=== PATIENT | female | born 1990 | race African-American/Black ===

== ENCOUNTER 2021-04-25 04:51 | Inpatient (IN) | payer OTHER, SELFPAY ==
[2021-04-25 06:10] LABS: Urine Blood 1+ (Negative); Urine Glucose Negative (Negative); Urine Protein 1+ (Negative); Urine Specific Gravity 1.025 (1.005-1.030)
[2021-04-25 06:15] LABS: Protime INR 1.12
[2021-04-25 06:16] LABS: Absolute Lymphocytes (CBC) 2.4 K/uL (0.7-4.9); Basophils % 0.9 % (0-1.3); Hematocrit 38.9 % (36.0-45.0); MPV 8.3 fL (7.6-11.3); RBC Red Blood Cell Count 4.28 M/uL (3.86-4.86)
[2021-04-25 06:30] LABS: Urine Specific Gravity/Preg 1.025 (1.005-1.030)
[2021-04-25 06:31] LABS: ALT/SGPT 24 U/L (12-78); AST/SGOT 16 U/L (15-37); Albumin 3.2 g/dL (3.4-5.0); Alkaline Phosphatase 70 U/L (45-117); BUN Blood Urea Nitrogen 11 mg/dL (7-18); Bicarbonate 25 mmol/L (21-32); Bilirubin Direct 0.2 mg/dL (0-0.2); Bilirubin Total 0.6 mg/dL (0.2-1.0); Glucose Level 107 mg/dL (74-106); Magnesium 2.2 mg/dL (1.8-2.4); NT PRO-BNP 1316 pg/mL (<125); Potassium 3.5 mmol/L (3.5-5.1); Protein, Total 7.3 g/dL (6.4-8.2); Sodium Level 142 mmol/L (136-145); Troponin (Emerg Dept Use Only) 0.13 ng/mL (0.0-0.045)
[2021-04-25] MEDS ORDERED: ASPIRIN 81 MG CHEWABLE TABLET ONE (06:46)
[2021-04-25] MEDS ORDERED: FUROSEMIDE 20 MG/ 2ML VIAL ONE (06:46)
[2021-04-25] MEDS ORDERED: NITROGLYCERIN 1 GM PKT TD ONE (06:46)
--- NOTE | 2021-04-25 06:57 | ER ---
Nurse's Notes [facility] Name: Tiffanie Pedroza Age: 30 yrs Sex: Female : 1990 Arrival Date: 04/25/2021 Time: 04:54 Bed 13 Private MD: Diagnosis: Congestive Heart Failure-New Onset, NSTEMI Presentation: 04/25 05:05 Chief complaint: Patient states: she has been having difficulty breathing x 3 weeks bb which is now causing her to have trouble sleeping, and it seems hard to catch her breath, she denies fever. Coronavirus screen: difficulty breathing, Client presents with at least one sign or symptom that may indicate coronavirus-19. Standard/surgical mask placed on the client. Ebola Screen: No symptoms or risks identified at this time. Initial Sepsis Screen: Does the patient meet any 2 criteria? No. Patient's initial sepsis screen is negative. Does the patient have a suspected source of infection? No. Patient's initial sepsis screen is negative. Risk Assessment: Do you want to hurt yourself or someone else? Patient reports no desire to harm self or others. Onset of symptoms was March 2021. 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 - Social history:: Smoking status: Patient reports the use of cigarette tobacco products, smokes one-half pack cigarettes per day, Patient uses alcohol, occasionally. Patient/guardian denies using street drugs. Screenin:23 Abuse screen: Denies threats or abuse. Nutritional screening: No deficits noted. fu Tuberculosis screening: No symptoms or risk factors identified. Fall Risk None identified. Assessment: 05:21 General: Appears in no apparent distress. Behavior is calm, cooperative, appropriate fu for age, Denies fever. Pain: Denies pain. Neuro: Level of Consciousness is awake, alert, obeys commands, Oriented to person, place, time, situation, Moves all extremities. Gait is steady, Speech is normal, Facial symmetry appears normal. Cardiovascular:. Cardiovascular: Rhythm is regular. Respiratory: Reports cough that is non-productive, Airway is patent Respiratory effort is even, Breath sounds are clear bilaterally. 06:22 Reassessment: Patient and/or family updated on plan of care and expected duration. Pain fu level reassessed. Patient is alert, oriented x 3, equal unlabored respirations, skin warm/dry/pink. 07:00 Reassessment: Patient appears in no apparent distress at this time. Patient and/or jl7 family updated on plan of care and expected duration. Pain level reassessed. Patient is alert, oriented x 3, equal unlabored respirations, skin warm/dry/pink. Patient denies pain at this time. Patient states symptoms have improved. 08:00 Reassessment: Patient appears in no apparent distress at this time. No changes from [facility] previously documented assessment. Patient and/or family updated on plan of care and expected duration. Pain level reassessed. Patient is alert, oriented x 3, equal unlabored respirations, skin warm/dry/pink. Pt waiting for room assignment. 09:00 Reassessment: Patient appears in no apparent distress at this time. No changes from [facility] previously documented assessment. Patient and/or family updated on plan of care and expected duration. Pain level reassessed. Patient is alert, oriented x 3, equal unlabored respirations, skin warm/dry/pink. 10:00 Reassessment: Patient appears in no apparent distress at this time. No changes from [facility] previously documented assessment. Patient and/or family updated on plan of care and expected duration. Pain level reassessed. Patient is alert, oriented x 3, equal unlabored respirations, skin warm/dry/pink. Vital Signs: 05:05 Weight 131.54 kg (R); Height 5 ft. 5 in. (165.10 cm) (R); Pain 0/10; bb 05:19 BP 166 / 130; Pulse 97; Resp 16; Temp 98.5; Pulse Ox 97% on R/A; Pain 0/10; fu 05:30 BP 161 / 116; Pulse 90; Resp 25; Pulse Ox 98% on R/A; fu 08:05 BP 160 / 121; Pulse 92; Resp 15; Pulse Ox 98% ; jl7 10:44 BP 148 / 102; Pulse 89; Resp 15; Pulse Ox 98% ; jl7 05:05 Body Mass Index 48.26 (131.54 kg, 165.10 cm) bb ED Course: 04:54 Patient arrived in ED. bp1 05:07 Sadiq Carlson, RN is Primary Nurse. fu 05:08 Triage completed. bb 05:08 Arm band placed on Patient placed in an exam room, on a stretcher, on pulse oximetry. bb 05:20 Alfredo Leone MD is Attending Physician. mh7 05:23 No provider procedures requiring assistance completed. fu 05:47 XRAY Chest (1 view) In Process Unspecified. EDMS 06:03 Basic Metabolic Panel Sent. fu 06:03 Inserted saline lock: 22 gauge in right forearm, using aseptic technique. Blood fu collected. 06:22 Patient has correct armband on for positive identification. Bed in low position. Call fu light in reach. Side rails up X 1. bus monitor on. Pulse ox on. NIBP on. Warm blanket given. 06:55 Lynn Michelle MD is Hospitalizing Provider. mh7 10:46 Patient admitted, IV remains in place. intact, No redness/swelling at site. jl7 Administered Medications: 06:57 Drug: Lasix (furosemide) 20 mg Route: IVP; Site: right antecubital; fu 10:48 Follow up: Response: No adverse reaction jl7 06:57 Drug: Aspirin Chewable Tablet 324 mg Route: PO; fu 10:48 Follow up: Response: No adverse reaction jl7 06:57 Drug: Nitro-Bid (nitroglycerin) Ointment 2 % 1 inches Route: Transdermal; Site: fu anterior chest wall; 10:48 Follow up: Response: No adverse reaction jl7 07:44 Drug: Lovenox (enoxaparin) 1 mg/kg Route: Sub-Q; Site: abdomen; jl7 10:48 Follow up: Response: No adverse reaction jl7 Outcome: 06:56 Decision to Hospitalize by Provider. mh7 11:09 Admitted to Tele accompanied by jourdan, via wheelchair, room 222, with chart, Report jl7 called to TIKA Gonzalez 11:09 Condition: stable 11:09 Discharge instructions given to patient, Instructed on the need for admit, Demonstrated understanding of instructions. 11:10 Patient left the ED. jl7 Signatures: Dispatcher [employer] Lakeisha Neff RN RN bb Leal, Jahala, RN RN jl7 Sadiq Carlson RN Darcy Iraheta Maurice, MD MD 7
--- NOTE | 2021-04-25 06:57 | EDPHYS ---
Physician Documentation [facility] Name: Tiffanie Pedroza Age: 30 yrs Sex: Female : 1990 Arrival Date: 04/25/2021 Time: 04:54 Bed 13 Private MD: ED Physician Alfredo Leone HPI: 04/25 06:06 This 30 yrs old Black Female presents to ER via Ambulatory with complaints of Breathing mh7 Difficulty. 06:06 The patient has shortness of breath with light activity. Onset: The symptoms/episode mh7 began/occurred 3 week(s) ago. Duration: The symptoms are intermittent. The patient's shortness of breath is aggravated by exertion, light activity, is alleviated by sitting up. Severity of symptoms: At their worst the symptoms were moderate 2 day(s) ago, in the emergency department the symptoms are unchanged. 06:06 Associated signs and symptoms: Pertinent positives: chest pain, Tightness, Pertinent mh7 negatives: non-productive cough, productive cough, diaphoresis, dizziness, fever, hemoptysis, loss of consciousness, nausea, numbness in extremities, visual changes, vomiting. 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 - Social history:: Smoking status: Patient reports the use of cigarette tobacco products, smokes one-half pack cigarettes per day, Patient uses alcohol, occasionally. Patient/guardian denies using street drugs. ROS: 06:06 Constitutional: Negative for fever, chills, and weight loss, Eyes: Negative for injury, mh7 pain, redness, and discharge, ENT: Negative for injury, pain, and discharge, Neck: Negative for injury, pain, and swelling, Abdomen/GI: Negative for abdominal pain, nausea, vomiting, diarrhea, and constipation, Back: Negative for injury and pain, : Negative for injury, bleeding, discharge, and swelling, MS/Extremity: Negative for injury and deformity, Skin: Negative for injury, rash, and discoloration, Neuro: Negative for headache, weakness, numbness, tingling, and seizure, Psych: Negative for depression, anxiety, suicide ideation, homicidal ideation, and hallucinations, Allergy/Immunology: Negative for hives, rash, and allergies, Endocrine: Negative for neck swelling, polydipsia, polyuria, polyphagia, and marked weight changes, Hematologic/Lymphatic: Negative for swollen nodes, abnormal bleeding, and unusual bruising. Exam: 06:06 Constitutional: This is a well developed, well nourished patient who is awake, alert, mh7 and in no acute distress. Head/Face: Normocephalic, atraumatic. Eyes: Pupils equal round and reactive to light, extra-ocular motions intact. Lids and lashes normal. Conjunctiva and sclera are non-icteric and not injected. Cornea within normal limits. Periorbital areas with no swelling, redness, or edema. Neck: Trachea midline, no thyromegaly or masses palpated, and no cervical lymphadenopathy. Supple, full range of motion without nuchal rigidity, or vertebral point tenderness. No Meningismus. Chest/axilla: Normal chest wall appearance and motion. Nontender with no deformity. No lesions are appreciated. Cardiovascular: Regular rate and rhythm with a normal S1 and S2. No gallops, murmurs, or rubs. Normal PMI, no JVD. No pulse deficits. 06:06 Abdomen/GI: Soft, non-tender, with normal bowel sounds. No distension or tympany. No guarding or rebound. No evidence of tenderness throughout. Back: No spinal tenderness. No costovertebral tenderness. Full range of motion. Skin: Warm, dry with normal turgor. Normal color with no rashes, no lesions, and no evidence of cellulitis. MS/ Extremity: Pulses equal, no cyanosis. Neurovascular intact. Full, normal range of motion. Neuro: Awake and alert, GCS 15, oriented to person, place, time, and situation. Cranial nerves II-XII grossly intact. Motor strength 5/5 in all extremities. Sensory grossly intact. Cerebellar exam normal. Normal gait. Psych: Awake, alert, with orientation to person, place and time. Behavior, mood, and affect are within normal limits. 06:06 Respiratory: the patient does not display signs of respiratory distress, Respirations: normal, Breath sounds: rhonchi, that are mild, are scattered, Respiratory rate: 16 Vital Signs: 05:05 Weight 131.54 kg (R); Height 5 ft. 5 in. (165.10 cm) (R); Pain 0/10; bb 05:19 BP 166 / 130; Pulse 97; Resp 16; Temp 98.5; Pulse Ox 97% on R/A; Pain 0/10; fu 05:30 BP 161 / 116; Pulse 90; Resp 25; Pulse Ox 98% on R/A; fu 08:05 BP 160 / 121; Pulse 92; Resp 15; Pulse Ox 98% ; jl7 10:44 BP 148 / 102; Pulse 89; Resp 15; Pulse Ox 98% ; jl7 05:05 Body Mass Index 48.26 (131.54 kg, 165.10 cm) bb MDM: 06:54 Differential diagnosis: Anemia Anxiety Reaction asthma, Bronchitis CHF exacerbation, 7 Chronic Obstructive Pulmonary Disease Myocardial Infarction pneumonia, Pneumothorax Psychogenic pulmonary edema, reactive airway disease. Data reviewed: vital signs, nurses notes, EMS record, lab test result(s), EKG, radiologic studies, plain films. Data interpreted: Pulse oximetry: on room air is 98 %. Interpretation: normal. Counseling: I had a detailed discussion with the patient and/or guardian regarding: the historical points, exam findings, and any diagnostic results supporting the discharge/admit diagnosis, the presence of at least one elevated blood pressure reading (>120/80) during this emergency department visit, lab results, radiology results, the need for further work-up and treatment in the hospital. Response to treatment: the patient's symptoms have mildly improved after treatment. 06:56 Patient medically screened. [facility] 04/25 05:30 Order name: Basic Metabolic Panel [facility] 04/25 05:30 Order name: CBC with Diff; Complete Time: 06:23 [facility] 04/25 05:30 Order name: LFT's; Complete Time: 06:42 [facility] 04/25 05:30 Order name: Magnesium; Complete Time: 06:42 [facility] 04/25 05:30 Order name: NT PRO-BNP; Complete Time: 06:42 [facility] 04/25 05:30 Order name: PT-INR; Complete Time: 06:23 [facility] 04/25 05:30 Order name: Troponin (emerg Dept Use Only); Complete Time: 06:42 [facility] 04/25 05:30 Order name: Basic Metabolic Panel; Complete Time: 06:42 EDMS 04/25 06:10 Order name: Urine --Ancillary (enter results); Complete Time: 06:42 cs9 04/25 06:10 Order name: Urine Dipstick-Ancillary; Complete Time: 06:23 EDMS 04/25 08:59 Order name: Comprehensive Metabolic Panel [facility] 04/25 08:59 Order name: CBC with Automated Diff EDMS 04/25 08:59 Order name: CBC with Automated Diff EDMS 04/25 08:59 Order name: Comprehensive Metabolic Panel [facility] 04/25 05:30 Order name: XRAY Chest (1 view) [facility] 04/25 08:50 Order name: Chest Angio [facility] 04/25 08:59 Order name: Echo with Doppler [facility] 04/25 08:59 Order name: D-Dimer [facility] 04/25 08:59 Order name: D-Dimer [facility] 04/25 08:59 Order name: Magnesium [facility] 04/25 08:59 Order name: Magnesium [facility] 04/25 08:59 Order name: NT PRO-BNP [facility] 04/25 08:59 Order name: NT PRO-BNP [facility] 04/25 08:59 Order name: Phosphorus [facility] 04/25 08:59 Order name: Phosphorus [facility] 04/25 08:59 Order name: Troponin I [facility] 04/25 09:11 Order name: COVID-19 (Coronavirus) Document "Date of Onset" if Symptomatic ss 04/25 09:45 Order name: CORONAVIRUS [facility] 04/25 10:32 Order name: SARS-COV-2 RT PCR [facility] 04/25 05:30 Order name: EKG; Complete Time: 05:30 [facility] 04/25 05:30 Order name: Cardiac monitoring; Complete Time: 06:03 [facility] 04/25 05:30 Order name: EKG - Nurse/Tech; Complete Time: 06:03 [facility] 04/25 05:30 Order name: IV Saline Lock; Complete Time: 06:03 [facility] 04/25 05:30 Order name: Labs collected and sent; Complete Time: 06:03 [facility] 04/25 05:30 Order name: O2 Per Protocol; Complete Time: 06:03 [facility] 04/25 05:30 Order name: O2 Sat Monitoring; Complete Time: 06:03 [facility] 04/25 05:30 Order name: Urine Dipstick-Ancillary (obtain specimen); Complete Time: 06:03 [facility] 04/25 05:30 Order name: Urine Test (obtain specimen); Complete Time: 06:03 [facility] 04/25 08:59 Order name: CONS Physician Consult [facility] 04/25 08:59 Order name: Heart Healthy [facility] Administered Medications: 06:57 Drug: Lasix (furosemide) 20 mg Route: IVP; Site: right antecubital; fu 10:48 Follow up: Response: No adverse reaction jl7 06:57 Drug: Aspirin Chewable Tablet 324 mg Route: PO; fu 10:48 Follow up: Response: No adverse reaction jl7 06:57 Drug: Nitro-Bid (nitroglycerin) Ointment 2 % 1 inches Route: Transdermal; Site: fu anterior chest wall; 10:48 Follow up: Response: No adverse reaction 7 07:44 Drug: Lovenox (enoxaparin) 1 mg/kg Route: Sub-Q; Site: abdomen; jl7 10:48 Follow up: Response: No adverse reaction [facility] Disposition Summary: 04/25/21 06:56 Hospitalization Ordered Hospitalization Status: Inpatient Admission [facility] Provider: Lynn Michelle [facility] Location: Telemetry/MedSurg (Inpatient) [facility] Condition: Stable [facility] Problem: new [facility] Symptoms: have improved [facility] Bed/Room Type: Standard [facility] Room Assignment: 222(04/25/21 10:37) Diagnosis - Congestive Heart Failure-New Onset, NSTEMI [facility] Forms: - Medication Reconciliation Form [facility] - SBAR form [facility] Signatures: Dispatcher [employer] [facility] Katerin Peters RN Lakeisha Wilkinson RN Kati Del Real RN RN jl7 Umadhay, Felix, RN RN fu Holmes, Maurice, MD MD [facility] Corrections: (The following items were deleted from the chart) 06:10 06:06 Associated signs and symptoms: Pertinent positives: chest pain, Orthopnea, PND, [facility] Pertinent negatives: non-productive cough, productive cough, diaphoresis, dizziness, fever, hemoptysis, loss of consciousness, nausea, numbness in extremities, visual changes, vomiting, [facility] 10:37 06:56 [facility] dw
[2021-04-25] MEDS ORDERED: ENOXAPARIN 100 MG/ML SYR SQ ONE (07:16)
[2021-04-25] MEDS ORDERED: ONDANSETRON 4 MG/2 ML VIAL IV PRN (08:50)
[2021-04-25] MEDS: VALSARTAN 80 MG TAB PO SCH (09:00)
--- NOTE | 2021-04-25 10:43 | RAD REPORT ---
EXAM DESCRIPTION: CT - Chest Angio - 04/25/2021 9:21 am CLINICAL HISTORY: dyspnea COMPARISON: Chest Single View dated 04/25/2021 Chest Wall: No suspicious thyroid nodules or pathologic lymphadenopathy. Lungs: Limited by respiratory motion. Interlobular septal thickening. Pleura: Small right pleural effusion. Mediastinum/deborah: No pathologic lymphadenopathy. Pulmonary arteries/Aorta: No filling defect identified. No aortic aneurysm. Heart: No significant pericardial effusion. Cardiomegaly. Upper abdomen: No acute abnormality. Bones: No acute abnormality. All CT scans are performed using dose optimization technique as appropriate and may include automated exposure control or mA/KV adjustment according to patient size. IMPRESSION: Negative for pulmonary embolism. Interstitial pulmonary edema with small effusions.
--- NOTE | 2021-04-25 11:34 | RAD REPORT ---
EXAM DESCRIPTION: RAD - Chest Single View - 04/25/2021 5:47 am CLINICAL HISTORY: The patient is 30 years old and is Female; SOB TECHNIQUE: Single view of the chest. COMPARISON: No relevant prior studies available. FINDINGS: Lungs: Linear atelectasis or scarring right midlung. No pulmonary vascular congestion. No consolidation. Pleural space: No pleural effusion or pneumothorax. Heart: Enlargement of the cardiac silhouette. Mediastinum: Unremarkable. Bones/joints: Unremarkable. Upper abdomen: No free air in the visualized upper abdomen. IMPRESSION: 1. Linear atelectasis or scarring right midlung. 2. Enlargement of the cardiac silhouette. Electronically signed by: Missy Ryan MD 04/25/2021 5:57 AM CUSTOMER CARE CONSULTANT Due to temporary technical issues with the PACS/Fluency reporting system, reports are being signed by the in house radiologist without review as a courtesy to ensure prompt reporting. The interpreting r adiologist is fully responsible for the content of the report.
[2021-04-25 12:18] VITALS: BMI 48.2
[2021-04-25] MEDS: FUROSEMIDE 40 MG/4 ML VIAL IV SCH ×2 (12:34→17:06)
[2021-04-25] MEDS: ACETAMINOPHEN 500 MG TAB PO PRN ×2 (12:34→17:13)
[2021-04-25] MEDS: ENOXAPARIN 40 MG/0.4 ML SQ SCH (12:35)
--- NOTE | 2021-04-25 13:16 | EKG ---
Test Date: 2021-04-25 Test Time: 05:45:14 Trap Setter: BLAKE MEASUREMENT RESULTS: Intervals: Rate: 100 ND: 178 QRSD: 90 QT: 386 QTc: 497 Terril: P: 66 ND: 178 QRS: 40 T: 35 INTERPRETIVE STATEMENTS: Normal sinus rhythm Possible Left atrial enlargement Possible Anterior infarct, age undetermined Abnormal ECG No previous ECG available for comparison Electronically Signed On 04-25-21 13:16:02 MANAGER STARS by Ranjit Busch
--- NOTE | 2021-04-25 13:27 | ECHO ---
HEIGHT: 5 ft 5 in WEIGHT: 290 lb 0 oz DATE OF STUDY: 04/25/[address]: Lynn Michelle MD 2-DIMENSIONAL: YES M.MODE: YES DOPPLER: YES COLOR FLOW: YES TDS: PORTABLE: DEFINITY: BUBBLE STUDY: DIAGNOSIS: CONGESTIVE HEART FAILURE CARDIAC HISTORY: CATHERIZATION: SURGERY: PROSTHETIC VALVE: PACEMAKER: MEASUREMENTS (cm) DIASTOLIC (NORMALS) SYSTOLIC (NORMALS) IVSd 1.2 (0.6-1.2) LA Diam 4.3 (1.9-4.0) LVEF 20% LVIDd 6.8 (3.5-5.7) LVIDs 6.2 (2.0-3.5) %FS 9% LVPWd 1.3 (0.6-1.2) Ao Diam 2.7 (2.0-3.7) 2 DIMENSIONAL ASSESSMENT: RIGHT ATRIUM: NORMAL LEFT ATRIUM: DILATED RIGHT VENTRICLE: NORMAL LEFT VENTRICLE: DILATED TRICUSPID VALVE: NORMAL MITRAL VALVE: NORMAL PULMONIC VALVE: NORMAL AORTIC VALVE: NORMAL PERICARDIAL EFFUSION: NONE AORTIC ROOT: NORMAL LEFT VENTRICULAR WALL MOTION: SEVERE GLOBAL HYPOKINESIS DOPPLER/COLOR FLOW: NORMAL COMMENTS: SEVERE GLOBAL HYPOKINESIS. LEFT VENTRICULAR DILATION. LEFT ATRIAL ENLARGEMENT. EJECTION FRACTION 20%. TECHNOLOGIST: YOUNG THAYER
[2021-04-25] MEDS ORDERED: INFLUENZA VACCINE (for 6+ mo) 0.5 ML DOSE IMVAC ONE (15:00)
--- NOTE | 2021-04-25 18:39 | P.HP ---
Certification for Inpatient Patient admitted to: Inpatient With expected LOS: >2 Midnights Patient will require the following post-hospital care: None Practitioner: I am a practitioner with admitting privileges, knowledge of patient current condition, hospital course, and medical plan of care. Services: Services provided to patient in accordance with Admission requirements found in Title 42 Section 412.3 of the Code of Federal Regulations Patient History Date of Service: 04/25/21 Reason for admission: Acute CHF History of Present Illness: Patient is a 30yo who presented to the hospital with dyspnea. Patient was found have significantly elevated blood pressure. Patient states that she started getting high blood pressure after her 1st . She never really followed up but lash year when she was going to a dental appointment to get a tooth extraction they have refused to do a because her blood pressure was elevated. She was told to follow with the primary care provider but she never did. She comes in with severely short of breath and severely elevated blood pressure. Chest x-ray revealed bilateral pulmonary edema and cardiomegaly. Patient was admitted to the hospital for further evaluation. Allergies No Known Allergies Allergy (Unverified 04/25/21 09:20) Home Medications: NK [No Home Meds] 04/25/21 - Social History Smoking Status: Current every day smoker Review of Systems 10-point ROS is otherwise unremarkable Physical Examination - Vital Signs Temperature: 96.9 F Blood Pressure: 144/92 Pulse: 85 Respirations: 20 Pulse Ox (%): 96 - Physical Exam General: Alert, In no apparent distress, Oriented x3 HEENT: Atraumatic, PERRLA, Mucous membr. moist/pink, EOMI, Sclerae nonicteric Neck: Supple, 2+ carotid pulse no bruit, No LAD, Without JVD or thyroid abnormality Respiratory: Diminished, Crackles/rales Cardiovascular: Regular rate/rhythm, Normal S1 S2, No murmurs Gastrointestinal: Normal bowel sounds, Soft and benign, Non-distended, No tenderness Musculoskeletal: No clubbing, No swelling, No tenderness Integumentary: Tenderness/swelling, Erythema, Warmth Neurological: Normal gait, Normal speech, Normal strength at 5/5 x4 extr, Normal tone, Normal affect Lymphatics: No axilla or inguinal lymphadenopathy - Studies Laboratory Data (last 24 hrs) 04/25/21 06:01: PT 12.9 H, INR 1.12 04/25/21 06:01: WBC 7.50, Hgb 13.1, Hct 38.9, Plt Count 278 04/25/21 06:01: Sodium 142, Potassium 3.5, BUN 11, Creatinine 0.77, Glucose 107 H, Magnesium 2.2, Total Bilirubin 0.6, AST 16, ALT 24, Alkaline Phosphatase 70 Assessment & Plan - Problems (Diagnosis) (1) Acute CHF Current Visit: Yes Status: Acute (2) Skin abscess Current Visit: Yes Status: Acute - Plan 1. Echocardiogram 2. We will start patient on an SHAHRZAD inhibitor or an ARB 3. We will start patient on a Beta gustavo 4. Cardiology consultation 5. Aggressive diuresis 6. Strict I's and O's 7. Repeat CXR 8. Daily weights 9. Education regarding diet and treatment of congestive heart failure 10. Continue with antibiotic therapy - Advance Directives Does patient have a Living Will: No Does patient have a Durable POA for Healthcare: No
[2021-04-25] MEDS: HYDRALAZINE HCL 20 MG/ML VIAL IV PRN (21:58)
[2021-04-26] MEDS ORDERED: MORPHINE 2 MG/ML SYR IV ONE (00:11)
[2021-04-26] MEDS ORDERED: LABETALOL 20 MG/4ML SYRINGE IV PRN (00:11)
[2021-04-26 06:02] LABS: Absolute Lymphocytes (CBC) 2.7 K/uL (0.7-4.9); Basophils % 0.7 % (0-1.3); Hematocrit 38.8 % (36.0-45.0); Lymphocytes % 36.4 % (15.3-44.8); MPV 8.6 fL (7.6-11.3); RBC Red Blood Cell Count 4.27 M/uL (3.86-4.86)
[2021-04-26 06:27] LABS: ALT/SGPT 19 U/L (12-78); AST/SGOT 12 U/L (15-37); Alkaline Phosphatase 69 U/L (45-117); BUN Blood Urea Nitrogen 10 mg/dL (7-18); Bicarbonate 27 mmol/L (21-32); Bilirubin Total 0.8 mg/dL (0.2-1.0); Glucose Level 93 mg/dL (74-106); NT PRO-BNP 1570 pg/mL (<125); Phosphorus 3.2 mg/dL (2.5-4.9); Protein, Total 7.3 g/dL (6.4-8.2); Sodium Level 139 mmol/L (136-145)
[2021-04-26 06:30] LABS: Potassium 2.8 mmol/L (3.5-5.1)
[2021-04-26] MEDS ORDERED: KCL 20 MEQ/100 mL IVPB 20 MEQ/100 ML BAG IV SCH (07:00)
[2021-04-26] MEDS ORDERED: POTASSIUM 25 MEQ EFFERV TAB PO ONE (08:08)
[2021-04-26] MEDS: VALSARTAN 80 MG TAB PO SCH ×2 (08:50→20:32)
[2021-04-26] MEDS: FUROSEMIDE 40 MG/4 ML VIAL IV SCH ×2 (08:51→18:52)
[2021-04-26] MEDS: ENOXAPARIN 40 MG/0.4 ML SQ SCH (08:51)
[2021-04-26] MEDS ORDERED: METOPROLOL TAR 50 MG TAB PO SCH (09:00)
[2021-04-26] MEDS ORDERED: POTASSIUM CL SA 10 MEQ TAB PO ONE (14:32)
[2021-04-26] MEDS: VANCOMYCIN 2 GM in NA CHLORIDE 0.9% 500 ML IVPB SCH (14:35)
[2021-04-26] MEDS: carvediloL 25 MG TAB PO SCH (18:53)
[2021-04-26] MEDS: AMPICILLIN/SULBACT 3 GM in NA CHLORIDE 0.9% 100 ML IVPB SCH ×2 (18:57→23:56)
[2021-04-26] MEDS: HYDRALAZINE HCL 20 MG/ML VIAL IV PRN (20:30)
--- NOTE | 2021-04-26 20:52 | P.PN ---
Subjective Date of Service: 04/26/21 Spoke with patient regarding echocardiogram findings. Patient was understandably very upset. Continue with diuresis at this time. Continue with strict blood pressure control. General surgery consultation pending Review of Systems 10-point ROS is otherwise unremarkable Physical Examination - Vital Signs Temperature: 96.9 F Blood Pressure: 144/92 Pulse: 85 Respirations: 20 Pulse Ox (%): 96 - Physical Exam General: Alert, In no apparent distress, Oriented x3 HEENT: Atraumatic, PERRLA, EOMI Neck: Supple, JVD not distended Respiratory: Clear to auscultation bilaterally, Normal air movement Cardiovascular: Regular rate/rhythm, Normal S1 S2 Gastrointestinal: Normal bowel sounds, Soft and benign, Non-distended, No tenderness Musculoskeletal: No clubbing, No swelling, No tenderness Neurological: Sensation intact, Cranial nerves 3-12 intact - Studies Medications List Reviewed: Yes Assessment & Plan - Problems (Diagnosis) (1) Acute CHF Status: Acute (2) Skin abscess Status: Acute - Plan 1. Echocardiogram Showed an ejection fraction of 20% 2. Continue losartan 3. Started carvedilol 4. Cardiology consultation Appreciated 5. Aggressive diuresis 6. Strict I's and O's 7. Repeat CXR 8. Daily weights 9. Education regarding diet and treatment of congestive heart failure 10. Continue with antibiotic therapy; general surgery consultation pending Discharge Plan: Home Plan to discharge in: Greater than 2 days - Advance Directives Does patient have a Living Will: No Does patient have a Durable POA for Healthcare: No - Code Status/Comfort Care Code Status Assessed: Yes Code Status: Full Code Critical Care: No Time Spent Managing PTS Care (In Minutes): 35
[2021-04-27] MEDS: MORPHINE 2 MG/ML SYR IV PRN ×2 (01:24→22:13)
[2021-04-27] MEDS: VANCOMYCIN 2 GM in NA CHLORIDE 0.9% 500 ML IVPB SCH ×2 (01:24→16:25)
[2021-04-27] MEDS: carvediloL 25 MG TAB PO SCH ×2 (05:47→18:22)
[2021-04-27] MEDS: AMPICILLIN/SULBACT 3 GM in NA CHLORIDE 0.9% 100 ML IVPB SCH ×4 (05:48→23:57)
[2021-04-27] MEDS: VALSARTAN 80 MG TAB PO SCH ×2 (09:00→20:24)
[2021-04-27] MEDS: FUROSEMIDE 40 MG/4 ML VIAL IV SCH ×2 (09:32→18:22)
[2021-04-27] MEDS: ENOXAPARIN 40 MG/0.4 ML SQ SCH (09:32)
--- NOTE | 2021-04-27 15:07 | P.CNS ---
Date of Consult: 04/27/21 PC: I was asked to see this patient in regards to her large abscess on her flank. HPC: Patient has had this for the last 2 days. Has gradually been increasing in size. Causing more pain and discomfort. 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 States that she has been in relatively good, but does have a history of heart failure. O/E: Vital signs are stable HEENT: Within normal limits Lead: On the patient's right side, in one of the folds just above her waist, has an area measuring approximately 2 cm in size. Is an abscess that has formed, but is almost ready to burst. Impression: Patient has a abscess on her right flank Plan: We will put warm compresses to this area as well as some benzocaine. I think this was going to burst almost by itself. If it has not we will take her to the OR in the morning for incision, drainage and sharp debridement. Thank you.
[2021-04-27] MEDS ORDERED: BENZOCAINE 20% 5.25 GM JAR TOP SCH (17:00)
[2021-04-27] MEDS: METHYL SALICYLATE/MENTHOL 3 OZ TUBE TOP SCH ×2 (18:23→20:23)
--- NOTE | 2021-04-27 21:34 | P.PN ---
Date of Service: 04/27/21 Subjective Should continue to improve with any complaints. Clinical symptoms are improving. Patient still with the abscess which is not ruptured. Continue with supportive care and general surgery consultation pending. Physical Examination - Vital Signs Reviewed - Physical Exam General: Alert, In no apparent distress, Oriented x3 Respiratory: Basilar crackles Cardiovascular: Regular rate/rhythm, Normal S1 S2 Gastrointestinal: Normal bowel sounds, Soft and benign, Non-distended, No tenderness Musculoskeletal: No clubbing, No swelling, No tenderness Neurological: Sensation intact, Cranial nerves 3-12 intact Skin: Infected sebaceous cyst Assessment & Plan - Problems (Diagnosis) (1) Acute CHF Current Visit: Yes Status: Acute (2) Skin abscess Current Visit: Yes Status: Acute - Plan 1. Echocardiogram Showed an ejection fraction of 20%. Cardiomyopathy. Cardiac medications 2. Continue with losartan 3. Continue carvedilol 4. Cardiology consultation follow up Outpatient 5. Aggressive diuresis 6. Strict I's and O's 7. May need surgical intervention. 8. Daily weights 9. Education regarding diet and treatment of congestive heart failure 10. Continue with antibiotic therapy along with warm compressor - Advance Directives Does patient have a Living Will: No Does patient have a Durable POA for Healthcare: No
[2021-04-28] MEDS: VANCOMYCIN 2 GM in NA CHLORIDE 0.9% 500 ML IVPB SCH (03:01)
[2021-04-28] MEDS: AMPICILLIN/SULBACT 3 GM in NA CHLORIDE 0.9% 100 ML IVPB SCH (05:48)
[2021-04-28] MEDS: carvediloL 25 MG TAB PO SCH (05:50)
[2021-04-28 06:02] LABS: BUN Blood Urea Nitrogen 12 mg/dL (7-18); Bicarbonate 25 mmol/L (21-32); Glucose Level 101 mg/dL (74-106); Magnesium 2.1 mg/dL (1.8-2.4); Phosphorus 4.1 mg/dL (2.5-4.9); Potassium 3.3 mmol/L (3.5-5.1); Sodium Level 141 mmol/L (136-145)
--- NOTE | 2021-04-28 06:08 | P.DS ---
Admission Date: 04/25/21 Discharge Date: 04/28/21 Primary Care Provider: none Disposition: ROUTINE DISCHARGE Discharge Condition: GOOD Reason for Admission: Acute CHF Consultations: Surgery-Dr. Mckenna Cardiology-Dr. Busch Procedures: COVID: Negative ECHO: MEASUREMENTS (cm) DIASTOLIC (NORMALS) SYSTOLIC (NORMALS) IVSd 1.2 (0.6-1.2) LA Diam 4.3 (1.9-4.0) LVEF 20% LVIDd 6.8 (3.5-5.7) LVIDs 6.2 (2.0-3.5) %FS 9% LVPWd 1.3 (0.6-1.2) Ao Diam 2.7 (2.0-3.7) 2 DIMENSIONAL ASSESSMENT: RIGHT ATRIUM: NORMAL LEFT ATRIUM: DILATED RIGHT VENTRICLE: NORMAL LEFT VENTRICLE: DILATED TRICUSPID VALVE: NORMAL MITRAL VALVE: NORMAL PULMONIC VALVE: NORMAL AORTIC VALVE: NORMAL PERICARDIAL EFFUSION: NONE AORTIC ROOT: NORMAL LEFT VENTRICULAR WALL MOTION: SEVERE GLOBAL HYPOKINESIS DOPPLER/COLOR FLOW: NORMAL COMMENTS: SEVERE GLOBAL HYPOKINESIS. LEFT VENTRICULAR DILATION. LEFT ATRIAL ENLARGEMENT. EJECTION FRACTION 20%. CT Chest: COMPARISON: Chest Single View dated 04/25/2021 Chest Wall: No suspicious thyroid nodules or pathologic lymphadenopathy. Lungs: Limited by respiratory motion. Interlobular septal thickening. Pleura: Small right pleural effusion. Mediastinum/deborah: No pathologic lymphadenopathy. Pulmonary arteries/Aorta: No filling defect identified. No aortic aneurysm. Heart: No significant pericardial effusion. Cardiomegaly. Upper abdomen: No acute abnormality. Bones: No acute abnormality. All CT scans are performed using dose optimization technique as appropriate and may include automated exposure control or mA/KV adjustment according to patient size. IMPRESSION: Negative for pulmonary embolism. Interstitial pulmonary edema with small effusions. Medical Problem List: Dyspnea secondary to acute on chronic systolic CHF Hypertension Right flank small abscess suspect sebaceous cyst Brief History of Present Illness: 30-year-old -[place] female presented with shortness of breath. Patient found to have significantly elevated blood pressure. Patient reports high blood pressure with her first . She did not follow-up with anybody thereafter. Chest x-ray revealed bilateral pulmonary edema with cardiomegaly. Patient admitted for treatment. Hospital Course: Patient presented with dyspnea secondary to acute on chronic systolic CHF complicated with elevated blood pressure with hypertension. Patient was admitted for treatment. Patient received diuresis and blood pressure medication. Her condition improved with medication. Echocardiogram shows ejection fraction 20% with severe global hypokinesis and left ventricular d ilation. CT chest was negative for pulmonary embolism. Patient seen and evaluated by cardiology. Patient has done well with medication. At discharge the patient will continue with the 1500 cc/day fluid restriction and low-salt diet. Recommend to monitor her weight daily. If her weight increases by more than 5 pounds she is to contact her PCP or cardiology for further recommendation. At discharge the patient will continue with aspirin 81 mg daily, carvedilol 25 mg 1 pill twice daily, Diovan 160 mg 1 pill twice daily, and Lasix 40 mg 1 pill twice daily. Recommend to maintain blood pressure less than 130/80. If blood pressure remains above 140/90 she is to contact her PCP or cardiology for further recommendation. Lasix can be further adjusted if with good urinary output and no further edema. This can be addressed by her PCP or cardiology. Education on CHF, hypertension provided. If the patient can get on insurance, patient may benefit with Tamtron in the future. Recommend follow-up with cardiology in 1 to 2 weeks to follow-up his hospitalization and continue her care. Recommend follow-up with PCP in 1 to 2 weeks to follow-up his hospitalization and continue her care. Patient had small right flank abscess likely infected sebaceous cyst. This ruptured on its own without requiring any surgical intervention. Patient was to have surgical I&D but patient prefers to go home. Wound care addressed in detail with patient. Recommend to clean with antibacterial soap and water at least twice daily. Patient may apply warm compress to help with expression of fluid. Apply Bactroban ointment and gauze to the area twice daily. Patient will continue with Augmentin 500 mg 1 pill twice daily for 7 days. Recommend to follow-up with surgery as an outpatient if abscess persisted or got worse. Vital Signs/Physical Exam: Temp Pulse Resp BP Pulse Ox 97.3 F 79 19 140/84 93 04/28/21 04:00 04/28/21 05:50 04/28/21 04:00 04/28/21 05:50 04/28/21 04:00 General: Alert, In no apparent distress, Oriented x3, Cooperative HEENT: Atraumatic Neck: Supple Respiratory: Clear to auscultation bilaterally Cardiovascular: Normal pulses, Regular rate/rhythm Gastrointestinal: Normal bowel sounds Musculoskeletal: No erythema, No tenderness, No warmth Integumentary: Other (Pain/abscess to the right flank.) Neurological: Normal speech, Normal strength at 5/5 x4 extr, Normal tone Laboratory Data at Discharge: WBC 7.30 K/uL (4.3-10.9) 04/26/21 05:10 Hgb 13.3 g/dL (12.0-15.0) 04/26/21 05:10 Hct 38.8 % (36.0-45.0) 04/26/21 05:10 Plt Count 244 K/uL (152-406) 04/26/21 05:10 PT 12.9 SECONDS (9.5-12.5) H 04/25/21 06:01 INR 1.12 04/25/21 06:01 Sodium 141 mmol/L (136-145) 04/28/21 05:21 Potassium 3.3 mmol/L (3.5-5.1) L 04/28/21 05:21 BUN 12 mg/dL (7-18) 04/28/21 05:21 Creatinine 0.87 mg/dL (0.55-1.3) 04/28/21 05:21 Glucose 101 mg/dL (74-106) 04/28/21 05:21 Phosphorus 4.1 mg/dL (2.5-4.9) 04/28/21 05:21 Magnesium 2.1 mg/dL (1.8-2.4) 04/28/21 05:21 Total Bilirubin 0.8 mg/dL (0.2-1.0) 04/26/21 05:10 AST 12 U/L (15-37) L 04/26/21 05:10 ALT 19 U/L (12-78) 04/26/21 05:10 Alkaline Phosphatase 69 U/L (45-117) 04/26/21 05:10 Troponin I 0.13 ng/mL (0.0-0.045) H 04/25/21 12:06 Home Medications: Amoxicillin/Potassium Clav [Augmentin 500-125 Tablet] 1 each PO BID #14 tablet 04/28/21 Aspirin [Aspirin EC 81 MG] 81 mg PO DAILY #90 tablet.dr 04/28/21 Furosemide [Lasix] 40 mg PO BIDL #60 tab 04/28/21 Mupirocin Oint [Bactroban 2% Ointment] 8 appl TOP BID #1 tube 04/28/21 Valsartan [Diovan] 160 mg PO BID #60 tab 04/28/21 carvediloL [Coreg*] 25 mg PO BID 6AM 6PM #60 tab 04/28/21 New Medications: Aspirin [Aspirin EC 81 MG] 81 mg PO DAILY #90 tablet. Amoxicillin/Potassium Clav [Augmentin 500-125 Tablet] 1 each PO BID #14 tablet Mupirocin Oint [Bactroban 2% Ointment] 8 appl TOP BID #1 tube carvediloL [Coreg*] 25 mg PO BID 6AM 6PM #60 tab Valsartan [Diovan] 160 mg PO BID #60 tab Furosemide [Lasix] 40 mg PO BIDL #60 tab Physician Discharge Instructions: Patient presented with dyspnea secondary to acute on chronic systolic CHF complicated with elevated blood pressure with hypertension. Patient was admitted for treatment. Patient received diuresis and blood pressure medication. Her condition improved with medication. Echocardiogram shows ejection fraction 20% with severe global hypokinesis and left ventricular dilation. CT chest was negative for pulmonary embolism. Patient seen and evaluated by cardiology. Patient has done well with medication. At discharge the patient will continue with the 1500 cc/day fluid restriction and low-salt diet. Recommend to monitor her weight daily. If her weight increases by more than 5 pounds she is to contact her PCP or cardiology for further recommendation. At discharge the patient will continue with aspirin 81 mg daily, carvedilol 25 mg 1 pill twice daily, Diovan 160 mg 1 pill twice daily, and Lasix 40 mg 1 pill twice daily. Recommend to maintain blood pressure less than 130/80. If blood pressure remains above 140/90 she is to contact her PCP or cardiology for further recommendation. Lasix can be further adjusted if with good urinary output and no further edema. This can be addressed by her PCP or cardiology. Education on CHF, hypertension provided. If the patient can get on insurance, patient may benefit with Entresto in the future. Recommend follow- up with cardiology in 1 to 2 weeks to follow-up his hospitalization and continue her care. Recommend follow-up with PCP in 1 to 2 weeks to follow-up his hospitalization and continue her care. Patient had small right flank abscess likely infected sebaceous cyst. This ruptured on its own without requiring any surgical intervention. Patient was to have surgical I&D but patient prefers to go home. Wound care addressed in detail with patient. Recommend to clean with antibacterial soap and water at least twice daily. Patient may apply warm compress to help with expression of fluid. Apply Bactroban ointment and gauze to the area twice daily. Patient will continue with Augmentin 500 mg 1 pill twice daily for 7 days. Recommend to follow-up with surgery as an outpatient if abscess persisted or got worse. Diet: AHA Activity: Ad mary Followup: NONE,NONE [Primary Care Provider] - Time spent managing pt's care (in minutes): 55
[2021-04-28] MEDS ORDERED: POTASSIUM CL SA 10 MEQ TAB PO ONE (09:00)
[2021-04-28] MEDS: METHYL SALICYLATE/MENTHOL 3 OZ TUBE TOP SCH (09:00)
[2021-04-28] MEDS: VALSARTAN 80 MG TAB PO SCH (09:00)
[2021-04-28] MEDS: ENOXAPARIN 40 MG/0.4 ML SQ SCH (09:02)
[2021-04-28] MEDS: FUROSEMIDE 40 MG/4 ML VIAL IV SCH (09:03)
[2021-04-28 09:15] VITALS: O2SAT 99
--- NOTE | 2021-04-28 12:07 | CON ---
Date of Consultation: 04/25/2021 History Of Present Illness: She is 30 years old. She was admitted for congestive heart failure and hypertensive crisis. Echocardiogram showed ejection fraction of 20%. I saw Ms. Pedroza on 1. When she came in, she mostly came in because of shortness of breath that has been going on for ab out a month or 2. Denied any chest pain. Denied any syncope or palpitation. Allergies: NONE. Past Medical History: None. Medications: At home are none. Review of Systems: Negative. Social History: Negative. Family History: Negative. Physical Examination: Vital Signs: When she came in, her blood pressure was 178/108. She weighed 290 pounds. Otherwise, her vital signs were stable. She was in sinus rhythm. O2 saturation was 97% on room air. HEENT: Negative. Neck: Supple with no bruit. Chest: Revealed some rales. Cardiac: Revealed a regular rhythm and rate with an S3 and S4 gallops. Abdomen: Obese, but benign. Extremities: Revealed 2+ edema. Diagnostic Data: Chest x-ray showed volume overload. Her potassium was 3.3. Her creatinine 0.87. The rest of the blood work was normal. Her echocardiogram showed an ejection fraction of 20%. Impression And Plan: Acute systolic congestive heart failure, dilated cardiomyopathy, could be idiop athic and second could be related to hypertension. She needs to be on carvedilol. She needs to be o n SHAHRZAD inhibitor. She needs to be on Lasix. She needs her blood pressure very well controlled. My g ut feeling is that she will need a defibrillator down the road. Entresto will be a good choice. I a m not so sure if she could afford it. I will discuss the case further with Dr. Michelle. UGO/GABINO Voice ID: [id number] Report ID: [id number]
[2021-04-28 12:31] VITALS: BP 144/92; TEMP 96.9
== END 2021-04-28 11:15 | disposition home or self-care (01) | DRG 291 ==
LOC: ER 04:51 → ERHOLD 08:50 → 2ND 11:04
PROVIDERS: ADMIT Hospitalist; ATTEND Hospitalist
DX: I11.0 Hypertensive heart disease with heart failure (principal); I50.23 Acute on chronic systolic (congestive) heart failure; L72.3 Sebaceous cyst; F17.210 Nicotine dependence, cigarettes, uncomplicated; Z20.822 Contact with and (suspected) exposure to COVID-19
CPT/HCPCS: 36415; 71045; 71275; 80048; 80053; 80076; 80202; 81003; 81025; 83735; 83880; 84100; 84132; 84484; 85025; 85379; 85610; 93005; 93306; 96372; 96374; 99285; J0295; J0360; J1650; J1940; J2270; J3370; J3480; J7040; Q9967; U0003

== ENCOUNTER → 2023-08-23 | Emergency (ER) | payer SELFPAY ==
[~2023-08-23] MED LIST: HYDRALAZINE HCL 20 MG/ML VIAL ONE; KCL 20 MEQ/100 mL IVPB 100 ML IV ONE; NA CHLORIDE 0.9% 1,000 ML ONE; TENECTEPLASE 50 MG/10 ML VIAL IV ONE
[2023-08-23 06:16] LABS: Absolute Lymphocytes (CBC) 0.7 K/uL (0.7-4.9); Absolute Monocytes 0.3 K/uL (0.1-1.3); Absolute Neutrophil 4.7 K/uL (1.8-8.0); Basophils % 0.3 % (0-1.3); Eosinophils % 0.8 % (0-4.4); Hematocrit 34.3 % (36.0-45.0); Hemoglobin 11.9 g/dL (12.0-15.0); Lymphocytes % 12.2 % (15.3-44.8); MCH 31.8 pg (27.0-35.0); MCHC 34.6 g/dL (32.0-36.0); MCV 91.9 fL (80-100); MPV 8.6 fL (7.6-11.3); Monocytes % 4.9 % (3.3-12.3); Neutrophils % 81.8 % (41.7-73.7); Nucleated Red Blood Cells % 0.2 % (0-0); Platelets 228 thou/uL (152-406); RBC Red Blood Cell Count 3.73 M/uL (3.86-4.86); Red Cell Distribution Width 13.5 % (12.1-15.2)
[2023-08-23 06:19] LABS: PTT, Activated Partial Thromb 29.2 SECONDS (24.3-36.9); Protime INR 1.28
[2023-08-23 06:32] LABS: Albumin 2.9 g/dL (3.4-5.0); Albumin/Globulin Ratio 0.7 (1.1-1.8); Anion Gap 11.7 mEq/L (5.0-15.0); Bilirubin Direct 0.4 mg/dL (0-0.2); Bilirubin Indirect, Calculated 1.2 mg/dL (0.2-0.8); Bilirubin Total 1.6 mg/dL (0.2-1.0); Globulin 3.9 g/dL (2.3-3.5); Potassium 2.7 mEq/L (3.5-5.1); Protein, Total 6.8 g/dL (6.4-8.2)
[2023-08-23 06:38] LABS: Troponin High Sensitivity 125.4 pg/mL (<58.9)
--- NOTE | 2023-08-23 07:00 | RAD REPORT ---
EXAM DESCRIPTION: CT - Neck Angio - 08/23/2023 6:34 am CLINICAL HISTORY: NUMBNESS COMPARISON: No comparisons TECHNIQUE: CT angiography of the neck vessels was performed with maximum intensity reformatted image s. CAROTID STENOSIS REFERENCE USING NASCET CRITERIA: Mild - <50% stenosis. Moderate - 50-69% stenosis. Severe - 70-94% stenosis. Near occlusion - 95-99% stenosis. Occluded - 100% stenosis. All CT scans are performed using dose optimization technique as appropriate and may include automated exposure control or mA/KV adjustment according to patient size. FINDINGS: A left aortic arch is identified with normal three vessel configuration of the great vesse ls. No significant flow abnormality is seen of the common carotid bilaterally. No significant stenosis is identified involving the cervical segments of both internal carotid arteri es. Normal flow is seen within both vertebral arteries. Suboptimal opacification and streak artifact sign ificantly limits evaluation. IMPRESSION: No significant flow abnormality of the neck vessels is identified. Poorly evaluated vert ebral arteries due to suboptimal opacification and streak artifact.
--- NOTE | 2023-08-23 07:03 | RAD REPORT ---
EXAM DESCRIPTION: CT - Head angio - 08/23/2023 6:34 am CLINICAL HISTORY: STROKE ALERT COMPARISON: Ct Stroke Brain Wo Cont dated 08/23/2023 TECHNIQUE: CT angiography of the head was performed with maximum intensity reformatted images. 3D ma ximum intensity pixel (MIP) reconstructions were created All CT scans are performed using dose optimization technique as appropriate and may include automated exposure control or mA/KV adjustment according to patient size. FINDINGS: Anterior circulation: Right M1 MCA occlusion. No hemodynamically significant stenosis. No arteriovenous malformation identi fied. Posterior circulation: No aneurysm or large vessel occlusion. No hemodynamically significant stenosis. No arteriovenous malf ormation identified. IMPRESSION: Right M1 MCA occlusion. Discussed with Dr. Maharaj by Dr. Joe at 0656 on 08/23/23
--- NOTE | 2023-08-23 07:04 | RAD REPORT ---
EXAM DESCRIPTION: RAD - Chest Single View - 08/23/2023 6:42 am CLINICAL HISTORY: COPD COMPARISON: Chest Single View dated 04/25/2021 FINDINGS: Lines: None. Lungs: Diffuse prominence of the pulmonary interstitium. Pleural: No significant pleural effusions or pneumothorax. Cardiac: Enlarged cardiopericardial silhouette. Mediastinum: Within normal limits. Bones: No acute fractures. Other: None IMPRESSION: Pulmonary vascular congestion which may be chronic. Cardiomegaly.
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
[2023-08-23 08:32] VITALS: O2SAT 100
[2023-08-23 09:07] VITALS: BP 144/106; TEMP 99.3
--- NOTE | 2023-08-23 10:17 | RAD REPORT ---
EXAM DESCRIPTION: CT - Ct Stroke Brain Wo Cont - 08/23/2023 7:14 am ADDENDUM #1 Critical findings were discussed with and acknowledged by Dr. Arturo Maharaj MD on 08/23/2023 6: 00 AM CDT. Electronically signed by: Nehemiah Ibarra MD 08/23/2023 06:22 AM CDT End of Addendum CLINICAL HISTORY: LEFT SIDED WEAKNESS COMPARISON: None. TECHNIQUE: CT HEAD WITHOUT IV CONTRAST on 08/23/2023 5:40 AM CDT This exam was performed according to our departmental dose-optimization program, which includes autom ated exposure control, adjustment of the mA and/or kV according to patient size and/or use of iterati ve reconstruction technique. FINDINGS: There is no acute hemorrhage, mass effect or midline shift. Youngblood-white differentiation is preserved. There is no hydrocephalus. There is no significant volume loss for age. The calvarium is intact. Orbits and globes are unremarkable. The paranasal sinuses are clear. Mastoid air cells are clear. IMPRESSION: No acute intracranial findings. Electronically signed by: Nehemiah Ibarra MD 08/23/2023 05:54 AM CDT Due to temporary technical issues with the PACS/Fluency reporting system, reports are being signed by the in house radiologist without review as a courtesy to ensure prompt reporting. The interpreting r adiologist is fully responsible for the content of the report.
--- NOTE | 2023-08-24 14:11 | EKG ---
Test Date: 2023-08-23 Test Time: 04:55:48 Call Center Support Representative: CAROLIN MEASUREMENT RESULTS: Intervals: Rate: 98 NC: 170 QRSD: 116 QT: 384 QTc: 490 [place]: P: 80 NC: 170 QRS: 102 T: -66 INTERPRETIVE STATEMENTS: Sinus rhythm Incomplete left bundle branch block ST & T wave abnormality, consider inferolateral ischemia Prolonged QT Abnormal ECG Compared to ECG 04/25/2021 05:45:14 Left bundle-branch block now present ST (T wave) deviation now present Possible ischemia now present Prolonged QT interval now present Myocardial infarct finding no longer present Electronically Signed On 08-24-23 14:06:10 CDT by Kevin rAmstrong
== END ==
LOC: ER 05:34
DX: I67.81 Acute cerebrovascular insufficiency (principal); R29.711 NIHSS score 11; I10 Essential (primary) hypertension; I50.9 Heart failure, unspecified
CPT/HCPCS: 36415; 70450; 70496; 70498; 71045; 80048; 80076; 82947; 84484; 85025; 85610; 85730; 92977; 93005; 96365; 96367; 96375; 99291; J0360; J3101; J3480; J7030; Q9967

== ENCOUNTER 2024-03-24 22:43 | Emergency (ER) | payer OTHER ==
[2024-03-24] MEDS ORDERED: LIDOCAINE 2% W/EPI 1:200,000 MPF 20 ML VIAL IM ONE (23:47)
[2024-03-24] MEDS ORDERED: MORPHINE 4 MG/ML SYR ONE (23:49)
[2024-03-24] MEDS ORDERED: CLINDAMYCIN 900MG/D5W 900 MG/50 ML IVPB IV ONE (23:49)
[2024-03-24 23:52] LABS: Absolute Eosinophils 0.2 K/uL (0-0.5); Absolute Lymphocytes (CBC) 2.2 K/uL (0.7-4.9); Absolute Monocytes 0.6 K/uL (0.1-1.3); Absolute Neutrophil 3.3 K/uL (1.8-8.0); Basophils % 0.8 % (0-1.3); Eosinophils % 3.7 % (0-4.4); Hematocrit 32.8 % (36.0-45.0); Hemoglobin 11.2 g/dL (12.0-15.0); Lymphocytes % 34.6 % (15.3-44.8); MCH 32.2 pg (27.0-35.0); MCHC 34.2 g/dL (32.0-36.0); MCV 94.1 fL (80-100); MPV 8.4 fL (7.6-11.3); Monocytes % 9.6 % (3.3-12.3); Neutrophils % 51.3 % (41.7-73.7); Nucleated Red Blood Cells % 0.2 % (0-0); Platelets 240 thou/uL (152-406); RBC Red Blood Cell Count 3.49 M/uL (3.86-4.86); Red Cell Distribution Width 13.3 % (12.1-15.2)
[2024-03-25 00:02] LABS: Anion Gap 8.6 mEq/L (5.0-15.0); Potassium 3.6 mEq/L (3.5-5.1)
[2024-03-25] MEDS ORDERED: MORPHINE 4 MG/ML SYR ONE (00:12)
--- NOTE | 2024-03-25 00:31 | ER ---
Nurse's Notes [facility] Name: Tiffanie Pedroza Age: 33 yrs Sex: Female : 1990 Arrival Date: 03/24/2024 Time: 22:43 Bed 20 Private MD: Diagnosis: Cutaneous abscess of back [any part, except buttock] Presentation: 03/24 22:53 Chief complaint: Patient states: ABSCESS ON THE LOW BACK FOR THE PAST FOUR DAYS. ha1 22:53 Coronavirus screen: Vaccine status: Patient reports being unvaccinated. Ebola Screen: ha1 No symptoms or risks identified at this time. Initial Sepsis Screen: Does the patient meet any 2 criteria? No. Patient's initial sepsis screen is negative. Does the patient have a suspected source of infection? No. Patient's initial sepsis screen is negative. Risk Assessment: Do you want to hurt yourself or someone else? Patient reports no desire to harm self or others. Onset of symptoms was March 24, 2024. 22:53 Method Of Arrival: Ambulatory ha1 22:53 Acuity: INO 3 ha1 Triage Assessment: 22:53 General: Appears comfortable, Behavior is calm, cooperative. Pain: Complains of pain in ha1 back Pain does not radiate. Pain currently is 9 out of 10 on a pain scale. Neuro: Level of Consciousness is awake, alert, obeys commands, Oriented to person, place, time, situation. Cardiovascular: Patient's skin is warm and dry. Respiratory: Airway is patent Respiratory effort is even, unlabored, Respiratory pattern is regular, symmetrical. 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 - Infectious Disease History:: Denies. - Social history:: Smoking status: Patient denies any tobacco usage or history of. Screenin:21 [facility] ED Fall Risk Assessment (Adult) History of falling in the last 3 months, ha1 including since admission No falls in past 3 months (0 pts) Confusion or Disorientation No (0 pts) Intoxicated or Sedated No (0 pts) Impaired Gait No (0 pts) Mobility Assist Device Used No (0 pt) Altered Elimination No (0 pt) Score/Fall Risk Level 0 - 2 = Low Risk Oriented to surroundings, Maintained a safe environment, Educated pt \T\ family on fall prevention, incl call for assistance when getting out of bed. Abuse screen: Denies threats or abuse. Denies injuries from another. Nutritional screening: No deficits noted. Tuberculosis screening: No symptoms or risk factors identified. Assessment: 23:30 General: Appears in no apparent distress. uncomfortable, Behavior is calm, cooperative. kj2 Pain: Complains of pain in back Pain currently is 8 out of 10 on a pain scale. Neuro: Level of Consciousness is awake, alert, obeys commands, Oriented to person, place, time, situation. Cardiovascular: Patient's skin is warm and dry. Respiratory: Airway is patent Respiratory effort is even, unlabored. GI: No signs and/or symptoms were reported involving the gastrointestinal system. : No signs and/or symptoms were reported regarding the genitourinary system. Vital Signs: 22:53 BP 127 / 84; Pulse 71; Resp 17 S; Temp 98; Pulse Ox 100% on R/A; Weight 113.4 kg; ha1 Height 5 ft. 5 in. ; Pain 9/10; 23:30 BP 127 / 84; Pulse 73; Resp 18; Pulse Ox 100% on R/A; kj2 03/25 00:46 BP 128 / 82; Pulse 76; Resp 18; Temp 98; Pulse Ox 100% on R/A; kj2 03/24 22:53 Body Mass Index 41.60 (113.40 kg, 165.1 cm) ha1 03/24 22:53 Pain Scale: Adult 1 ED Course: 03/24 22:45 Patient arrived in ED. jj6 22:49 Victor Hugo Valdez PA is PHCP. cp 22:49 Markel Thompson MD is Attending Physician. cp 23:20 Triage completed. ha1 23:29 Christina Owens, TIKA is Primary Nurse. kj2 23:30 Inserted saline lock: 20 gauge in left antecubital area, using aseptic technique. Blood kj2 collected. Flushed with 10 mL NS. 23:30 Bed in low position. Call light in reach. Side rails up X 1. Provided Education on: kj2 call light. 03/25 00:07 Assist provider with I \T\ D: Set up I\T\D tray. kj 2 00:07 Arm band placed on Patient placed in an exam room, on a stretcher. kj2 00:30 Osmar Morrow MD is Referral Physician. cp 00:47 IV discontinued, intact, bleeding controlled, No redness/swelling at site. Pressure kj2 dressing applied. Administered Medications: 00:00 Drug: morphine IVP or IV 4 mg IVP once over 4 mins Route: IVP; Infused Over: 4 mins; kj2 Site: left antecubital; 00:12 Follow up: Response: Pain is unchanged, physician notified kj2 00:00 Drug: Clindamycin IVPB 900 mg IVPB once over 30 mins; (mix in 50 mL) Route: IVPB; kj2 Infused Over: 30 mins; Site: left antecubital; 00:30 Follow up: IV Status: Completed infusion; IV Intake: 50ml kj2 00:17 Drug: morphine IVP or IV 4 mg IVP once over 4 mins Route: IVP; Infused Over: 4 mins; kj2 Site: left antecubital; 00:45 Follow up: Response: No adverse reaction; Pain is decreased kj2 Medication: 00:06 VIS not applicable for this client. kj2 Intake: 00:30 IV: 50ml; Total: 50ml. kj2 Outcome: 00:31 Discharge ordered by . cp 00:47 Discharged to home ambulatory, kj2 00:47 Condition: stable 00:47 Discharge instructions given to patient, Instructed on discharge instructions, follow up and referral plans. medication usage, Demonstrated understanding of instructions, follow-up care, medications, Prescriptions given X 2, 01:08 Patient left the ED. kj2 Signatures: Victor Hugo Valdez PA PA cp Mitali Puri jj6 Diann Mcdonald, RN RN ha1 Christina Owens RN RN kj2
--- NOTE | 2024-03-25 00:32 | EDPHYS ---
Physician Documentation [facility] Name: Tiffanie Pedroza Age: 33 yrs Sex: Female : 1990 Arrival Date: 03/24/2024 Time: 22:43 Bed 20 Private MD: ED Physician Markel Thompson HPI: 03/24 23:05 This 33 yrs old Black Female presents to ER via Unassigned with complaints of Abscess, cp Low Back Pain. 23:05 The patient presents with an abscess of the back. cp 23:05 Description: erythematous, fluctuant. cp 23:05 Onset: The symptoms/episode began/occurred 4 day(s) ago. cp 23:05 Associated signs and symptoms: Pertinent negatives: discharge, drainage, fever. cp Severity of symptoms: in the emergency department the symptoms are unchanged, despite home interventions. 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 - Infectious Disease History:: Denies. - Social history:: Smoking status: Patient denies any tobacco usage or history of. ROS: 23:10 Constitutional: Negative for body aches, chills, fever, poor PO intake, cp 23:10 Constitutional: HX per HPI cp 23:10 Skin: Positive for abscess, of the back, 23:10 All other systems are negative, Exam: 23:10 Constitutional: The patient appears in no acute distress, alert, awake, non-toxic, well cp developed, well nourished, obese, uncomfortable, 23:10 Head/Face: Normocephalic, atraumatic. cp 23:10 Eyes: Periorbital structures: appear normal, Conjunctiva: normal, no exudate, no injection, Sclera: no appreciated abnormality, Lids and lashes: appear normal, bilaterally, 23:10 ENT: External ear(s): are unremarkable, Nose: is normal, Mouth: Lips: moist, Oral mucosa: pink and intact, moist, Posterior pharynx: Airway: no evidence of obstruction, patent, 23:10 Chest/axilla: Inspection: normal, 23:10 Cardiovascular: Rate: normal, Rhythm: regular, 23:10 Respiratory: the patient does not display signs of respiratory distress, Respirations: normal, no use of accessory muscles, no retractions, labored breathing, is not present, Breath sounds: are clear throughout, no decreased breath sounds, no stridor, no wheezing, 23:10 Abdomen/GI: Exam negative for discomfort, distension, guarding, Inspection: abdomen appears normal, 23:10 Back: pain, that is moderate, of the right mid back, fluctuant, tender skin abscess noted with erythema, mild swelling, 23:10 Neuro: Orientation: to person, place \T\ time. Mentation: is normal, Motor: moves all fours, strength is normal, Sensation: is normal, Vital Signs: 22:53 BP 127 / 84; Pulse 71; Resp 17 S; Temp 98; Pulse Ox 100% on R/A; Weight 113.4 kg; ha1 Height 5 ft. 5 in. ; Pain 9/10; 23:30 BP 127 / 84; Pulse 73; Resp 18; Pulse Ox 100% on R/A; kj2 03/25 00:46 BP 128 / 82; Pulse 76; Resp 18; Temp 98; Pulse Ox 100% on R/A; kj2 03/24 22:53 Body Mass Index 41.60 (113.40 kg, 165.1 cm) 1 03/24 22:53 Pain Scale: Adult ha1 Procedures: 00:28 I \T\ D: Incision and drainage was performed for an abscess of the right flank Prepped with Betadine, Anesthetized with ml's 2% Lidocaine with epinephrine. 6 ml's 2% Lidocaine with epinephrine. Incised with #11 blade. Drained moderate amount purulent fluid. bloody fluid. Packed with iodoform gauze, Dressing: sterile 4x4 gauze, the patient tolerated the procedure well. MDM: 03/24 22:55 Medical Screening Exam initiated 23:50 Differential diagnosis: abscess, cellulitis, sepsis, epidermal cyst. 03/25 00:30 Data reviewed: vital signs, nurses notes, lab test result(s), and as a result, I will cp discharge patient. 00:30 I considered the following discharge prescriptions or medication management in the emergency department Medications were administered in the Emergency Department. See MAR. Care significantly affected by the following chronic conditions: Hypertension, Obesity. Counseling: I had a detailed discussion with the patient and/or guardian regarding the historical points, exam findings, and any diagnostic results supporting the discharge/admit diagnosis, lab results, the need for outpatient follow up, a general surgeon, to return to the emergency department if symptoms worsen or persist or if there are any questions or concerns that arise at home. Response to treatment: the patient's symptoms have markedly improved after treatment, and as a result, I will discharge patient. 03/24 23:08 Order name: CBC with Diff; Complete Time: 00:09 cp 03/25 00:09 Interpretation: Normal except: RBC 3.49; HGB 11.2; HCT 32.8. cp 03/24 23:08 Order name: BMP; Complete Time: 00:09 cp 03/25 00:09 Interpretation: Normal except: CL 110; CRE 1.05; GFR 73. cp 03/24 23:08 Order name: I\T\D Setup; Complete Time: 00:08 cp 03/24 23:08 Order name: IV; Complete Time: 23:58 cp Administered Medications: 00:00 Drug: morphine IVP or IV 4 mg IVP once over 4 mins Route: IVP; Infused Over: 4 mins; kj2 Site: left antecubital; 00:12 Follow up: Response: Pain is unchanged, physician notified kj2 00:00 Drug: Clindamycin IVPB 900 mg IVPB once over 30 mins; (mix in 50 mL) Route: IVPB; kj2 Infused Over: 30 mins; Site: left antecubital; 00:30 Follow up: IV Status: Completed infusion; IV Intake: 50ml kj2 00:17 Drug: morphine IVP or IV 4 mg IVP once over 4 mins Route: IVP; Infused Over: 4 mins; kj2 Site: left antecubital; 00:45 Follow up: Response: No adverse reaction; Pain is decreased kj2 Disposition: 20:29 Co-signature as Attending Physician, Markel Thompson MD I agree with the assessment sp4 and plan of care. I reviewed the patient's care provided by Advanced Practice Provider \T\ agree w/ the diagnosis \T\ care plan. I personally saw the pt \T\ performed a substantive portion of the visit, incldng all aspects of the (History/Exam/Medical Decision Making). Disposition Summary: 03/25/24 00:31 Discharge Ordered Notes: Location: Home cp Problem: new cp Symptoms: have improved cp Condition: Stable cp Diagnosis - Cutaneous abscess of back [any part, except buttock] cp Followup: cp - With: Osmar Morrow MD - When: 2 - 3 days - Reason: Wound Recheck Discharge Instructions: - Discharge Summary Sheet cp - Skin Abscess cp - Incision and Drainage cp - Incision and Drainage, Care After cp Forms: - Medication Reconciliation Form cp - Antibiotic Education cp - Prescription Opioid Use cp - Patient Portal Instructions cp - Leadership Thank You Letter cp Prescriptions: - Clindamycin HCl 300 mg Oral Capsule - take 1 capsule ORAL route every 6 hours for 10 days; 40 capsule; Refills: 0, cp Product Selection Permitted - Tramadol 50 mg Oral Tablet - take 1 tablet ORAL route every 8 hours as needed; 12 tablet; Refills: 0, cp Product Selection Permitted Signatures: Dispatcher [employer] EDMS Victor Hugo Valdez PA PA cp Diann Mcdonald, RN RN ha1 Markel Thompson MD MD sp4 Christina Owens RN RN kj2
[2024-03-25 06:41] VITALS: TEMP 98; O2SAT 100
[2024-03-25 06:53] VITALS: BP 128/82
== END 2024-03-25 01:08 | disposition home or self-care (01) ==
LOC: ER 22:43
PROC: 0H96XZZ Drainage of Back Skin, External Approach (ICD-10-PCS; principal; 2024-03-25)
DX: L02.212 Cutaneous abscess of back [any part, except buttock and flank] (principal)
CPT/HCPCS: 36415; 80048; 85025; 96365; 96375; 99284

== ENCOUNTER 2024-07-17 10:17 | Emergency (ER) | payer OTHER ==
--- NOTE | 2024-07-17 11:18 | RAD REPORT ---
EXAMINATION: TWO VIEW CHEST XR CLINICAL INDICATION: Congestion;Cough TECHNIQUE: 2 views of the chest was performed. COMPARISON: 08/23/2023 FINDINGS: The lungs are well inflated and clear. Cardiomegaly. No displaced fractures evident. IMPRESSION: Cardiomegaly.
[2024-07-17 12:04] LABS: SARS-CoV-2 Antigen CONTROL BLUE LINE VIS/BG OK; SARS-CoV-2 Antigen Rapid Res Negative (Negative)
--- NOTE | 2024-07-17 12:07 | ER ---
Nurse's Notes [facility] Name: Tiffanie Pedroza Age: 33 yrs Sex: Female : 1990 Arrival Date: 07/17/2024 Time: 10:17 Bed 15 Private MD: Diagnosis: Acute bronchitis, unspecified Presentation: 07/17 10:23 Chief complaint: Patient states: symptoms started last Wednesday , is having iw congestion, sneezing, headache chills , cough. Coronavirus screen: Client presents with at least one sign or symptom that may indicate coronavirus-19. Ebola Screen: No symptoms or risks identified at this time. Initial Sepsis Screen: Does the patient meet any 2 criteria? No. Patient's initial sepsis screen is negative. Does the patient have a suspected source of infection? No. Patient's initial sepsis screen is negative. Risk Assessment: Do you want to hurt yourself or someone else? Patient reports no desire to harm self or others. 10:23 Method Of Arrival: Ambulatory iw 10:23 Acuity: INO 4 iw Historical: - Allergies: 10:24 No Known Allergies; iw - PMHx: 10:24 Congestive heart failure; Hypertensive disorder; stroke (August 2023); iw - PSHx: 10:24 section; iw - Immunization history:: Adult Immunizations unknown. - Infectious Disease History:: Denies. - Social history:: Smoking status: Patient denies any tobacco usage or history of. Screenin:59 [facility] ED Fall Risk Assessment (Adult) History of falling in the last 3 months, ko1 including since admission No falls in past 3 months (0 pts) Confusion or Disorientation No (0 pts) Intoxicated or Sedated No (0 pts) Impaired Gait No (0 pts) Mobility Assist Device Used No (0 pt) Altered Elimination No (0 pt) Score/Fall Risk Level 0 - 2 = Low Risk Oriented to surroundings, Maintained a safe environment, Educated pt \T\ family on fall prevention, incl call for assistance when getting out of bed, Assessed \T\ reinforced patient's understanding of fall precautions, Hourly rounding (assess needs \T\ fall precautionary measures) done. Abuse screen: Denies threats or abuse. Denies injuries from another. Nutritional screening: No deficits noted. Tuberculosis screening: No symptoms or risk factors identified. Assessment: 11:59 General: Appears in no apparent distress. Behavior is calm, cooperative, appropriate ko1 for age. Pain: Denies pain. Neuro: No deficits noted. Cardiovascular: No deficits noted. Respiratory: Reports cough that is productive. GI: No deficits noted. No signs and/or symptoms were reported involving the gastrointestinal system. : No deficits noted. No signs and/or symptoms were reported regarding the genitourinary system. EENT: Reports nasal congestion. Derm: No deficits noted. No signs and/or symptoms reported regarding the dermatologic system. Musculoskeletal: No deficits noted. No signs and/or symptoms reported regarding the musculoskeletal system. Vital Signs: 10:25 BP 134 / 97; Pulse 83; Resp 16; Temp 98.3(O); Pulse Ox 98% on R/A; Weight 113.4 kg; iw Height 5 ft. 5 in. ; 12:07 BP 132 / 84; Pulse 78; Resp 15; Pulse Ox 99% ; ko1 10:25 Body Mass Index 41.60 (113.40 kg, 165.1 cm) iw ED Course: 10:19 Patient arrived in ED. mr 10:20 Gracia Oconnor PA-C is PHCP. sb4 10:20 Greyson Fay MD is Attending Physician. sb4 10:24 Triage completed. iw 10:25 Arm band placed on. iw 10:32 Anna Quevedo, RN is Primary Nurse. ko1 10:52 Chest Pa And Lat (2 Views) XRAY In Process Unspecified. EDMS 11:59 Patient has correct armband on for positive identification. Bed in low position. Call ko1 light in reach. Side rails up X 1. Provided Education on: tests. Pulse ox on. NIBP on. Door closed. Noise minimized. Lights dimmed. Warm blanket given. Pillow given. 11:59 No provider procedures requiring assistance completed. ko1 12:16 Patient did not have IV access during this emergency room visit. ko1 Administered Medications: No medications were administered Medication: 11:59 VIS not applicable for this client. ko1 Outcome: 12:06 Discharge ordered by . sb4 12:16 Discharged to home ambulatory, ko1 12:16 Condition: stable 12:16 Discharge instructions given to patient, Instructed on discharge instructions, follow up and referral plans. medication usage, Demonstrated understanding of instructions, follow-up care, medications, Prescriptions given X 3, 12:18 Patient left the ED. ko1 Signatures: Dispatcher [employer] EDMS AloKathy, Reg Reg mr Lizzette Stark RN RN iw Anna Quevedo RN RN ko1 Gracia Oconnor, SANTO PAVinicio sb4 Corrections: (The following items were deleted from the chart) 10:30 10:25 BP 134 / 97; Pulse 83bpm; Resp 16bpm; Pulse Ox 98% RA; 113.4 kg; Height 5 ft. 5 iw in.; BMI: 41.6; iw
--- NOTE | 2024-07-17 12:07 | EDPHYS ---
Physician Documentation [facility] Name: Tiffanie Pedroza Age: 33 yrs Sex: Female : 1990 Arrival Date: 07/17/2024 Time: 10:17 Bed 15 Private MD: ED Physician Greyson Fay HPI: 07/17 10:29 This 33 yrs old Black Female presents to ER via Ambulatory with complaints of Flu sb4 Symptoms. 10:29 flu like symptoms x 5 days. started has nasal/sinus congestion and now has progressed sb4 into hacking cough and some sob. denies any fever, chills, nausea, vomiting. denies any sick contacts. has been taking OTC medications without significant relief in symptoms. Historical: - Allergies: 10:24 No Known Allergies; iw - PMHx: 10:24 Congestive heart failure; Hypertensive disorder; stroke (August 2023); iw - PSHx: 10:24 section; iw - Immunization history:: Adult Immunizations unknown. - Infectious Disease History:: Denies. - Social history:: Smoking status: Patient denies any tobacco usage or history of. ROS: 10:29 Constitutional: Negative for fever, chills, and weight loss, sb4 10:29 ENT: Positive for nasal discharge, sinus congestion, 10:29 Respiratory: Positive for cough, shortness of breath, 10:29 All other systems are negative, Exam: 10:29 Constitutional: This is a well developed, well nourished patient who is awake, alert, sb4 and in no acute distress. Head/Face: Normocephalic, atraumatic. Eyes: Extra-ocular motions intact. Periorbital areas with no swelling, redness, or edema. ENT: Mucous membranes moist. Cardiovascular: Regular rate and rhythm with a normal S1 and S2. Respiratory: No increased work of breathing, no retractions or nasal flaring. Abdomen/GI: Soft, non-tender, no distension. Skin: Warm, dry with normal turgor. Normal color with no rashes, no lesions, and no evidence of cellulitis. 10:29 ENT: TM's: are normal, Posterior pharynx: Airway: normal, no evidence of obstruction, Tonsils: are normal in appearance, 10:29 Respiratory: Breath sounds: are clear throughout, Vital Signs: 10:25 BP 134 / 97; Pulse 83; Resp 16; Temp 98.3(O); Pulse Ox 98% on R/A; Weight 113.4 kg; iw Height 5 ft. 5 in. ; 12:07 BP 132 / 84; Pulse 78; Resp 15; Pulse Ox 99% ; ko1 10:25 Body Mass Index 41.60 (113.40 kg, 165.1 cm) iw MDM: 10:20 Medical Screening Exam initiated sb4 12:06 Data reviewed: vital signs, nurses notes, lab test result(s), radiologic studies, and sb4 as a result, I will discharge patient. Counseling: I had a detailed discussion with the patient and/or guardian regarding the historical points, exam findings, and any diagnostic results supporting the discharge/admit diagnosis, the presence of at least one elevated blood pressure reading (>120/80) during this emergency department visit, lab results, radiology results, the need for outpatient follow up, for definitive care, to return to the emergency department if symptoms worsen or persist or if there are any questions or concerns that arise at home. 07/17 10:28 Order name: SARS RAPID; Complete Time: 12:04 sb4 07/17 10:28 Order name: Flu; Complete Time: 12:05 sb4 07/17 10:28 Order name: RSV; Complete Time: 12:04 sb4 07/17 10:28 Order name: Strep sb4 07/17 11:47 Order name: Throat Culture EDME 07/17 10:28 Order name: Chest Pa And Lat (2 Views) XRAY; Complete Time: 11:19 sb4 Administered Medications: No medications were administered Disposition: 13:29 Co-signature as Attending Physician, Greyson Fay MD I reviewed the patient's care rn provided by the Advanced Practice Provider and agree with the diagnosis and treatment plan. Disposition Summary: 07/17/24 12:06 Discharge Ordered Notes: Location: Home sb4 Problem: new sb4 Symptoms: have improved sb4 Condition: Stable sb4 Diagnosis - Acute bronchitis, unspecified sb4 Followup: sb4 - With: Emergency Department - When: As needed - Reason: Trouble breathing, Worsening of condition Discharge Instructions: - Discharge Summary Sheet sb4 - Acute Bronchitis, Adult sb4 Forms: - Patient Portal Instructions sb4 - Leadership Thank You Letter sb4 Prescriptions: - albuterol sulfate 90 mcg/actuation Inhalation HFA Aerosol Inhaler - inhale 2 inhalation INHALATION route every 4 to 6 hours as needed for shortness sb4 of breath; 1 Applicator; Refills: 0, Product Selection Permitted - Tessalon Perles 100 mg Oral Capsule - take 1 capsule ORAL route every 8 hours As needed; 15 capsule; Refills: 0, sb4 Product Selection Permitted - Prednisone 20 mg Oral Tablet - take 1 tablet ORAL route every 12 hours for 5 days; 10 tablet; Refills: 0, sb4 Product Selection Permitted Signatures: Dispatcher [employer] Lizzette Sin, RN Greyson Lopez MD MD rn Oliver, Kathy, RN RN ko1 Brown, Sophia, PAVinicio PAVinicio sb4
[2024-07-17 12:22] VITALS: TEMP 98.3
[2024-07-17 12:23] VITALS: BP 132/84; O2SAT 99
== END 2024-07-17 12:18 | disposition home or self-care (01) ==
LOC: ER 10:17
DX: J20.9 Acute bronchitis, unspecified (principal); Z11.52 Encounter for screening for COVID-19
CPT/HCPCS: 36415; 71046; 87070; 87081; 87804; 87807; 87811; 99283

== ENCOUNTER 2024-08-11 11:52 | Observation (INO) | payer OTHER ==
[2024-08-11] MEDS ORDERED: FAMOTIDINE 20 MG/2 ML VIAL IV ONE (13:09)
[2024-08-11] MEDS ORDERED: NA CHLORIDE 0.9% 1,000 ML ONE (13:09)
[2024-08-11] MEDS ORDERED: ASPIRIN 81 MG CHEWABLE TABLET ONE (13:09)
--- NOTE | 2024-08-11 13:09 | RAD REPORT ---
EXAM: Chest Single View HISTORY: 33 years Female CHEST PAIN COMPARISON: 07/17/2024 FINDINGS: LUNGS/PLEURA: Hazy opacities in the lungs bilaterally likely due to underpenetration and overlying so ft tissues. The left lung base is not well visualized. CARDIAC/MEDIASTINUM: Stable enlargement. UPPER ABDOMEN: No significant abnormality. BONES: No acute abnormality. LINES/TUBES/OTHER: N/A IMPRESSION: No definite evidence of acute cardiopulmonary disease. The lung bases, particularly left lung base, h as opacities that may be due to underpenetration and overlying soft tissues. Consider a dedicated PA and lateral to better assess when the patient's condition permits.
[2024-08-11 13:16] LABS: Specific Gravity 1.022 (1.005-1.030)
[2024-08-11 13:18] LABS: Absolute Eosinophils 0.1 K/uL (0-0.5); Absolute Lymphocytes (CBC) 1.9 K/uL (0.7-4.9); Absolute Monocytes 0.4 K/uL (0.1-1.3); Absolute Neutrophil 1.6 K/uL (1.8-8.0); Eosinophils % 2.3 % (0-4.4); Lymphocytes % 48.2 % (15.3-44.8); MCH 31.7 pg (27.0-35.0); MCHC 34.1 g/dL (32.0-36.0); MCV 92.8 fL (80-100); MPV 8.6 fL (7.6-11.3); Monocytes % 9.1 % (3.3-12.3); Neutrophils % 39.4 % (41.7-73.7); Nucleated Red Blood Cells % 0.2 % (0-0); Platelets 214 thou/uL (152-406); RBC Red Blood Cell Count 3.78 M/uL (3.86-4.86)
[2024-08-11 13:19] LABS: Specific Gravity 1.022 (1.005-1.030); Urine Bacteria None Seen /HPF (<20); Urine Bilirubin NEGATIVE (Negative); Urine Blood 1+ (Negative); Urine Clarity Extremely Turbid (Clear); Urine Color Yellow (Yellow); Urine Culture Reflex Order NOT NEEDED; Urine Glucose NEGATIVE (Negative); Urine Ketones NEGATIVE (Negative); Urine Microscopic Reflex YN ORDER UMIC; Urine Mucus Slight /HPF (None Seen); Urine Nitrite NEGATIVE (Negative); Urine Protein TRACE (Negative); Urine RBC <5 /HPF (None Seen); Urine Urobilinogen 1+ (Normal); Urine WBC <5 /HPF (<5)
[2024-08-11 13:38] LABS: Albumin 3.2 g/dL (3.4-5.0); Albumin/Globulin Ratio 0.9 (1.1-1.8); Anion Gap 7.9 mEq/L (5.0-15.0); Bilirubin Direct 0.3 mg/dL (0-0.2); Bilirubin Indirect, Calculated 0.8 mg/dL (0.2-0.8); Bilirubin Total 1.1 mg/dL (0.2-1.0); Globulin 3.6 g/dL (2.3-3.5); Magnesium 1.7 mg/dL (1.6-2.4); Potassium 2.9 mEq/L (3.5-5.1); Protein, Total 6.8 g/dL (6.4-8.2)
[2024-08-11 13:40] LABS: Troponin High Sensitivity 71.1 pg/mL (<58.9)
[2024-08-11 13:46] LABS: PT Prothrombin Time 15.5 SECONDS (10.0-13.0); Protime INR 1.38
[2024-08-11 13:47] LABS: D-Dimer < 0.215 FEUug/mL (0-0.500)
--- NOTE | 2024-08-11 13:47 | ER ---
Nurse's Notes [facility] Name: Tiffanie Pedroza Age: 33 yrs Sex: Female : 1990 Arrival Date: 08/11/2024 Time: 11:52 Bed 18 Private MD: Diagnosis: Chest pain, unspecified;Chest pain on breathing;Hypokalemia;Non ST elevation [place];Cardiomegaly;Essential (primary) hypertension;Pleural effusion, not elsewhere classified;Chronic combined systolic (congestive) and diastolic (congestive) heart failure Presentation: 08/11 12:11 Chief complaint: Patient states: she has been having chest pain for approx one hour. ap3 patient denies any shortness of breath, nausea or vomiting. Coronavirus screen: At this time, the client does not indicate any symptoms associated with coronavirus-19. Ebola Screen: No symptoms or risks identified at this time. Initial Sepsis Screen: Does the patient meet any 2 criteria? No. Patient's initial sepsis screen is negative. Does the patient have a suspected source of infection? No. Patient's initial sepsis screen is negative. Risk Assessment: Do you want to hurt yourself or someone else? Patient reports no desire to harm self or others. Onset of symptoms was August 11, 2024 at 11:00. 12:11 Method Of Arrival: Ambulatory ap3 12:11 Acuity: INO 2 ap3 Triage Assessment: 12:13 General: Appears in no apparent distress. Behavior is calm, cooperative, appropriate ap3 for age. Pain: Complains of pain in chest Pain currently is 6 out of 10 on a pain scale. Neuro: Level of Consciousness is awake, alert, obeys commands, Oriented to person, place, time, situation, Appropriate for age. Cardiovascular: Reports chest pain, Patient's skin is warm and dry. Respiratory: Airway is patent Respiratory effort is even, unlabored, Respiratory pattern is regular, symmetrical. 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 - Infectious Disease History:: Denies. - Social history:: Smoking status: Patient/guardian denies using tobacco. - Family history:: not pertinent. - Hospitalizations: : No recent hospitalization is reported. Screenin:13 [facility] ED Fall Risk Assessment (Adult) History of falling in the last 3 months, ap3 including since admission No falls in past 3 months (0 pts) Confusion or Disorientation No (0 pts) Intoxicated or Sedated No (0 pts) Impaired Gait No (0 pts) Mobility Assist Device Used No (0 pt) Altered Elimination No (0 pt) Score/Fall Risk Level 0 - 2 = Low Risk Oriented to surroundings, Maintained a safe environment, Educated pt \T\ family on fall prevention, incl call for assistance when getting out of bed, Assessed \T\ reinforced patient's understanding of fall precautions, Hourly rounding (assess needs \T\ fall precautionary measures) done, Used ambulatory aids as needed (educated on \T\ assisted with). Abuse screen: Denies threats or abuse. Nutritional screening: No deficits noted. Tuberculosis screening: No symptoms or risk factors identified. Assessment: 13:18 General: Appears uncomfortable, obese, well groomed, well developed, Behavior is calm, me1 cooperative, appropriate for age, Reports she has been having chest pain for approx one hour. patient denies any shortness of breath, nausea or vomiting. Pain: Complains of pain in chest Pain radiates to left arm Pain currently is 7 out of 10 on a pain scale. Quality of pain is described as crampy, Pain began suddenly, 1 hour ago. Is continuous. Neuro: Level of Consciousness is awake, alert, obeys commands, Oriented to person, place, time, situation, Appropriate for age. Cardiovascular: Patient's skin is warm and dry. Cardiovascular: Reports chest pain, Denies diaphoresis, nausea, shortness of breath. Respiratory: Airway is patent Respiratory effort is even, unlabored, Respiratory pattern is regular, symmetrical. GI: No signs and/or symptoms were reported involving the gastrointestinal system. : No signs and/or symptoms were reported regarding the genitourinary system. EENT: No signs and/or symptoms were reported regarding the EENT system. Derm: Skin is intact, is healthy with good turgor, Skin is pink, warm \T\ dry. Musculoskeletal: No signs and/or symptoms reported regarding the musculoskeletal system. 18:56 General: Admission to 4th floor delayed to get patient's pain under control and for CT me1 r/o PE that was ordered by Amanda Fisher NP. Vital Signs: 12:11 BP 140 / 99; Pulse 68; Resp 18; Temp 98.7; Pulse Ox 100% ; Weight 108.86 kg; Height 5 ap3 ft. 5 in. ; Pain 6/10; 13:30 BP 156 / 107; Pulse 70; Resp 16; Pulse Ox 98% ; me1 14:00 BP 153 / 117; Pulse 72; Resp 20; Pulse Ox 99% ; me1 15:00 BP 160 / 116; Pulse 75; Resp 19; Pulse Ox 99% ; me1 15:11 Pain 2/10; me1 16:00 BP 137 / 100; Pulse 66; Resp 17; Pulse Ox 98% ; me1 17:00 BP 147 / 109; Pulse 72; Resp 16; Pulse Ox 98% ; me1 18:02 BP 142 / 109; Pulse 74; Resp 19; Temp 98.4; Pulse Ox 97% ; me1 12:11 Body Mass Index 39.94 (108.86 kg, 165.1 cm) ap3 12:11 Pain Scale: Adult ap3 15:11 Pain Scale: Adult me1 ED Course: 11:54 Patient arrived in ED. mr 12:04 Victor Hugo Wang MD is Attending Physician. [place] 12:12 Triage completed. ap3 12:13 EKG done, by ED staff, reviewed by Victor Hugo Wang MD. ap3 12:14 Patient maintains SpO2 saturation greater than 95% on room air. ap3 12:14 Arm band placed on right wrist. ap3 12:53 Jennifer Sandoval, TIKA is Primary Nurse. me1 13:04 XRAY Chest (1 view) In Process Unspecified. EDMS 13:07 Initial lab(s) drawn, by nv, sent to lab. Urine collected: clean catch specimen, me1 cloudy. Inserted saline lock: 22 gauge in right antecubital area, using aseptic technique. 13:07 D-Dimer Sent. me1 13:07 PREGU Sent. me1 13:07 Urinalysis w/ reflexes Sent. me1 13:07 Basic Metabolic Panel Sent. me1 13:07 CBC with Diff Sent. me1 13:07 LFT's Sent. me1 13:07 Magnesium Sent. me1 13:07 NT PRO-BNP Sent. me1 13:07 PT-INR Sent. me1 13:07 Troponin HS Sent. me1 13:18 No provider procedures requiring assistance completed. me1 13:18 Patient has correct armband on for positive identification. Bed in low position. Call me1 light in reach. Side rails up X2. Provided Education on: POC. Verbalized understanding.. Client placed on continuous cardiac and pulse oximetry monitoring. NIBP monitoring applied. Pulse ox on. NIBP on. 13:41 Kevin Armstrong MD is Referral Physician. [facility] 13:43 Notified ED physician of a critical lab result(s). troponin 71.1. me1 13:44 Lynn Michelle MD is Hospitalizing Provider. [facility] 13:58 Chest Pa And Lat (2 Views) XRAY In Process Unspecified. EDMS 18:08 Patient admitted, IV remains in place. me1 Administered Medications: 13:42 Discontinued: ns 0.9% 1000 ml IV at 1000 ml once; to be given as a bolus over 60 minutescha 13:15 Drug: NS 0.9% IV 1000 ml IV at 1000 ml once; to be given as a bolus over 60 minutes me1 Route: IV; Rate: 1000 ml; Site: right antecubital; 14:57 Follow up: Response: No adverse reaction; IV Status: Order to discontinue infusion me1 13:15 Drug: Aspirin PO Chewable Tablet 81 mg PO once Route: PO; me1 13:45 Follow up: Response: No adverse reaction me1 13:15 Drug: Famotidine IVP 20 mg IVP once; dilute with 10 mL 0.9% NaCl; give over 2 minutes me1 Route: IVP; Site: right antecubital; 13:45 Follow up: Response: No adverse reaction me1 14:48 Drug: Potassium PO Effervescent Tablet 50 mEq PO once; dissolve in 4 ounces of water or me1 juice Route: PO; 17:24 Follow up: Response: No adverse reaction me1 14:48 Drug: Potassium Chloride IV 20 mEq IV at per protocol once; administer over 1-2 hours me1 Route: IV; Rate: per protocol; Site: right antecubital; 17:31 Follow up: Response: No adverse reaction; IV Status: Completed infusion me1 14:48 Drug: Ondansetron IVP 4 mg IVP once; over 2 minutes Route: IVP; Site: right antecubital;me1 15:11 Follow up: Response: No adverse reaction; Nausea is decreased me1 14:49 Drug: morphine IVP or IV 4 mg IVP once over 4 mins Route: IVP; Infused Over: 4 mins; me1 Site: right antecubital; 15:11 Follow up: Pain 2/10 Adult; Response: No adverse reaction; Pain is decreased me1 14:56 Drug: Metoprolol PO 50 mg PO once Route: PO; me1 17:23 Follow up: Response: No adverse reaction; Blood pressure is lowered me1 14:57 Drug: Nitroglycerin Transdermal Ointment 2 % 1 inches Transdermal once Route: me1 Transdermal; Site: anterior chest wall; 14:57 Drug: Furosemide IVP 40 mg IVP once; give over 2 minutes Route: IVP; Site: right me1 antecubital; 17:24 Follow up: Response: No adverse reaction me1 16:35 Drug: Potassium PO Effervescent Tablet 50 mEq PO once; dissolve in 4 ounces of water or me1 juice Route: PO; 17:24 Follow up: Response: No adverse reaction me1 Medication: 13:18 VIS not applicable for this client. me1 Outcome: 13:41 Discharge ordered by . [facility] 13:46 Decision to Hospitalize by Provider. [facility] 18:08 Admitted to Tele accompanied by tech, via wheelchair, room 413, with chart, Report me1 called to faxed, receipt confirmed with Karen 18:08 Condition: stable 18:08 Instructed on the need for admit, 19:29 Patient left the ED. me1 Signatures: Dispatcher [employer] Victor Hugo Castaneda MD MD cha Rivera, Mary, Reg Reg Bibi Mejia RN RN ap3 Jennifer Sandoval RN RN me1 Corrections: (The following items were deleted from the chart) 13:18 12:11 Chief complaint: Patient states: she has been having chest pain for approx one me1 hour. patient denies any shortness of breath, nausea or vomiting. ap3
--- NOTE | 2024-08-11 13:47 | EDPHYS ---
Physician Documentation [facility] Name: Tiffanie Pedroza Age: 33 yrs Sex: Female : 1990 Arrival Date: 08/11/2024 Time: 11:52 Bed 18 Private MD: ED Physician Victor Hugo Wang HPI: 08/11 13:16 This 33 yrs old Black Female presents to ER via Ambulatory with complaints of Chest [place] Pain, Arm Pain. 13:16 The patient or guardian reports chest pain that is located primarily in the anterior [facility] chest wall, bilaterally. The pain does not radiate. Associated signs and symptoms: Pertinent positives: pleurtic. The chest pain is described as sharp. Duration: The patient or guardian reports multiple episodes, that are intermittent. Modifying factors: The symptoms are alleviated by nothing. the symptoms are aggravated by deep breath. Severity of pain: At its worst the pain was mild in the emergency department the pain has improved mildly. The patient has experienced similar episodes in the past, a few times. 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 - Infectious Disease History:: Denies. - Social history:: Smoking status: Patient/guardian denies using tobacco. - Family history:: not pertinent. - Hospitalizations: : No recent hospitalization is reported. ROS: 13:16 Constitutional: Negative for fever, chills, and weight loss, Eyes: Negative for injury, [place]oston pain, redness, and discharge, ENT: Negative for injury, pain, and discharge, Neck: Negative for injury, pain, and swelling, Abdomen/GI: Negative for abdominal pain, nausea, vomiting, diarrhea, and constipation, Back: Negative for injury and pain, : Negative for injury, bleeding, discharge, and swelling, MS/Extremity: Negative for injury and deformity, Skin: Negative for injury, rash, and discoloration, Neuro: Negative for headache, weakness, numbness, tingling, and seizure, Psych: Negative for depression, anxiety, suicide ideation, homicidal ideation, and hallucinations, Allergy/Immunology: Negative for hives, rash, and allergies, Endocrine: Negative for neck swelling, polydipsia, polyuria, polyphagia, and marked weight changes, Hematologic/Lymphatic: Negative for swollen nodes, abnormal bleeding, and unusual bruising, 13:16 Cardiovascular: Positive for chest pain, of the chest, 13:16 Respiratory: Positive for pleurisy, 13:16 MS/extremity: Negative for acute changes, Exam: 13:16 Constitutional: This is a well developed, well nourished patient who is awake, alert, b[place] and in no acute distress. Head/Face: Normocephalic, atraumatic. Eyes: Pupils equal round and reactive to light, extra-ocular motions intact. Lids and lashes normal. Conjunctiva and sclera are non-icteric and not injected. Cornea within normal limits. Periorbital areas with no swelling, redness, or edema. ENT: Nares patent. No nasal discharge, no septal abnormalities noted. Tympanic membranes are normal and external auditory canals are clear. Oropharynx with no redness, swelling, or masses, exudates, or evidence of obstruction, uvula midline. Mucous membranes moist. Neck: Trachea midline, no thyromegaly or masses palpated, and no cervical lymphadenopathy. Supple, full range of motion without nuchal rigidity, or vertebral point tenderness. No Meningismus. Chest/axilla: Normal chest wall appearance and motion. Nontender with no deformity. No lesions are appreciated. Cardiovascular: Regular rate and rhythm with a normal S1 and S2. No gallops, murmurs, or rubs. Normal PMI, no JVD. No pulse deficits. Respiratory: Lungs have equal breath sounds bilaterally, clear to auscultation and percussion. No rales, rhonchi or wheezes noted. No increased work of breathing, no retractions or nasal flaring. Abdomen/GI: Soft, non-tender, with normal bowel sounds. No distension or tympany. No guarding or rebound. No evidence of tenderness throughout. Back: No spinal tenderness. No costovertebral tenderness. Full range of motion. Skin: Warm, dry with normal turgor. Normal color with no rashes, no lesions, and no evidence of cellulitis. MS/ Extremity: Pulses equal, no cyanosis. Neurovascular intact. Full, normal range of motion., bilateral aka Neuro: Awake and alert, GCS 15, oriented to person, place, time, and situation. Cranial nerves II-XII grossly intact. Motor strength 5/5 in all extremities. Sensory grossly intact. Cerebellar exam normal. Normal gait. Psych: Awake, alert, with orientation to person, place and time. Behavior, mood, and affect are within normal limits. 13:16 ECG was reviewed by the Attending Physician. 15:28 ECG was reviewed by the Attending Physician. [facility] Vital Signs: 12:11 BP 140 / 99; Pulse 68; Resp 18; Temp 98.7; Pulse Ox 100% ; Weight 108.86 kg; Height 5 ap3 ft. 5 in. ; Pain 6/10; 13:30 BP 156 / 107; Pulse 70; Resp 16; Pulse Ox 98% ; me1 14:00 BP 153 / 117; Pulse 72; Resp 20; Pulse Ox 99% ; me1 15:00 BP 160 / 116; Pulse 75; Resp 19; Pulse Ox 99% ; me1 15:11 Pain 2/10; me1 16:00 BP 137 / 100; Pulse 66; Resp 17; Pulse Ox 98% ; me1 17:00 BP 147 / 109; Pulse 72; Resp 16; Pulse Ox 98% ; me1 18:02 BP 142 / 109; Pulse 74; Resp 19; Temp 98.4; Pulse Ox 97% ; me1 12:11 Body Mass Index 39.94 (108.86 kg, 165.1 cm) ap3 12:11 Pain Scale: Adult ap3 15:11 Pain Scale: Adult me1 MDM: 12:04 Medical Screening Exam initiated [facility] 13:29 Differential diagnosis: abnormal EKG, acute myocardial infarction, acute pericarditis, boston anxiety, coronary artery disease chest wall pain, Cholelithiasis costochondritis, esophagitis, gastritis, herpes zoster, pancreatitis, peptic ulcer disease, pericarditis, pneumonia, pulmonary embolus, stable angina, thoracic aortic disection, unstable angina. HEART Score: History: Slightly Suspicious (0), ECG: Non specific repolarization disturbance / LBTB / PM (1), Age: < or = 45 years (0), Risk Factors: > or = 3 Risk factors for atherosclerotic disease (2), [Hypertension] [+ Family HX] [Obesity] Troponin: < or = 1 x Normal Limit (0). AKBAR Risk Score: 1 - Three or more CAD risk factors, 1- Known CAD, 1 - Recent [<24hrs] Severe Angina, TOTAL SCORE = 3. Data reviewed: vital signs, nurses notes, lab test result(s), EKG, radiologic studies, plain films. Consideration of Admission/Observation Escalation of care including admission/observation considered. I considered the following discharge prescriptions or medication management in the emergency department Medications were administered in the Emergency Department. See MAR. Independent interpretation of the following test(s) in the Emergency Department EKG: See my EKG interpretation above. Test considered but Not performed: CT: no ct chest ro pe. Historians other than the Patient: pt well informed. Care significantly affected by the following chronic conditions: Hypertension, Congestive Heart Failure, Obesity, on eliquis bid. Counseling: I had a detailed discussion with the patient and/or guardian regarding the historical points, exam findings, and any diagnostic results supporting the discharge/admit diagnosis, lab results, radiology results, the need for outpatient follow up, for definitive care, a meat boner, a family practitioner. 08/11 12:05 Order name: Basic Metabolic Panel; Complete Time: 13:41 [place] 08/11 12:05 Order name: CBC with Diff; Complete Time: 14:32 [place] 08/11 12:05 Order name: LFT's; Complete Time: 13:41 [place] 08/11 12:05 Order name: Magnesium; Complete Time: 13:41 [place] 08/11 12:05 Order name: NT PRO-BNP; Complete Time: 13:41 [place] 08/11 12:05 Order name: PT-INR; Complete Time: 14:32 [place] 08/11 12:05 Order name: Troponin HS; Complete Time: 13:41 [place] 08/11 12:05 Order name: Urinalysis w/ reflexes; Complete Time: 13:36 [place] 08/11 12:05 Order name: PREGU; Complete Time: 13:36 [place] 08/11 12:05 Order name: D-Dimer; Complete Time: 14:32 [place] 08/11 13:22 Order name: Manual Differential; Complete Time: 14:32 EDMS 08/11 18:14 Order name: Troponin High Sensitivity; Complete Time: 18:47 EDMS 08/11 12:05 Order name: XRAY Chest (1 view); Complete Time: 13:36 [facility] 08/11 13:36 Order name: Chest Pa And Lat (2 Views) XRAY; Complete Time: 14:32 [facility] 08/11 19:23 Order name: CT [facility] 08/11 15:02 Order name: CONS Physician Consult [facility] 08/11 12:05 Order name: EKG - Nurse/Tech; Complete Time: 12:10 [facility] 08/11 12:05 Order name: IV Saline Lock; Complete Time: 13:06 [facility] 08/11 12:05 Order name: Labs collected and sent; Complete Time: 13:06 [facility] 08/11 12:05 Order name: O2 Per Protocol; Complete Time: 13:06 [facility] 08/11 12:05 Order name: O2 Sat Monitoring; Complete Time: 13:06 [facility] 08/11 14:33 Order name: EKG - Nurse/Tech; Complete Time: 14:48 [facility] EC:16 Rate is 68 beats/min. Rhythm is regular. QRS [place] is Normal. [place] interval is normal. QRS [place] interval is normal. QT interval is normal. No Q waves. T waves are Normal. T waves are Inverted. No ST changes noted. Clinical impression: NSR w/ Non-specific ST/T Changes, Abnormal EKG without significant change, and No evidence of ischemia. Interpreted by me. Reviewed by me. 15:28 Rate is 77 beats/min. Rhythm is regular. QRS [place] is Normal. [place] interval is normal. QRS [place] interval is normal. QT interval is normal. No Q waves. T waves are Inverted in leads II, III, aVF, V4, V5, V6. Clinical impression: Abnormal EKG without significant change. Interpreted by me. Reviewed by me. Administered Medications: 13:42 Discontinued: ns 0.9% 1000 ml IV at 1000 ml once; to be given as a bolus over 60 minutescha 13:15 Drug: NS 0.9% IV 1000 ml IV at 1000 ml once; to be given as a bolus over 60 minutes me1 Route: IV; Rate: 1000 ml; Site: right antecubital; 14:57 Follow up: Response: No adverse reaction; IV Status: Order to discontinue infusion me1 13:15 Drug: Aspirin PO Chewable Tablet 81 mg PO once Route: PO; me1 13:45 Follow up: Response: No adverse reaction me1 13:15 Drug: Famotidine IVP 20 mg IVP once; dilute with 10 mL 0.9% NaCl; give over 2 minutes me1 Route: IVP; Site: right antecubital; 13:45 Follow up: Response: No adverse reaction me1 14:48 Drug: Potassium PO Effervescent Tablet 50 mEq PO once; dissolve in 4 ounces of water or me1 juice Route: PO; 17:24 Follow up: Response: No adverse reaction me1 14:48 Drug: Potassium Chloride IV 20 mEq IV at per protocol once; administer over 1-2 hours me1 Route: IV; Rate: per protocol; Site: right antecubital; 17:31 Follow up: Response: No adverse reaction; IV Status: Completed infusion me1 14:48 Drug: Ondansetron IVP 4 mg IVP once; over 2 minutes Route: IVP; Site: right antecubital;me1 15:11 Follow up: Response: No adverse reaction; Nausea is decreased me1 14:49 Drug: morphine IVP or IV 4 mg IVP once over 4 mins Route: IVP; Infused Over: 4 mins; me1 Site: right antecubital; 15:11 Follow up: Pain 2/10 Adult; Response: No adverse reaction; Pain is decreased me1 14:56 Drug: Metoprolol PO 50 mg PO once Route: PO; me1 17:23 Follow up: Response: No adverse reaction; Blood pressure is lowered me1 14:57 Drug: Nitroglycerin Transdermal Ointment 2 % 1 inches Transdermal once Route: me1 Transdermal; Site: anterior chest wall; 14:57 Drug: Furosemide IVP 40 mg IVP once; give over 2 minutes Route: IVP; Site: right me1 antecubital; 17:24 Follow up: Response: No adverse reaction me1 16:35 Drug: Potassium PO Effervescent Tablet 50 mEq PO once; dissolve in 4 ounces of water or me1 juice Route: PO; 17:24 Follow up: Response: No adverse reaction me1 Disposition Summary: 08/11/24 13:46 Hospitalization Ordered Notes: Hospitalization Status: Inpatient Admission [place] Provider: Lynn Michelle cha Location: Telemetry/MedSurg (Inpatient)(08/11/24 13:46) [place] Condition: Fair(08/11/24 13:46) [place] Problem: new(08/11/24 13:46) [place] Symptoms: have improved(08/11/24 13:46) [place] Bed/Room Type: Standard boston Room Assignment: 413(08/11/24 17:46) 6 Diagnosis - Chest pain, unspecified(08/11/24 13:46) [place] - Chest pain on breathing(08/11/24 13:46) [place]oston - Hypokalemia boston - Non ST elevation [place] boston - Cardiomegaly boston - Essential (primary) hypertension b[place] - Pleural effusion, not elsewhere classified [place] - Chronic combined systolic (congestive) and diastolic (congestive) heart failure boston Forms: - Medication Reconciliation Form b[place] - SBAR form boston - Leadership Thank You Letter boston Signatures: Dispatcher [employer] EDMS Victor Hugo Wang MD MD cha Prokisch, Amanda RN RN ap3 Gracia Oconnor PA-C PAVinicio sb4 Floridalma Cuevas bc6 Jennifer Sandoval RN RN me1 Corrections: (The following items were deleted from the chart) 12:06 12:06 Chest Single View+RAD.RAD.BRZ ordered. 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
[2024-08-11 14:03] LABS: Band Neutrophils 4 % (0-1); Blood Morphology Comment NOT SEEN (NOT SEEN); Differential Total Cells Count 100; Eosinophils 3 % (0-3); Lymphocytes 51 % (15-42); Monocytes 3 % (0-10); Platelet Estimate ADEQ; Reactive Lymphocytes 3 %; Segmented Neutrophils 35 % (40-80)
--- NOTE | 2024-08-11 14:06 | RAD REPORT ---
EXAM: Chest Pa And Lat (2 Views) HISTORY: 33 years Female CHEST PAIN COMPARISON: 07/17/2024 FINDINGS: LUNGS/PLEURA: Small left pleural effusion is present. The right lung bases clear. There is probably s ome atelectasis at the left lung base. CARDIAC/MEDIASTINUM: The cardiac silhouette is within normal limits. UPPER ABDOMEN: No significant abnormality. BONES: No acute abnormality. LINES/TUBES/OTHER: N/A IMPRESSION: Small left pleural effusion which could be on the basis of pulmonary edema/congestive heart failure.
[2024-08-11] MEDS ORDERED: POTASSIUM 25 MEQ EFFERV TAB ONE ×2 (14:29→14:52)
[2024-08-11] MEDS ORDERED: KCL 20 MEQ/100 mL IVPB 100 ML IV ONE (14:30)
[2024-08-11] MEDS ORDERED: MORPHINE 4 MG/ML SYR ONE (14:39)
[2024-08-11] MEDS ORDERED: ONDANSETRON 4 MG/2 ML VIAL ONE (14:39)
[2024-08-11] MEDS ORDERED: NITROGLYCERIN 1 GM PKT TD ONE (14:51)
[2024-08-11] MEDS ORDERED: METOPROLOL TAR 50 MG TAB ONE (14:51)
[2024-08-11] MEDS ORDERED: FUROSEMIDE 40 MG/4 ML VIAL ONE ×2 (14:52→17:32)
--- NOTE | 2024-08-11 14:58 | P.HP ---
Certification for Inpatient Patient admitted to: Inpatient Practitioner: I am a practitioner with admitting privileges, knowledge of patient current condition, hospital course, and medical plan of care. Services: Services provided to patient in accordance with Admission requirements found in Title 42 Section 412.3 of the Code of Federal Regulations Patient History Date of Service: 08/11/24 Reason for admission: Chest pain, heart failure History of Present Illness: 33-year-old -[place] female with a past medical history congestive heart failure, hypertension, stroke, presents to the emergency room with chest pain. She reports chest pain started while at work today, is 4 out of 10, she reports chest pain worse with exertion. Described as sharp. She reports symptoms improved with as needed analgesic from the emergency room. She denies nausea, abdominal pain, dizziness, edema. She reports history of prior admissions for acute on chronic heart failure. Blood pressure in the emergency room 156/107, heart rate 70, 16, 98% on room air. EKG shows sinus rhythm rate 68, no ST changes. Troponin mildly elevated 71. Potassium 2.9, elevated BNP 3571, left shift, neutrophils 39.4, no leukocytosis, elevated lymphocytes 51, chest x-ray shows. Plan to admit for NSTEMI, pleuritic chest pain, cardiomegaly, with cardiology to consult. Allergies No Known Allergies Allergy (Unverified 04/25/21 09:20) Home Medications: Amoxicillin/Potassium Clav [Augmentin 500-125 Tablet] 1 each PO BID #14 tablet 04/28/21 Aspirin [Aspirin EC 81 MG] 81 mg PO DAILY #90 tablet. 04/28/21 Furosemide [Lasix] 40 mg PO BIDL #60 tab 04/28/21 Mupirocin Oint [Bactroban 2% Ointment] 8 appl TOP BID #1 tube 04/28/21 Valsartan [Diovan] 160 mg PO BID #60 tab 04/28/21 carvediloL [Coreg*] 25 mg PO BID 6AM 6PM #60 tab 04/28/21 Review of Systems 10-point ROS is otherwise unremarkable Physical Examination - Physical Exam General: Alert, In no apparent distress, Mild distress HEENT: Atraumatic, Normocephalic Neck: Supple, 2+ carotid pulse no bruit Respiratory: Clear to auscultation bilaterally, Normal air movement Cardiovascular: No edema, Normal pulses, Regular rate/rhythm, Normal S1 S2 Capillary refill: <2 Seconds Gastrointestinal: Normal bowel sounds, Soft and benign Musculoskeletal: No clubbing, No swelling Integumentary: No breakdown, No significant lesion Neurological: Normal speech, Normal strength at 5/5 x4 extr, Sensation intact, Cranial nerves 3-12 intact - Studies Laboratory Data (last 24 hrs) 08/11/24 08/11/24 08/11/24 13:04 13:04 13:04 WBC 4.00 L Hgb 12.0 Hct 35.0 L Plt Count 214 PT 15.5 H INR 1.38 Sodium 141 Potassium 2.9 L BUN 9 Creatinine 0.82 Glucose 93 Magnesium 1.7 Total Bilirubin 1.1 H AST 12 L ALT 24 Alkaline Phosphatase 59 Assessment and Plan - Problems (Diagnosis) (1) Chest pain, pleuritic Current Visit: Yes Status: Acute (2) NSTEMI (non-ST elevated myocardial infarction) Current Visit: Yes Status: Acute (3) History of CVA (cerebrovascular accident) Current Visit: Yes Status: Acute (4) Hypertension Current Visit: Yes Status: Acute Qualifiers: Hypertension type: unspecified Qualified Code(s): I10 - Essential (primary) hypertension - Plan Assessment Pleuritic chest pain NSTEMI Acute on chronic heart failure unknown baseline Hypertension Cardiology consult Trend troponins Chest x-ray MRI unremarked Lipid panel Lasix, beta-gustavo, aspirin, as needed analgesics, Echo ordered She reports being on Entresto 156/107, heart rate 70, 16, 98% on room air. EKG shows sinus rhythm rate 68, no ST changes. Troponin mildly elevated 71., elevated BNP 3571, CBC left shift, neutrophils 39.4, no leukocytosis, elevated lymphocytes 51, D-dimer normal chest x-ray shows possible left lower lobe opacities, may be may include underpenetrated Hypokalemia Trend electrolytes replace. Potassium 2.9 History of CVA Resume home meds Lipid panel Full code DVT Diet cardiac Disposition Home independent prior Discharge Plan: Home - Advance Directives Does patient have a Living Will: No Does patient have a Durable POA for Healthcare: No - Code Status/Comfort Care Code Status: Full Code Critical Care: No Time Spent Managing Pts Care (In Minutes): 55
[2024-08-11] MEDS ORDERED: ONDANSETRON 4 MG/2 ML VIAL IV PRN (15:00)
[2024-08-11] MEDS ORDERED: ACETAMINOPHEN 500 MG TAB PO PRN (15:00)
[2024-08-11] MEDS ORDERED: METOPROLOL TARTRATE 5 MG/5 ML INJ IV PRN (15:07)
[2024-08-11] MEDS: FUROSEMIDE 40 MG/4 ML VIAL IV SCH (15:08)
[2024-08-11] MEDS: MORPHINE 4 MG/ML SYR IV ONE (16:58)
[2024-08-11] MEDS ORDERED: carvediloL 6.25 MG TAB ONE (17:37)
[2024-08-11] MEDS: carvediloL 25 MG TAB PO SCH (17:38)
[2024-08-11 17:59] VITALS: BMI 39.8
[2024-08-11] MEDS ORDERED: HYDROMORPHONE HCL 0.5 MG/0.5 ML INJ ONE (18:51)
[2024-08-11] MEDS: HYDROMORPHONE HCL 0.5 MG/0.5 ML INJ IV PRN (18:54)
--- NOTE | 2024-08-11 19:23 | RAD REPORT ---
EXAMINATION: CTA CHEST PE CLINICAL INDICATION: Female, 33 years old. rule out PE TECHNIQUE: This examination was performed according to an angiographic protocol with 3D post-processi ng. This involves 3D reconstructions, MIPs, volume rendered images and/or shaded surface rendering. One or more of the following dose reduction techniques were used: Automated exposure control, adjustm ent of the mA and/or kV according to patient size, and/or iterative reconstruction. Unless otherwise specified, incidental findings do not require dedicated imaging follow-up. [id number]. COMPARISON: Same day chest radiograph., Chest CT 04/25/2021 FINDINGS: LOWER NECK: Visualized thyroid gland and soft tissues are normal. LUNGS AND AIRWAYS: Mosaic lung attenuation. Chronic vascular prominence.No suspicious and/or stable p ulmonary nodules. PLEURA: Small left pleural effusion. MEDIASTINUM AND LYMPH NODES: No mediastinal mass or fluid collection. Normal size mediastinal, hilar, and axillary lymph nodes. THORACIC AORTA: No thoracic aortic aneurysm. PULMONARY ARTERIES: Caliber is within normal limits. No pulmonary emboli identified. HEART: Moderate cardiomegaly. No coronary calcifications.Trace pericardial effusion. OSSEOUS STRUCTURES AND CHEST WALL: No fracture or suspicious osseous lesions. UPPER ABDOMEN: No acute abnormalities.Reflux of contrast into the hepatic veins. IMPRESSION: No evidence of pulmonary emboli to the subsegmental level. Mosaic lung attenuation which could indica te small airways disease.. Small left pleural effusion in addition to some reflux of contrast into the hepatic veins. Consider right heart dysfunction. Moderate cardiomegaly.
[2024-08-11] MEDS: ENOXAPARIN 40 MG/0.4 ML SQ SCH (21:18)
[2024-08-11] MEDS: HYDROCODONE/APAP 7.5/325 MG TAB PO PRN (21:25)
[2024-08-11 23:00] VITALS: O2SAT 100
[2024-08-12 06:44] LABS: Absolute Lymphocytes (CBC) 1.4 K/uL (0.7-4.9); Absolute Monocytes 1.1 K/uL (0.1-1.3); Absolute Neutrophil 6.3 K/uL (1.8-8.0); Basophils % 0.4 % (0-1.3); Eosinophils % 0.4 % (0-4.4); Hematocrit 34.6 % (36.0-45.0); Hemoglobin 11.8 g/dL (12.0-15.0); Lymphocytes % 15.5 % (15.3-44.8); MCH 31.8 pg (27.0-35.0); MCHC 34.1 g/dL (32.0-36.0); MCV 93.4 fL (80-100); MPV 9.1 fL (7.6-11.3); Monocytes % 12.8 % (3.3-12.3); Neutrophils % 70.9 % (41.7-73.7); Platelets 213 thou/uL (152-406); RBC Red Blood Cell Count 3.71 M/uL (3.86-4.86); Red Cell Distribution Width 13.7 % (12.1-15.2)
[2024-08-12 07:00] LABS: Anion Gap 8.8 mEq/L (5.0-15.0); Magnesium 1.7 mg/dL (1.6-2.4); Potassium 3.8 mEq/L (3.5-5.1); Troponin High Sensitivity 45.1 pg/mL (<58.9)
[2024-08-12 07:34] LABS: Urine Bacteria None Seen /HPF (<20); Urine Bilirubin NEGATIVE (Negative); Urine Blood Trace (Negative); Urine Clarity Clear (Clear); Urine Color Yellow (Yellow); Urine Culture Reflex Order NOT NEEDED; Urine Glucose NEGATIVE (Negative); Urine Ketones NEGATIVE (Negative); Urine Microscopic Reflex YN ORDER UMIC; Urine Nitrite NEGATIVE (Negative); Urine Protein TRACE (Negative); Urine Urobilinogen 3+ (Normal); Urine WBC <5 /HPF (<5)
[2024-08-12 07:40] LABS: Specific Gravity > 1.030 (1.005-1.030)
[2024-08-12 08:23] VITALS: BP 114/82; TEMP 97.6
[2024-08-12] MEDS: ASPIRIN EC 81 MG TAB PO SCH (08:27)
[2024-08-12] MEDS ORDERED: FLU (Fluarix Triv) TS24-25(6MOS UP)/PF 45 MCG/0.5 ML Syringe IM ONE (09:45)
== END 2024-08-12 10:26 | disposition home or self-care (01) ==
LOC: ER 11:52 → ERHOLD 14:58 → 4TH 18:09
PROVIDERS: ADMIT Hospitalist; ATTEND Hospitalist
DX: I21.4 Non-ST elevation (NSTEMI) myocardial infarction (principal); I25.10 Atherosclerotic heart disease of native coronary artery without angina pectoris; I50.42 Chronic combined systolic (congestive) and diastolic (congestive) heart failure; J90 Pleural effusion, not elsewhere classified; I51.7 Cardiomegaly; E87.6 Hypokalemia; Z86.73 Personal history of transient ischemic attack (TIA), and cerebral infarction without residual deficits
CPT/HCPCS: 96365; 96361; 85025 ×2; 81001 ×2; 80048 ×2; 36415; 83735 ×2; 81025; 85610; 80061; 85379; 80076; 84484 ×5; 83880; 71275; 71045; 71046; 94760; 96375; 99285; 96366; Q9967; J3480; J1940 ×3; J1650; J1171 ×2; J2405; J7030; 93005

== ENCOUNTER 2024-09-11 23:00 | Inpatient (IN) | payer OTHER ==
[2024-09-11] MEDS ORDERED: BENZONATATE 100 MG CAP PO ONE (23:47)
[2024-09-11] MEDS ORDERED: FUROSEMIDE 40 MG/4 ML VIAL ONE (23:47)
[2024-09-11] MEDS ORDERED: guaiFENesin 100 MG/5 ML UCUP ONE (23:47)
[2024-09-12 00:04] LABS: Absolute Basophils 0.1 K/uL (0-0.5); Absolute Eosinophils 0.1 K/uL (0-0.5); Absolute Lymphocytes (CBC) 2.1 K/uL (0.7-4.9); Absolute Monocytes 0.2 K/uL (0.1-1.3); Absolute Neutrophil 1.4 K/uL (1.8-8.0); Basophils % 2.4 % (0-1.3); Eosinophils % 1.7 % (0-4.4); Hemoglobin 11.5 g/dL (12.0-15.0); Lymphocytes % 53.7 % (15.3-44.8); MCH 30.9 pg (27.0-35.0); MCHC 33.9 g/dL (32.0-36.0); MCV 91.3 fL (80-100); MPV 8.7 fL (7.6-11.3); Monocytes % 6.3 % (3.3-12.3); Neutrophils % 35.9 % (41.7-73.7); Nucleated Red Blood Cells % 0.3 % (0-0); Platelets 217 thou/uL (152-406); RBC Red Blood Cell Count 3.73 M/uL (3.86-4.86); Red Cell Distribution Width 14.4 % (12.1-15.2)
[2024-09-12 00:06] LABS: PT Prothrombin Time 21.4 SECONDS (10-13.0); Protime INR 1.94
[2024-09-12 00:16] LABS: Albumin 3.3 g/dL (3.4-5.0); Bilirubin Direct 0.3 mg/dL (0-0.2); Bilirubin Indirect, Calculated 0.6 mg/dL (0.2-0.8); Bilirubin Total 0.9 mg/dL (0.2-1.0); Globulin 3.3 g/dL (2.3-3.5); Magnesium 1.9 mg/dL (1.6-2.4); Protein, Total 6.6 g/dL (6.4-8.2)
[2024-09-12 00:27] LABS: Troponin High Sensitivity 93.3 pg/mL (<58.9)
[2024-09-12 00:40] LABS: Band Neutrophils 1 % (0-1); Differential Total Cells Count 100; Eosinophils 1 % (0-3); Lymphocytes 48 % (15-42); Monocytes 3 % (0-10); Reactive Lymphocytes 13 %; Segmented Neutrophils 33 % (40-80)
[2024-09-12 00:41] LABS: Blood Morphology Comment NOT SEEN (NOT SEEN); Platelet Estimate ADEQ
--- NOTE | 2024-09-12 01:01 | RAD REPORT ---
EXAM DESCRIPTION: X-ray single view chest. CLINICAL HISTORY: 33 years Female, CHEST PAIN COMPARISON: CT chest report from 08/11/2024. The images were unavailable for review TECHNIQUE: Single portable x-ray view of the chest performed on 09/11/2024 at 11:44 PM FINDINGS: The lungs are well expanded. There is mild hazy opacification throughout the lungs which may be due t o vascular congestion. There is no evidence of a pneumothorax. Cardiac silhouette is moderate to markedly enlarged which could be related to global cardiomegaly jhony dawson pericardial effusion. The mediastinal contours are normal. No acute osseous abnormality is identified. No focal soft tissue abnormalities are seen. Lines and tubes: None. Free air: None identified, IMPRESSION: 1. Moderate to marked enlargement of the cardiac silhouette which could be related to global cardio megaly versus possible pericardial effusion. 2. Mild hazy opacification throughout the lungs which may be due to vascular congestion. Electronically signed by: Cherie Velasquez DO 09/12/2024 12:27 AM CDT Due to temporary technical issues with the [employer] reporting system, reports are being nia d by the in-house radiologist without review as a courtesy to ensure prompt reporting the interpreting radiologist is fully responsible for the content of the report. Transcribed Date/Time: 09/12/2024 1:01 AM
[2024-09-12 01:16] LABS: Specific Gravity 1.012 (1.005-1.030); Sqamous Epithelial <5 /HPF (None Seen); Urine Bacteria None Seen /HPF (<20); Urine Bilirubin NEGATIVE (Negative); Urine Blood Trace (Negative); Urine Clarity Clear (Clear); Urine Color Light-Yellow (Yellow); Urine Culture Reflex Order NOT NEEDED; Urine Glucose NEGATIVE (Negative); Urine Ketones NEGATIVE (Negative); Urine Micro Reflex YN NO BILL MICROSCOPIC; Urine Nitrite NEGATIVE (Negative); Urine Protein NEGATIVE (Negative); Urine RBC <5 /HPF (None Seen); Urine Urobilinogen Normal (Normal); Urine WBC <5 /HPF (<5)
[2024-09-12 01:22] LABS: Barbiturates NEGATIVE (NEGATIVE); Benzodiazepines NEGATIVE (NEGATIVE); Cocaine NEGATIVE (NEGATIVE); METHAMPHETAM NEGATIVE (NEGATIVE); Methadone NEGATIVE (NEGATIVE); Opiates NEGATIVE (NEGATIVE); Phencyclidine NEGATIVE (NEGATIVE); THC Cannibis NEGATIVE (NEGATIVE)
--- NOTE | 2024-09-12 01:47 | EDPHYS ---
Physician Documentation [facility] Name: Tiffanie Pedroza Age: 33 yrs Sex: Female : 1990 Arrival Date: 09/11/2024 Time: 23:00 Bed 7 Private MD: ED Physician Markel Thompson HPI: 09/11 23:18 This 33 yrs old Black Female presents to ER via Unassigned with complaints of swelling. sp4 09/12 01:31 Patient presents with worsening dyspnea and reports that she perceives fluid on her sp4 chest. Patient has past medical history of congestive heart failure, history of cardiomyopathy diagnosed 7 years ago. History of hypertension stroke and NSTEMI. Patient has history of cardiomegaly. 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 Patient's medications include aspirin 81 mg daily, furosemide 40 mg twice daily, valsartan 160 mg twice daily, carvedilol 25 mg twice daily, apixaban 5 mg twice daily, atorvastatin 20 mg daily, hydrocodone as needed pain, potassium 40 mg daily, Entresto sacubitril/valsartan 1 tablet p.o. daily, spironolactone 25 mg p.o. daily.. Historical: - Allergies: 09/11 23:09 No Known Allergies; ha1 - Home Meds: 23:09 Furosemide Oral [Active]; Eliquis oral [Active]; ha1 - PMHx: 23:09 Congestive heart failure; Hypertensive disorder; stroke (August 2023); ha1 - PSHx: 23:09 section; ha1 - Immunization history:: Adult Immunizations up to date. - Infectious Disease History:: Denies. - Social history:: Smoking status: Patient/guardian denies using tobacco, the patient reports quitting approximately 1 years ago. - Family history:: not pertinent. ROS: 09/12 21:40 Constitutional: Negative for fever, chills, and weight loss, positive for dyspnea sp4 positive for chest discomfort All other systems are negative, Exam: 21:40 Constitutional: This is a well developed, well nourished patient who is awake, alert, sp4 and in no acute distress. Head/Face: Normocephalic, atraumatic. Eyes: Pupils equal round and reactive to light, extra-ocular motions intact. Lids and lashes normal. Conjunctiva and sclera are not injected. Cornea within normal limits. Periorbital areas with no swelling, redness, or edema. ENT: Nares patent. No nasal discharge, no septal abnormalities noted. Tympanic membranes are normal and external auditory canals are clear. Oropharynx with no redness, swelling, or masses, exudates, or evidence of obstruction, uvula midline. Mucous membranes moist. Neck: Trachea midline, no thyromegaly or masses palpated, and no cervical lymphadenopathy. Supple, full range of motion without nuchal rigidity, or vertebral point tenderness. Chest/axilla: Normal chest wall appearance and motion. Nontender with no deformity. No lesions are appreciated. Cardiovascular: Regular rate and rhythm with a normal S1 and S2. No gallops, murmurs, or rubs. Normal PMI, no JVD. No pulse deficits. Respiratory: Lungs have equal breath sounds bilaterally, clear to auscultation and percussion. No rales, rhonchi or wheezes noted. No increased work of breathing, no retractions or nasal flaring. Abdomen/GI: Soft, with normal bowel sounds. No distension or tympany. No guarding or rebound. No evidence of tenderness throughout. Back: No spinal tenderness. No costovertebral tenderness. Skin: Warm, dry with normal turgor. Normal color with no rashes, no lesions, and no evidence of cellulitis. MS/ Extremity: Pulses equal, no cyanosis. Neurovascular intact. Full, normal range of motion. Neuro: Awake and alert, GCS 15, oriented to person, place, time, and situation. Cranial nerves II-XII grossly intact. Motor strength 5/5 in all extremities. Sensory grossly intact. Psych: Awake, alert, with orientation to person, place and time. Behavior, mood, and affect are within normal limits 21:40 ECG was reviewed by the Attending Physician. EKG at 2329 normal sinus rhythm rate 76, left atrial enlargement, prolonged QT no ST elevation or depression. Vital Signs: 09/11 23:09 BP 142 / 96; Pulse 86; Resp 19 S; Temp 98.6(O); Pulse Ox 99% on R/A; Weight 112.94 kg; ha1 Height 5 ft. 5 in. ; 09/12 00:48 BP 130 / 96; Pulse 73; Resp 16; Pulse Ox 100% on R/A; jb4 02:50 BP 133 / 109; Pulse 80; Resp 16; Pulse Ox 97% on R/A; jb4 09/11 23:09 Body Mass Index 41.44 (112.94 kg, 165.1 cm) ha1 Jessa Coma Score: 21:40 Eye Response: spontaneous(4). Motor Response: obeys commands(6). Verbal Response: sp4 oriented(5). Total: 15. MDM: 09/11 23:19 Medical Screening Exam initiated sp4 09/12 01:25 ED course: EXAM DESCRIPTION: X-ray single view chest. CLINICAL HISTORY: 33 years sp4 Female, CHEST PAIN COMPARISON: CT chest report from 08/11/2024. The images were unavailable for review TECHNIQUE: Single portable x-ray view of the chest performed on 09/11/2024 at 11:44 PM FINDINGS: The lungs are well expanded. There is mild hazy opacification throughout the lungs which may be due to vascular congestion. There is no evidence of a pneumothorax. Cardiac silhouette is moderate to markedly enlarged which could be related to global cardiomegaly versus pericardial effusion. The mediastinal contours are normal. No acute osseous abnormality is identified. No focal soft tissue abnormalities are seen. Lines and tubes: None. Free air: None identified, IMPRESSION: 1. Moderate to marked enlargement of the cardiac silhouette which could be related to global cardiomegaly versus possible pericardial effusion. 2. Mild hazy opacification throughout the lungs which may be due to vascular congestion.. 01:26 Differential diagnosis: acute pericarditis, anxiety, coronary artery disease chest wall sp4 pain, congestive heart failure cholecystitis. HEART Score: History: Moderately Suspicious (1), ECG: Non specific repolarization disturbance / LBTB / PM (1), Age: < or = 45 years (0), Risk Factors: > or = 3 Risk factors for atherosclerotic disease (2), Troponin: > 1 and < 3 x normal limit (1), Total Score = 5. Data reviewed: vital signs, nurses notes, old medical records, lab test result(s), EKG, radiologic studies, plain films. 01:41 ED course: EXAM DESCRIPTION: X-ray single view chest. CLINICAL HISTORY: 33 years sp4 Female, CHEST PAIN COMPARISON: CT chest report from 08/11/2024. The images were unavailable for review TECHNIQUE: Single portable x-ray view of the chest performed on 09/11/2024 at 11:44 PM FINDINGS: The lungs are well expanded. There is mild hazy opacification throughout the lungs which may be due to vascular congestion. There is no evidence of a pneumothorax. Cardiac silhouette is moderate to markedly enlarged which could be related to global cardiomegaly versus pericardial effusion. The mediastinal contours are normal. No acute osseous abnormality is identified. No focal soft tissue abnormalities are seen. Lines and tubes: None. Free air: None identified, IMPRESSION: 1. Moderate to marked enlargement of the cardiac silhouette which could be related to global cardiomegaly versus possible pericardial effusion. 2. Mild hazy opacification throughout the lungs which may be due to vascular congestion. Electronically signed by: Cherie Velasquez DO 09/12/2024 12:27 . 21:42 ED course: Patient improved. Stable for admission to the hospital.. sp4 09/11 23:19 Order name: Basic Metabolic Panel; Complete Time: sp4 09/11 23:19 Order name: CBC with Diff; Complete Time: sp4 09/11 23:19 Order name: LFT's; Complete Time: sp4 09/11 23:19 Order name: Magnesium; Complete Time: sp4 09/11 23:19 Order name: NT PRO-BNP; Complete Time: sp4 09/11 23:19 Order name: PT-INR; Complete Time: sp4 09/11 23:19 Order name: Troponin HS; Complete Time: sp4 09/11 23:19 Order name: Test, Serum; Complete Time: sp4 09/11 23:42 Order name: Urine Drug Screen; Complete Time: sp4 09/11 23:42 Order name: Urinalysis W/Microscopic; Complete Time: sp4 09/12 00:12 Order name: Manual Differential; Complete Time: EDMS 09/12 01:28 Order name: Troponin High Sensitivity; Complete Time: 03:05 sp4 09/12 02:02 Order name: Urinalysis w/ reflexes EDMS 09/12 02:02 Order name: CBC with Automated Diff EDMS 09/12 02:02 Order name: CBC with Automated Diff EDMS 09/12 02:02 Order name: Comprehensive Metabolic Panel EDMS 09/12 02:02 Order name: Comprehensive Metabolic Panel EDMS 09/12 02:02 Order name: Troponin High Sensitivity EDMS 09/12 02:02 Order name: Troponin High Sensitivity EDMS 09/12 02:02 Order name: Troponin High Sensitivity EDMS 09/12 02:02 Order name: Troponin High Sensitivity EDMS 09/11 23:19 Order name: XRAY Chest (1 view); Complete Time: 01:25 sp4 09/11 23:19 Order name: Cardiac monitoring; Complete Time: 23:36 sp4 09/11 23:19 Order name: EKG - Nurse/Tech; Complete Time: 23:36 sp4 09/11 23:19 Order name: IV Saline Lock; Complete Time: 23:46 sp4 09/11 23:19 Order name: Labs collected and sent; Complete Time: 23:46 sp4 09/11 23:19 Order name: O2 Per Protocol; Complete Time: 23:36 sp4 09/11 23:19 Order name: O2 Sat Monitoring; Complete Time: 23:36 sp4 EC/07 23:29 Rate is 76 beats/min. Rhythm is regular, Normal Sinus Rhythm. QRS Bells is Normal. [place] sp4 interval is normal. QRS interval is prolonged. QT interval is prolonged. No ST changes noted. Clinical impression: No evidence of ischemia. Interpreted by me. Reviewed by me. Administered Medications: 23:54 Drug: Furosemide IVP 40 mg IVP once; give over 2 minutes Route: IVP; Site: right kd3 antecubital; 09/12 01:06 Follow up: Response: No adverse reaction kd3 09/11 23:54 Drug: Tessalon Perle PO 200 mg PO once Route: PO; kd3 09/12 01:06 Follow up: Response: No adverse reaction 3 09/11 23:54 Drug: Dextromethorphan-Guaifenesin PO Liquid 10 mg-100 mg/5 mL 20 ml PO once Route: PO; kd3 09/12 01:06 Follow up: Response: No adverse reaction kd3 02:50 Drug: Potassium PO Effervescent Tablet 50 mEq PO once; dissolve in 4 ounces of water or jb4 juice Route: PO; 02:50 Drug: Diazepam PO 5 mg PO once Route: PO; jb4 02:50 Drug: Aspirin PO Chewable Tablet 324 mg PO once; 81 mg tablets x 4 Route: PO; jb4 02:56 Follow up: Response: No adverse reaction rg5 Disposition: 21:44 Chart complete. sp4 Disposition Summary: 09/12/24 01:47 Hospitalization Ordered Notes: Hospitalization Status: Inpatient Admission sp4 Provider: Israel Manley sp4 Location: Telemetry/MedSurg (Inpatient) sp4 Condition: Stable sp4 Problem: new sp4 Symptoms: have improved sp4 Bed/Room Type: Standard sp4 Room Assignment: 215(09/12/24 02:13) vk Diagnosis - Acute on chronic combined systolic (congestive) and diastolic (congestive) heart sp4 failure - Acute on chronic diastolic and systolic heart failure, acute pulmonary congestion, sp4 dyspnea on exertion, elevated troponin I, history of nonischemic cardiomyopathy Forms: - Medication Reconciliation Form sp4 - SBAR form sp4 - Leadership Thank You Letter sp4 Signatures: Dispatcher [employer] EDEric Clemente RN RN jb4 Martha Lane RN TIKA kd3 Diann Mcdonald RN RN ha1 Markel Thompson MD MD sp4 Arlene Corbin Rommel RN rg5 Corrections: (The following items were deleted from the chart) 09/11 23:19 23:19 BASIC METABOLIC PANEL+C.LAB.BRZ ordered. EDMS EDMS 23:19 23:19 CBC+H.LAB.BRZ ordered. EDMS EDMS 23:19 23:19 HEPATIC FUNCTION+C.LAB.BRZ ordered. EDMS EDMS 23:19 23:19 MAGNESIUM+C.LAB.BRZ ordered. EDMS EDMS 23:19 23:19 PROBNP+C.LAB.BRZ ordered. EDMS EDMS 23:19 23:19 PROTIME (+INR)+COAG.LAB.BRZ ordered. EDMS EDMS 23:19 23:19 Troponin High Sensitivity+C.LAB.BRZ ordered. EDMS EDMS 23:19 23:19 Chest Single View+RAD.RAD.BRZ ordered. EDMS EDMS 23:20 23:20 TEST, SERUM+SC.LAB.BRZ ordered. EDMS EDMS 23:42 23:42 URINE DRUG SCREEN+UC.LAB.BRZ ordered. EDMS EDMS :42 23:42 Urinalysis W/Microscopic+U.LAB.BRZ ordered. EDMS EDMS 09/12 01:28 01:28 Troponin High Sensitivity+C.LAB.BRZ ordered. EDMS EDMS 02:13 01:47 sp4 vk
--- NOTE | 2024-09-12 01:47 | ER ---
Nurse's Notes [facility] Name: Tiffanie Pedroza Age: 33 yrs Sex: Female : 1990 Arrival Date: 09/11/2024 Time: 23:00 Bed 7 Private MD: Diagnosis: Acute on chronic combined systolic (congestive) and diastolic (congestive) heart failure;Acute on chronic diastolic and systolic heart failure, acute pulmonary congestion, dyspnea on exertion, elevated troponin I, history of nonischemic cardiomyopathy Presentation: 09/11 23:09 Chief complaint: Patient states: SHORTNESS OF BREATH AND ONGOING DRY COUGH. POSSIBLE ha1 FLUID RETENTION. 23:09 Coronavirus screen: Client denies travel out of the [place] in the last 14 days. Ebola ha1 Screen: No symptoms or risks identified at this time. Initial Sepsis Screen: Does the patient meet any 2 criteria? No. Patient's initial sepsis screen is negative. Does the patient have a suspected source of infection? No. Patient's initial sepsis screen is negative. Risk Assessment: Do you want to hurt yourself or someone else? Patient reports no desire to harm self or others. Onset of symptoms was September 11, 2024. 23:09 Method Of Arrival: Ambulatory ha1 23:09 Acuity: INO 3 ha1 Triage Assessment: 23:09 General: Appears uncomfortable, Behavior is calm, cooperative. Pain: Denies pain. ha1 Neuro: Level of Consciousness is awake, alert, obeys commands, Oriented to person, place, time, situation. Cardiovascular: Patient's skin is warm and dry. Cardiovascular: Reports shortness of breath. Respiratory: Airway is patent Respiratory effort is even, unlabored, Respiratory pattern is regular, symmetrical. Respiratory: Reports shortness of breath at rest. GI: Abdomen is round obese. Derm: Skin is normal. Musculoskeletal: Circulation, motion, and sensation intact. Range of motion: intact in all extremities. Historical: - Allergies: 23:09 No Known Allergies; ha1 - Home Meds: 23:09 Furosemide Oral [Active]; Eliquis oral [Active]; ha1 - PMHx: 23:09 Congestive heart failure; Hypertensive disorder; stroke (August 2023); ha1 - PSHx: 23:09 section; ha1 - Immunization history:: Adult Immunizations up to date. - Infectious Disease History:: Denies. - Social history:: Smoking status: Patient/guardian denies using tobacco, the patient reports quitting approximately 1 years ago. - Family history:: not pertinent. Screenin:28 Abuse screen: Denies threats or abuse. Denies injuries from another. Nutritional ha1 screening: No deficits noted. Tuberculosis screening: No symptoms or risk factors identified. 09/12 03:28 [facility] ED Fall Risk Assessment (Adult) Altered Elimination. br2 Assessment: 00:00 General: Appears in no apparent distress. comfortable, Behavior is calm, cooperative, jb4 appropriate for age. Pain: Denies pain. Neuro: Level of Consciousness is awake, alert, obeys commands, Oriented to person, place, time, situation. Cardiovascular: Patient's skin is warm and dry. Respiratory: Reports shortness of breath at rest Airway is patent Respiratory effort is even, unlabored, Respiratory pattern is regular, symmetrical. GI: Abdomen is round non-distended, obese. Derm: Skin is intact, Skin is dry, Skin is normal, Skin temperature is warm. 00:48 Reassessment: Patient appears in no apparent distress at this time. Patient and/or jb4 family updated on plan of care and expected duration. Pain level reassessed. Patient is alert, oriented x 3, equal unlabored respirations, skin warm/dry/pink. 02:00 Reassessment: Patient appears in no apparent distress at this time. Patient and/or jb4 family updated on plan of care and expected duration. Pain level reassessed. Patient is alert, oriented x 3, equal unlabored respirations, skin warm/dry/pink. 03:00 Reassessment: Patient appears in no apparent distress at this time. Patient and/or jb4 family updated on plan of care and expected duration. Pain level reassessed. Patient is alert, oriented x 3, equal unlabored respirations, skin warm/dry/pink. Vital Signs: 09/11 23:09 BP 142 / 96; Pulse 86; Resp 19 S; Temp 98.6(O); Pulse Ox 99% on R/A; Weight 112.94 kg; ha1 Height 5 ft. 5 in. ; 09/12 00:48 BP 130 / 96; Pulse 73; Resp 16; Pulse Ox 100% on R/A; jb4 02:50 BP 133 / 109; Pulse 80; Resp 16; Pulse Ox 97% on R/A; jb4 09/11 23:09 Body Mass Index 41.44 (112.94 kg, 165.1 cm) ha1 Jessa Coma Score: 21:40 Eye Response: spontaneous(4). Motor Response: obeys commands(6). Verbal Response: sp4 oriented(5). Total: 15. ED Course: 09/11 23:04 Patient arrived in ED. al6 23:18 Markel Thompson MD is Attending Physician. sp4 23:25 Triage completed. ha1 23:[address], RN is Primary Nurse. kd3 23:47 Basic Metabolic Panel Sent. ha1 23:47 CBC with Diff Sent. ha1 23:47 LFT's Sent. ha1 23:47 Magnesium Sent. ha1 23:47 NT PRO-BNP Sent. ha1 23:47 PT-INR Sent. ha1 23:47 Troponin HS Sent. ha1 23:50 XRAY Chest (1 view) In Process Unspecified. EDMS 09/12 01:06 Urinalysis W/Microscopic Sent. kd3 01:07 Urine Drug Screen Sent. kd3 01:42 Israel Manley MD is Hospitalizing Provider. sp4 02:16 Initial lab(s) drawn, sent to lab. vk 03:28 Patient admitted, IV remains in place. br2 Administered Medications: 09/11 23:54 Drug: Furosemide IVP 40 mg IVP once; give over 2 minutes Route: IVP; Site: right kd3 antecubital; 09/12 01:06 Follow up: Response: No adverse reaction kd3 09/11 23:54 Drug: Tessalon Perle PO 200 mg PO once Route: PO; kd3 09/12 01:06 Follow up: Response: No adverse reaction kd3 09/11 23:54 Drug: Dextromethorphan-Guaifenesin PO Liquid 10 mg-100 mg/5 mL 20 ml PO once Route: PO; kd3 09/12 01:06 Follow up: Response: No adverse reaction kd3 02:50 Drug: Potassium PO Effervescent Tablet 50 mEq PO once; dissolve in 4 ounces of water or jb4 juice Route: PO; 02:50 Drug: Diazepam PO 5 mg PO once Route: PO; jb4 02:50 Drug: Aspirin PO Chewable Tablet 324 mg PO once; 81 mg tablets x 4 Route: PO; jb4 02:56 Follow up: Response: No adverse reaction rg5 Outcome: 01:47 Decision to Hospitalize by Provider. sp4 03:27 Admitted to Med/surg accompanied by tech, via stretcher, via wheelchair, room 215, br2 03:27 Condition: stable 03:27 Instructed on the need for admit, 03:40 Patient left the ED. br2 Signatures: Dispatcher [employer] EDMS Eric Banks RN RN jb4 Martha Lane RN RN kd3 Diann Mcdonald RN RN ha1 Markel Thompson MD MD sp4 Arlene Corbin Rommel RN RN rg5 Natalie Alves RN RN br2 Kimberly Aguilera al6
--- NOTE | 2024-09-12 01:52 | P.HP ---
Certification for Inpatient Patient admitted to: Inpatient With expected LOS: >2 Midnights Practitioner: I am a practitioner with admitting privileges, knowledge of patient current condition, hospital course, and medical plan of care. Services: Services provided to patient in accordance with Admission requirements found in Title 42 Section 412.3 of the Code of Federal Regulations Patient History Date of Service: 09/12/24 Reason for admission: SOB History of Present Illness: 33 yrs old Female with past medical history of CHF, hypertension, hyperlipidemia, history of CVA, cardiomyopathy which was diagnosed 7 years ago brought to ER with generalized weakness and swelling. It also started 4 days ago and has been progressively worsening. Associated with shortness of breath. Denies any chest pain. No fever or chills. No sick contacts. Also associated with bilateral lower extremity swelling. Patient was assessed in the ER and is admitted for further management of CHF exacerbation. Patient's food safety officer is Dr. Danial Green at [facility]. She reports history of prior admissions for acute on chronic heart failure. Allergies No Known Allergies Allergy (Unverified 04/25/21 09:20) Home medications list reviewed: Yes Home Medications: Aspirin [Aspirin EC 81 MG] 81 mg PO DAILY #90 tablet. 04/28/21 Furosemide [Lasix*] 40 mg PO BIDL #60 tab 04/28/21 Valsartan [Diovan*] 160 mg PO BID #60 tab 04/28/21 carvediloL [Coreg*] 25 mg PO BID 6AM 6PM #60 tab 04/28/21 Apixaban [Eliquis] 5 mg PO DAILY 08/12/24 Atorvastatin Calcium [Lipitor*] 20 mg PO DAILY 08/12/24 Hydrocodone 7.5/APAP 325 [Toone 7.5/325 mg*] 1 tab PO Q12HP PRN #20 tab 08/12/24 Potassium Chloride [Klor-Con M20] 40 mg PO DAILY 08/12/24 Sacubitril/Valsartan [Entresto 49 mg-51 mg Tablet] 1 mg PO DAILY 08/12/24 Spironolactone [Aldactone*] 25 mg PO DAILY 08/12/24 - Past Medical/Surgical History Diabetic: No Past Medical History: Reviewed- Non-Contributory -: HTN -: Stroke 2023 Past Surgical History: Reviewed- Non-Contributory -: 2017 - Family History Family History: Reviewed- Non-Contributory - Social History Smoking Status: Never smoker Alcohol use: No CD- Drugs: No Caffeine use: Yes Review of Systems 10-point ROS is otherwise unremarkable Physical Examination - Vital Signs Temperature: 98.4 F Blood Pressure: 146/72 Pulse: 84 Respirations: 18 Pulse Ox (%): 94 - Physical Exam General: Alert, Oriented x3, Moderate distress HEENT: Atraumatic, Normocephalic Neck: Supple Respiratory: Clear to auscultation bilaterally, Normal air movement, Crackles/rales Cardiovascular: Regular rate/rhythm, Normal S1 S2 Capillary refill: <2 Seconds Gastrointestinal: Soft and benign, W/out hepatosplenomegaly Musculoskeletal: No clubbing, Swelling Integumentary: No rashes Neurological: Other (Alert, Awake, non focal ) Lymphatics: No axilla or inguinal lymphadenopathy - Studies Laboratory Data (last 24 hrs) 09/11/24 09/11/24 09/11/24 23:44 23:44 23:44 WBC 3.90 L Hgb 11.5 L Hct 34.0 L Plt Count 217 PT 21.4 H INR 1.94 Sodium 138 Potassium 3.0 L BUN 19 H Creatinine 0.99 Glucose 101 Magnesium 1.9 Total Bilirubin 0.9 AST 20 ALT 25 Alkaline Phosphatase 57 Assessment and Plan - Plan NSTEMI possibly type II Will trend cardiac enzymes Will monitor telemetry Started on aspirin and statin EKG did not show any acute changes suggestive of ischemia Patient denies any chest pain Acute on chronic CHF possibly systolic/diastolic History of cardiomyopathy Monitor closely on telemetry Started on aggressive diuresis X-ray findings consistent with CHF Oxygen supplementation Will try to wean down oxygen requirement Continue home medications Titrate as needed Will get an echocardiogram Cardiology consult Hypertension Antihypertensives titrated Continue home medications and titrate as needed Hyperlipidemia Continue statin History of CVA Supportive management Continue home medications and titrate as needed GI/DVT prophylaxis Advanced directive full code - Advance Directives Does patient have a Living Will: No Does patient have a Durable POA for Healthcare: No Time Spent Managing Pts Care (In Minutes): 48
[2024-09-12] MEDS ORDERED: ONDANSETRON 4 MG/2 ML VIAL IV PRN (01:56)
[2024-09-12] MEDS ORDERED: ALBUTEROL 2.5 MG/3 ML NEB SOL NEB PRN (01:56)
[2024-09-12] MEDS: FUROSEMIDE 40 MG/4 ML VIAL IV SCH (02:01)
[2024-09-12] MEDS ORDERED: ASPIRIN 81 MG CHEWABLE TABLET ONE (02:42)
[2024-09-12] MEDS ORDERED: DIAZEPAM 5 MG TABLET ONE (02:42)
[2024-09-12] MEDS ORDERED: POTASSIUM 25 MEQ EFFERV TAB ONE (02:42)
[2024-09-12 04:15] VITALS: BMI 39.2
[2024-09-12 07:08] LABS: Anion Gap 10.7 mEq/L (5.0-15.0); Phosphorus 3.5 mg/dL (2.5-4.9); Potassium 3.7 mEq/L (3.5-5.1)
[2024-09-12 07:11] LABS: Troponin High Sensitivity 81.3 pg/mL (<58.9)
[2024-09-12] MEDS: ENOXAPARIN 40 MG/0.4 ML SQ SCH (08:12)
[2024-09-12] MEDS: ASPIRIN EC 81 MG TAB PO SCH (08:12)
[2024-09-12] MEDS: ATORVASTATIN 20 MG TAB PO SCH (08:13)
[2024-09-12] MEDS: POTASSIUM CL SA 10 MEQ TAB PO ONE (10:10)
--- NOTE | 2024-09-12 10:44 | P.CNS ---
Date of Consult: 09/12/24 Chief Complaint: SOB History of Present Illness: Patient with PMH of systolic heart failure, CM, presented with worsening SOB, HERRON and mild lower extremities edema, denies chest pain, no palpitations, no syncope, she say she has been complaint with her medications and she sees cardiology at [place]. Allergies No Known Allergies Allergy (Unverified 04/25/21 09:20) Home medications list reviewed: Yes Home Medications: Furosemide [Lasix*] 40 mg PO BIDL #60 tab 04/28/21 Valsartan [Diovan*] 160 mg PO BID #60 tab 04/28/21 carvediloL [Coreg*] 25 mg PO BID 6AM 6PM #60 tab 04/28/21 Apixaban [Eliquis] 5 mg PO DAILY 08/12/24 Atorvastatin Calcium [Lipitor*] 20 mg PO DAILY 08/12/24 Potassium Chloride [Klor-Con M20] 40 mg PO DAILY 08/12/24 Sacubitril/Valsartan [Entresto 49 mg-51 mg Tablet] 1 mg PO DAILY 08/12/24 Spironolactone [Aldactone*] 25 mg PO DAILY 08/12/24 - Past Medical/Surgical History Diabetic: No -: HTN -: Stroke 2023 -: 2016 - Social History Smoking Status: Current every day smoker Alcohol use: No CD- Drugs: No Caffeine use: Yes Place of Residence: Home Review of Systems 10-point ROS is otherwise unremarkable Physical Examination Temp Pulse Resp BP Pulse Ox 97.9 F 84 16 135/96 H 95 09/12/24 08:00 09/12/24 08:00 09/12/24 08:00 09/12/24 08:00 09/12/24 08:00 General: Alert, In no apparent distress HEENT: Atraumatic, PERRLA, Mucous membr. moist/pink, EOMI, Sclerae nonicteric Neck: Supple, 2+ carotid pulse no bruit, No LAD, Without JVD or thyroid abnormality Respiratory: Clear to auscultation bilaterally, Normal air movement Cardiovascular: Regular rate/rhythm, Normal S1 S2 Gastrointestinal: Normal bowel sounds, No tenderness Musculoskeletal: No tenderness Integumentary: No rashes Neurological: Normal gait, Normal speech, Normal tone, Normal affect Lymphatics: No axilla or inguinal lymphadenopathy Laboratory Data (last 24 hrs) 09/11/24 09/11/24 09/11/24 23:44 23:44 23:44 WBC 3.90 L Hgb 11.5 L Hct 34.0 L Plt Count 217 PT 21.4 H INR 1.94 Sodium 138 Potassium 3.0 L BUN 19 H Creatinine 0.99 Glucose 101 Magnesium 1.9 Total Bilirubin 0.9 AST 20 ALT 25 Alkaline Phosphatase 57 - Problems (1) Acute on chronic combined systolic and diastolic heart failure Current Visit: Yes Status: Acute Plan: continue Lasix 40 mg IV Q 8 hours continue coreg 25 mg po bid please reconcile and resume outpatient medications as patient say she is on Entresto and Aldactone patient will benefit from Frxiga 10 mg daily at discharge continue to monitor input and output and electrolytes. patient will benefit from outpatient follow up with heart failure clinic. (2) Type 2 CA (myocardial infarction) Current Visit: Yes Status: Acute Plan: patient was diagnosed with CM 7 years ago, she had coronary angiogram done and was told she got normal coronaries troponin elevation is mild with no delta, this is type 2 CA from CHF no further cardiac work up needed.
--- NOTE | 2024-09-12 10:55 | EKG ---
Test Date: 2024-09-11 Test Time: 23:29:01 Painter Sign Maintenance: LES MEASUREMENT RESULTS: Intervals: Rate: 76 NC: 178 QRSD: 114 QT: 444 QTc: 499 [place]: P: 50 NC: 178 QRS: 85 T: -78 INTERPRETIVE STATEMENTS: Normal sinus rhythm Possible Left atrial enlargement Incomplete left bundle branch block ST & T wave abnormality, consider inferior ischemia Prolonged QT Abnormal ECG Compared to ECG 08/11/2024 14:35:49 Left bundle-branch block now present Prolonged QT interval now present Myocardial infarct finding no longer present ST (T wave) deviation still present Possible ischemia still present Electronically Signed On 09-12-24 10:54:40 CDT by Baudilio Corea
--- NOTE | 2024-09-12 11:30 | ECHO ---
HEIGHT: 5 ft 5 in WEIGHT: 235 lb 8 oz DATE OF STUDY: REFER DR: Lang Manley DO 2-DIMENSIONAL: YES M.MODE: YES DOPPLER: YES COLOR FLOW: YES TDS: PORTABLE: YES DEFINITY: BUBBLE STUDY: DIAGNOSIS: CONGESTIVE HEART FAILURE CARDIAC HISTORY: CATHERIZATION: SURGERY: PROSTHETIC VALVE: PACEMAKER: MEASUREMENTS (cm) DIASTOLIC (NORMALS) SYSTOLIC (NORMALS) IVSd 1.1 (0.6-1.2) LA Diam 3.7 (1.9-4.0) LVEF 10-15% LVIDd 7.7 (3.5-5.7) LVIDs 7.2 (2.0-3.5) %FS 6% LVPWd 1.2 (0.6-1.2) Ao Diam 2.7 (2.0-3.7) 2 DIMENSIONAL ASSESSMENT: RIGHT ATRIUM: NORMAL LEFT ATRIUM: NORMAL RIGHT VENTRICLE: NORMAL LEFT VENTRICLE: SEVERELY DILATED TRICUSPID VALVE: TRACE TRICUSPID REGURGITATION MITRAL VALVE: MILD MITRAL REGURGITATION PULMONIC VALVE: MILD PULMONIC REGURGITATION AORTIC VALVE: NORMAL PERICARDIAL EFFUSION: SMALL AORTIC ROOT: NORMAL LEFT VENTRICULAR WALL MOTION: SEVERE GLOBAL HYPOKINESIS DOPPLER/COLOR FLOW: GRADE II DIASTOLIC DYSFUNCTION COMMENTS: 1. SEVERELY DILATED LEFT VENTRICULAR CAVITY 2. SEVERELY REDUCED LEFT VENTRICULAR SYSTOLIC FUNCTION, EJECTION FRACTION 10-15%, SEVERE GLOBAL HYPOKINESIS 3. GRADE II DIASTOLIC DYSFUNCTION 4. MILD MITRAL REGURGITATION 5. MILDLY ELEVATED FILLING PRESSURE (RIGHT ATRIAL PRESSURE 5-10 mmHg) TECHNOLOGIST: BRENDAN ALCARAZ
[2024-09-12] MEDS: SACUBITRIL/VALSARTAN 49/51 MG TAB PO SCH (11:45)
[2024-09-12] MEDS: ACETAMINOPHEN 325 MG TABLET PO PRN (15:31)
[2024-09-12] MEDS: carvediloL 25 MG TAB PO SCH (16:45)
[2024-09-13 04:32] LABS: Absolute Basophils 0.1 K/uL (0-0.5); Absolute Eosinophils 0.1 K/uL (0-0.5); Absolute Lymphocytes (CBC) 1.9 K/uL (0.7-4.9); Absolute Monocytes 0.3 K/uL (0.1-1.3); Absolute Neutrophil 1.5 K/uL (1.8-8.0); Basophils % 1.8 % (0-1.3); Eosinophils % 2.6 % (0-4.4); Hemoglobin 11.5 g/dL (12.0-15.0); Lymphocytes % 49.4 % (15.3-44.8); MCH 30.8 pg (27.0-35.0); MCHC 33.9 g/dL (32.0-36.0); MCV 90.9 fL (80-100); MPV 8.8 fL (7.6-11.3); Monocytes % 8.6 % (3.3-12.3); Neutrophils % 37.6 % (41.7-73.7); Nucleated Red Blood Cells % 0.2 % (0-0); Platelets 215 thou/uL (152-406); RBC Red Blood Cell Count 3.74 M/uL (3.86-4.86); Red Cell Distribution Width 14.4 % (12.1-15.2)
[2024-09-13 07:31] LABS: Albumin 3.1 g/dL (3.4-5.0); Albumin/Globulin Ratio 0.9 (1.1-1.8); Anion Gap 12.2 mEq/L (5.0-15.0); Bilirubin Total 0.9 mg/dL (0.2-1.0); Globulin 3.4 g/dL (2.3-3.5); Potassium 3.2 mEq/L (3.5-5.1); Protein, Total 6.5 g/dL (6.4-8.2)
[2024-09-13] MEDS: POTASSIUM CL SA 10 MEQ TAB PO ONE ×2 (07:41→08:56)
[2024-09-13 09:03] VITALS: BP 129/78; TEMP 98.5
[2024-09-13 10:08] VITALS: O2SAT 97
--- NOTE | 2024-09-13 10:09 | P.DS ---
Admission Date: 09/12/24 Discharge Date: 09/13/24 Disposition: ROUTINE DISCHARGE Discharge Condition: FAIR Reason for Admission: SOB Consultations: cardiology Procedures: echo - Problems (1) Acute on chronic combined systolic and diastolic heart failure Current Visit: Yes Status: Acute (2) Type 2 [place] (myocardial infarction) Current Visit: Yes Status: Acute Hospital Course: 33-year-old female with history of heart failure hypertension hyperlipidemia presented complains of shortness of breath. Symptoms started 4 days prior to arrival. She also had some leg swelling. She was also noted to elevate troponin. Cardiology was consulted. Echocardiogram was done. Patient was given IV Lasix Coreg 25 mg twice daily was ordered. Discussed she may benefit from Farxiga 10 mg at discharge. We decided to discussed that with her primary meat washer. She will follow-up with them as well as considering heart failure clinic. Vital Signs/Physical Exam: Temp Pulse Resp BP Pulse Ox 98.5 F 69 16 129/78 94 09/13/24 08:00 09/13/24 08:00 09/13/24 08:00 09/13/24 08:00 09/13/24 08:00 General: Alert, Oriented x3 HEENT: Atraumatic, Normocephalic Respiratory: Normal air movement Cardiovascular: No edema, Regular rate/rhythm Gastrointestinal: Soft and benign, Non-distended Integumentary: No rashes, No breakdown Laboratory Data at Discharge: WBC 3.90 thou/uL (4.3-10.9) L 09/13/24 04:10 Hgb 11.5 g/dL (12.0-15.0) L 09/13/24 04:10 Hct 34.0 % (36.0-45.0) L 09/13/24 04:10 Plt Count 215 thou/uL (152-406) 09/13/24 04:10 PT 21.4 SECONDS (10-13.0) H 09/11/24 23:44 INR 1.94 09/11/24 23:44 Sodium 142 mEq/L (136-145) 09/13/24 04:10 Potassium 3.2 mEq/L (3.5-5.1) L D 09/13/24 04:10 BUN 16 mg/dL (7-18) 09/13/24 04:10 Creatinine 0.93 mg/dL (0.55-1.02) 09/13/24 04:10 Glucose 97 mg/dL (74-106) 09/13/24 04:10 Phosphorus 3.5 mg/dL (2.5-4.9) 09/12/24 06:10 Magnesium 2.0 mg/dL (1.6-2.4) 09/12/24 06:10 Total Bilirubin 0.9 mg/dL (0.2-1.0) 09/13/24 04:10 AST 22 U/L (15-37) 09/13/24 04:10 ALT 31 U/L (13-56) 09/13/24 04:10 Alkaline Phosphatase 60 U/L (45-117) 09/13/24 04:10 Home Medications: Furosemide [Lasix*] 40 mg PO BIDL #60 tab 04/28/21 Valsartan [Diovan*] 160 mg PO BID #60 tab 04/28/21 Apixaban [Eliquis] 5 mg PO DAILY 08/12/24 Atorvastatin Calcium [Lipitor*] 20 mg PO DAILY 08/12/24 Potassium Chloride [Klor-Con M20] 40 mg PO DAILY 08/12/24 Sacubitril/Valsartan [Entresto 49 mg-51 mg Tablet] 1 tab PO BID 08/12/24 Spironolactone [Aldactone*] 25 mg PO DAILY 08/12/24 carvediloL [Coreg*] 25 mg PO BID 6AM 6PM #60 tab 09/13/24 New Medications: carvediloL [Coreg*] 25 mg PO BID 6AM 6PM #60 tab Diet: Low sodium Activity: Ad mary Followup: TOÑA MENDEZ [Primary Care Provider] - Time spent managing pt's care (in minutes): 30
--- NOTE | 2024-09-13 10:20 | P.PN ---
Subjective Date of Service: 09/13/24 Chief Complaint: SOB Subjective: No new changes, No C/O voiced, Tolerating diet, Ambulating, Improving Review of Systems 10-point ROS is otherwise unremarkable Physical Examination - Vital Signs Temperature: 98.5 F Blood Pressure: 129/78 Pulse: 69 Respirations: 16 Pulse Ox (%): 94 - Physical Exam General: Alert, In no apparent distress HEENT: Atraumatic, PERRLA, EOMI Neck: Supple, JVD not distended Respiratory: Clear to auscultation bilaterally, Normal air movement Cardiovascular: Regular rate/rhythm, Normal S1 S2 Gastrointestinal: Normal bowel sounds, No tenderness Musculoskeletal: No tenderness Integumentary: No rashes Neurological: Normal speech, Normal tone, Normal affect Lymphatics: No axilla or inguinal lymphadenopathy - Studies Medications List Reviewed: Yes Assessment And Plan - Current Problems (Diagnosis) (1) Acute on chronic combined systolic and diastolic heart failure Current Visit: Yes Status: Acute Plan: Patient breathing better and feels back to normal switch lasix to 40 mg po BID for 7 days then continue lasix 40 mg daily continue coreg 25 mg po bid continue home dose Entresto and Aldactone patient will benefit from Frxiga 10 mg daily at discharge patient will benefit from outpatient follow up with heart failure clinic. (2) Type 2 SC (myocardial infarction) Current Visit: Yes Status: Acute Plan: patient was diagnosed with CM 7 years ago, she had coronary angiogram done and was told she got normal coronaries troponin elevation is mild with no delta, this is type 2 SC from CHF no further cardiac work up needed.
== END 2024-09-13 10:46 | disposition home or self-care (01) | DRG 280 ==
LOC: ER 23:00 → ERHOLD 09-12 01:56 → 2ND 09-12 02:52
PROVIDERS: ADMIT Family Medicine; ATTEND Internal Medicine
DX: I11.0 Hypertensive heart disease with heart failure (principal); I50.43 Acute on chronic combined systolic (congestive) and diastolic (congestive) heart failure; I21.A1 Myocardial infarction type 2; E78.5 Hyperlipidemia, unspecified; F17.210 Nicotine dependence, cigarettes, uncomplicated; Z86.73 Personal history of transient ischemic attack (TIA), and cerebral infarction without residual deficits
CPT/HCPCS: 36415; 71045; 80048; 80053; 80076; 80307; 81001; 83735; 83880; 84100; 84484; 84703; 85025; 85610; 93005; 93306; 94760; 96374; 99285; J1650; J1940

== ENCOUNTER 2024-10-15 11:55 | Observation (INO) | payer OTHER ==
--- NOTE | 2024-10-15 12:33 | RAD REPORT ---
EXAMINATION: ONE VIEW CHEST XR CLINICAL INDICATION: DYSPNEA TECHNIQUE: Frontal chest projection is submitted. Examination is limited by patient positioning and t echnique. COMPARISON: 09/11/2024 FINDINGS: Mild interstitial pulmonary edema. The heart is significantly enlarged. No displaced fractures identi fied. IMPRESSION: Marked cardiomegaly. Mild CHF.
[2024-10-15] MEDS ORDERED: FUROSEMIDE 40 MG/4 ML VIAL ONE (12:36)
[2024-10-15 12:51] LABS: Absolute Eosinophils 0.1 K/uL (0-0.5); Absolute Monocytes 0.2 K/uL (0.1-1.3); Absolute Neutrophil 2.7 K/uL (1.8-8.0); Basophils % 0.6 % (0-1.3); Eosinophils % 1.2 % (0-4.4); Hematocrit 34.9 % (36.0-45.0); Hemoglobin 11.8 g/dL (12.0-15.0); Lymphocytes % 39.1 % (15.3-44.8); MCH 30.6 pg (27.0-35.0); MPV 8.9 fL (7.6-11.3); Monocytes % 4.9 % (3.3-12.3); Neutrophils % 54.2 % (41.7-73.7); Nucleated Red Blood Cells % 0.1 % (0-0); Platelets 261 thou/uL (152-406); RBC Red Blood Cell Count 3.87 M/uL (3.86-4.86); Red Cell Distribution Width 15.3 % (12.1-15.2)
[2024-10-15 13:11] LABS: Anion Gap 10.5 mEq/L (5.0-15.0); Potassium 3.5 mEq/L (3.5-5.1)
[2024-10-15 13:20] LABS: Troponin High Sensitivity 74.9 pg/mL (<58.9)
--- NOTE | 2024-10-15 13:35 | ER ---
Nurse's Notes [facility] Name: Tiffanie Pedroza Age: 34 yrs Sex: Female : 1990 Arrival Date: 10/15/2024 Time: 11:55 Bed 18 Private MD: Diagnosis: Acute on chronic combined systolic (congestive) and diastolic (congestive) heart failure;Elevated troponin Presentation: 10/15 12:02 Chief complaint: Patient states: SOB and cough that began 2 days ago. Denies fever. ss Coronavirus screen: Client denies travel out of the [place] in the last 14 days. Ebola Screen: Patient denies exposure to infectious person. Patient denies travel to an Ebola-affected area in the 21 days before illness onset. Initial Sepsis Screen: Does the patient meet any 2 criteria? No. Patient's initial sepsis screen is negative. Does the patient have a suspected source of infection? No. Patient's initial sepsis screen is negative. Risk Assessment: Do you want to hurt yourself or someone else? Patient reports no desire to harm self or others. Onset of symptoms was October 13, 2024. 12:02 Method Of Arrival: Ambulatory ss 12:02 Acuity: INO 3 ss Historical: - Allergies: 12:04 No Known Allergies; ss - PMHx: 12:04 Congestive heart failure; Hypertensive disorder; stroke (August 2023); ss - PSHx: 12:04 section; ss - Immunization history:: Adult Immunizations up to date. - Infectious Disease History:: Denies. - Social history:: Smoking status: Patient denies any tobacco usage or history of. Screenin:40 [facility] ED Fall Risk Assessment (Adult) History of falling in the last 3 months, dd2 including since admission No falls in past 3 months (0 pts) Confusion or Disorientation No (0 pts) Intoxicated or Sedated No (0 pts) Impaired Gait No (0 pts) Mobility Assist Device Used No (0 pt) Altered Elimination No (0 pt) Score/Fall Risk Level 0 - 2 = Low Risk Oriented to surroundings, Maintained a safe environment, Educated pt \T\ family on fall prevention, incl call for assistance when getting out of bed, Assessed \T\ reinforced patient's understanding of fall precautions, Hourly rounding (assess needs \T\ fall precautionary measures) done. Abuse screen: Denies threats or abuse. Denies injuries from another. Nutritional screening: No deficits noted. Tuberculosis screening: No symptoms or risk factors identified. Assessment: 12:32 General: Appears in no apparent distress. uncomfortable, Behavior is calm, cooperative, dd2 appropriate for age. Pain: Denies pain. Neuro: No deficits noted. Level of Consciousness is awake, alert, obeys commands, Oriented to person, place, time, situation, Appropriate for age. Cardiovascular: Reports shortness of breath, Heart tones S1 S2 present Patient's skin is warm and dry. Rhythm is sinus rhythm. Respiratory: Reports shortness of breath at rest on exertion cough that is productive, Airway is patent Respiratory effort is even, unlabored, Respiratory pattern is regular, symmetrical, Breath sounds are clear bilaterally. Onset: The symptoms/episode began/occurred X 2 DAYS AGO, the patient has mild shortness of breath. GI: No deficits noted. Abdomen is non-distended, obese, Abd is soft and non tender X 4 quads. : No deficits noted. No signs and/or symptoms were reported regarding the genitourinary system. EENT: No deficits noted. No signs and/or symptoms were reported regarding the EENT system. Derm: No deficits noted. No signs and/or symptoms reported regarding the dermatologic system. Musculoskeletal: No deficits noted. No signs and/or symptoms reported regarding the musculoskeletal system. Circulation, motion, and sensation intact. Range of motion: intact in all extremities. Vital Signs: 12:02 BP 126 / 97; Pulse 97; Resp 19; Temp 98.1(O); Pulse Ox 98% on R/A; Weight 104.33 kg; ss Height 5 ft. 5 in. ; Pain 0/10; 13:13 BP 135 / 92; Pulse 85; Resp 17; Pulse Ox 98% on R/A; dd2 14:12 BP 132 / 88; Pulse 83; Resp 17; Pulse Ox 98% on R/A; dd2 12:02 Body Mass Index 38.27 (104.33 kg, 165.1 cm) ss 12:02 Pain Scale: Adult ss [place] Coma Score: 12:40 Eye Response: spontaneous(4). Motor Response: obeys commands(6). Verbal Response: dd2 oriented(5). Total: 15. ED Course: 11:56 Patient arrived in ED. mr 11:59 [facility]C [facility] kb 11:59 Greyson Fay MD is Attending Physician. kb 12:04 Triage completed. ss 12:04 Arm band placed on right wrist. ss 12:08 KRYSTAL LAYTON, RN is Primary Nurse. dd2 12:29 XRAY Chest (1 view) In Process Unspecified. EDMS 12:40 Patient has correct armband on for positive identification. Bed in low position. Call dd2 light in reach. Side rails up X 1. Provided Education on: labs, medication. Client placed on continuous cardiac and pulse oximetry monitoring. NIBP monitoring applied. squeegeer and former on. Door closed. Noise minimized. Pillow given. Verbal reassurance given. 12:40 Basic Metabolic Panel Sent. dd2 12:40 CBC with Diff Sent. dd2 12:40 NT PRO-BNP Sent. dd2 12:40 Troponin HS Sent. dd2 12:40 No provider procedures requiring assistance completed. Initial lab(s) drawn, by me, dd2 sent to lab. EKG done, by ED staff, reviewed by Isaura YAO. Inserted saline lock: 20 gauge in right antecubital area, using aseptic technique. Blood collected. Flushed with 10 mL NS. Patient maintains SpO2 saturation greater than 95% on room air. 13:34 Santo Fay MD is Hospitalizing Provider. kb 16:47 Patient admitted, IV remains in place. dd2 Administered Medications: 12:40 Drug: Furosemide IVP 40 mg IVP once; give over 2 minutes Route: IVP; Site: right dd2 antecubital; 12:55 Follow up: Response: No adverse reaction dd2 Medication: 12:40 VIS not applicable for this client. dd2 Outcome: 13:34 Decision to Hospitalize by Provider. kb 16:47 Admitted to Med/surg accompanied by tech, via wheelchair, with chart, dd2 16:47 Condition: stable 16:47 Instructed on the need for admit, Demonstrated understanding of instructions, 16:52 Patient left the ED. dd2 Signatures: Dispatcher [employer] EDUT Isaura Lopez FNP-C FNP-CkKathy Peter, Reg Reg Alia Chavez, RN RN KRYSTAL LAYTON, TIKA RN dd2
--- NOTE | 2024-10-15 13:35 | EDPHYS ---
Physician Documentation [facility] Name: Tiffanie Pedroza Age: 34 yrs Sex: Female : 1990 Arrival Date: 10/15/2024 Time: 11:55 Bed 18 Private MD: ED Physician Greyson Fay HPI: 10/15 13:35 This 34 yrs old Black Female presents to ER via Ambulatory with complaints of Shortness kb Of Breath. 13:35 Pt is a 34 year old female who presents for shortness of breath that has been ongoing, kb but got worse today. States she doubled her lasix this morning, but still hasn't been urinating like she should. States her chest started hurting this morning as well, which she believes is due to coughing. Reports orthopnea. Historical: - Allergies: 12:04 No Known Allergies; ss - PMHx: 12:04 Congestive heart failure; Hypertensive disorder; stroke (August 2023); ss - PSHx: 12:04 section; ss - Immunization history:: Adult Immunizations up to date. - Infectious Disease History:: Denies. - Social history:: Smoking status: Patient denies any tobacco usage or history of. ROS: 13:34 Constitutional: As per HPI kb Exam: 12:54 Constitutional: This is a well developed, well nourished patient who is awake, alert, kb and in no acute distress. Head/Face: Normocephalic, atraumatic. ENT: Moist Mucous membranes Cardiovascular: Regular rate Respiratory: Respirations even and unlabored. No increased work of breathing. Talking in full sentences Abdomen/GI: Soft, non-tender. No distention Skin: Warm, dry with normal turgor. Normal color. MS/ Extremity: Pulses equal, no cyanosis. Neurovascular intact. Full, normal range of motion. Neuro: Awake and alert, GCS 15, oriented to person, place, time, and situation. 12:54 ECG was reviewed by the Attending Physician. Vital Signs: 12:02 BP 126 / 97; Pulse 97; Resp 19; Temp 98.1(O); Pulse Ox 98% on R/A; Weight 104.33 kg; ss Height 5 ft. 5 in. ; Pain 0/10; 13:13 BP 135 / 92; Pulse 85; Resp 17; Pulse Ox 98% on R/A; dd2 14:12 BP 132 / 88; Pulse 83; Resp 17; Pulse Ox 98% on R/A; dd2 12:02 Body Mass Index 38.27 (104.33 kg, 165.1 cm) ss 12:02 Pain Scale: Adult ss [place] Coma Score: 12:40 Eye Response: spontaneous(4). Motor Response: obeys commands(6). Verbal Response: dd2 oriented(5). Total: 15. MDM: 11:59 Medical Screening Exam initiated kb 13:35 Differential diagnosis: CHF exacerbation, Myocardial Infarction pulmonary edema. Data kb reviewed: vital signs, nurses notes. Consideration of Admission/Observation Patient was admitted/placed on observation. Escalation of care including admission/observation considered. Management of patient was discussed with the following: Hospitalist: Hospitalist team, pt accepted for admission under Dr Fay. Counseling: I had a detailed discussion with the patient and/or guardian regarding the historical points, exam findings, and any diagnostic results supporting the discharge/admit diagnosis, lab results, radiology results, the need for further work-up and treatment in the hospital. 10/15 12:06 Order name: Basic Metabolic Panel; Complete Time: 13:21 kb 10/15 12:06 Order name: CBC with Diff; Complete Time: 12:58 kb 10/15 12:06 Order name: NT PRO-BNP; Complete Time: 13:21 kb 10/15 12:06 Order name: Troponin HS; Complete Time: 13:21 kb 10/15 15:35 Order name: Basic Metabolic Panel EDMS 10/15 15:35 Order name: Basic Metabolic Panel EDMS 10/15 15:35 Order name: CBC with Automated Diff EDMS 10/15 15:35 Order name: CBC with Automated Diff EDMS 10/15 15:35 Order name: Magnesium EDMS 10/15 15:35 Order name: Magnesium EDMS 10/15 15:35 Order name: Phosphorus EDMS 10/15 15:35 Order name: Phosphorus EDMS 10/15 15:35 Order name: Troponin High Sensitivity EDMS 10/15 15:35 Order name: Troponin High Sensitivity EDMS 10/15 15:35 Order name: Troponin High Sensitivity EDMS 10/15 12:06 Order name: XRAY Chest (1 view); Complete Time: 12:35 kb 10/15 12:06 Order name: Cardiac monitoring; Complete Time: 12:40 kb 10/15 12:06 Order name: EKG - Nurse/Tech; Complete Time: 12:40 kb 10/15 12:06 Order name: IV Saline Lock; Complete Time: 12:40 kb 10/15 12:06 Order name: Labs collected and sent; Complete Time: 12:40 kb 10/15 12:06 Order name: O2 Per Protocol; Complete Time: 12:40 kb 10/15 12:06 Order name: O2 Sat Monitoring; Complete Time: 12:40 kb EC:54 Rate is 93 beats/min. Rhythm is regular. Right axis deviation noted. WI interval is kb normal at 182 msec. QRS interval is normal at 106 msec. QT interval is normal at 479 msec. Administered Medications: 12:40 Drug: Furosemide IVP 40 mg IVP once; give over 2 minutes Route: IVP; Site: right dd2 antecubital; 12:55 Follow up: Response: No adverse reaction dd2 Disposition: 18:39 Co-signature as Attending Physician, Greyson Fay MD I reviewed the patient's care rn provided by the Advanced Practice Provider and agree with the diagnosis and treatment plan. Disposition Summary: 10/15/24 13:34 Hospitalization Ordered Notes: Hospitalization Status: Observation kb Provider: Santo Fay Location: Telemetry/MedSurg (observation) kb Condition: Stable kb Problem: new kb Symptoms: are unchanged kb Bed/Room Type: Standard Room Assignment: 231(10/15/24 15:56) eb Diagnosis - Acute on chronic combined systolic (congestive) and diastolic (congestive) heart kb failure - Elevated troponin kb Forms: - Medication Reconciliation Form kb - SBAR form kb - Leadership Thank You Letter kb Signatures: Dispatcher [employer] EDMS Isaura Lopez, STEAMFITTER APPRENTICE-C STEAMFITTER APPRENTICE-Ckb Greyson Fay MD MD rn Blanchard, Shelby, RN RN ss Botello, Elizabeth eb DAVIS, DIANA RN RN dd2 Corrections: (The following items were deleted from the chart) 12:07 12:07 BASIC METABOLIC PANEL+C.LAB.BRZ ordered. EDMS EDMS 12:07 12:07 CBC+H.LAB.BRZ ordered. EDMS EDMS 12:07 12:07 PROBNP+C.LAB.BRZ ordered. EDMS EDMS 12:07 12:07 Troponin High Sensitivity+C.LAB.BRZ ordered. EDMS EDMS 12: 12:07 Chest Single View+RAD.RAD.BRZ ordered. EDMS EDMS 15:56 13:34 kb eb
[2024-10-15 17:08] VITALS: O2SAT 98
--- NOTE | 2024-10-15 18:21 | P.HP ---
Certification for Inpatient Patient admitted to: Observation With expected LOS: <2 Midnights Patient will require the following post-hospital care: None Practitioner: I am a practitioner with admitting privileges, knowledge of patient current condition, hospital course, and medical plan of care. Services: Services provided to patient in accordance with Admission requirements found in Title 42 Section 412.3 of the Code of Federal Regulations Patient History Date of Service: 10/15/24 Reason for admission: Congestive heart failure exacerbation History of Present Illness: Tiffanie Pedroza is a 34 year old female with pmhx heart failure reduced EF (10%), cardiomyopathy, stroke (August 2023), hypertension who presents to the ED for chief complaint of shortness of breath from retaining too much fluid. She takes 40 mg Lasix at home and realized she was feeling overloaded deciding to take 80 mg prior to arrival. She states she diuresis better with IV Lasix which is why she came to the emergency room. Lasix 40 mg IV given in the ED. Troponin is elevated requiring admission for further evaluation. Laboratory evaluation significant for BNP 10,527 and troponin 74.9. Chest x-ray reports "Mild interstitial pulmonary edema. The heart is significantly enlarged. No displaced fractures identified. Marked cardiomegaly." Tiffanie will be admitted to hospitalist service for acute on chronic combined systolic and diastolic heart failure. Allergies No Known Allergies Allergy (Unverified 04/25/21 09:20) Home Medications: Furosemide [Lasix*] 40 mg PO BIDL #60 tab 04/28/21 Valsartan [Diovan*] 160 mg PO BID #60 tab 04/28/21 Apixaban [Eliquis] 5 mg PO DAILY 08/12/24 Atorvastatin Calcium [Lipitor*] 20 mg PO DAILY 08/12/24 Potassium Chloride [Klor-Con M20] 40 mg PO DAILY 08/12/24 Sacubitril/Valsartan [Entresto 49 mg-51 mg Tablet] 1 tab PO BID 08/12/24 Spironolactone [Aldactone*] 25 mg PO DAILY 08/12/24 carvediloL [Coreg*] 25 mg PO BID 6AM 6PM #60 tab 09/13/24 - Past Medical/Surgical History Diabetic: No -: HTN -: Stroke 2023 -: 2016 - Social History Smoking Status: Former smoker Alcohol use: No CD- Drugs: No Caffeine use: Yes Review of Systems Other: per HPI Physical Examination - Vital Signs Temperature: 97.8 F Blood Pressure: 129/87 Pulse: 83 Respirations: 18 Pulse Ox (%): 97 - Physical Exam General: Alert, In no apparent distress, Oriented x3 HEENT: Atraumatic, Normocephalic Neck: Supple, 2+ carotid pulse no bruit Respiratory: Clear to auscultation bilaterally, Normal air movement Cardiovascular: Normal pulses, Regular rate/rhythm, Normal S1 S2 Capillary refill: <2 Seconds Gastrointestinal: Normal bowel sounds, Soft and benign Musculoskeletal: No clubbing Integumentary: No rashes Neurological: Normal speech, Normal tone - Studies Laboratory Data (last 24 hrs) 10/15/24 10/15/24 12:33 12:33 WBC 5.00 Hgb 11.8 L Hct 34.9 L Plt Count 261 Sodium 139 Potassium 3.5 BUN 11 Creatinine 0.93 Glucose 109 H Assessment and Plan - Plan Assessment and plan Acute on chronic, systolic and diastolic heart failure Elevated troponin possible type II cardiomyopathy -Cardiology consulted -09/12/24-ECHO "EF 10-15%, severely dilated left ventricular cavity, severely reduced left ventricular systolic function, severe global hypokinesis, Grade II diastolic dyscuntion, mild mitral regurgitation" -Lasix 80 mg taken at home, 40 mg IV given in the ED, next dose in the AM -strict intake and output -daily weights -trend troponin -continuous telemetry -on room air Hypertension Hyperlipidemia Hisotry of CVA -continue home medications DVT ppx lovenox Full code LOS 24 hour OBS Discharge Plan: Home Plan to discharge in: 24 Hours - Advance Directives Does patient have a Living Will: No Does patient have a Durable POA for Healthcare: No
[2024-10-15] MEDS: POTASSIUM CL SA 10 MEQ TAB PO ONE (19:23)
[2024-10-15 19:29] VITALS: BMI 38.2
[2024-10-15] MEDS ORDERED: FUROSEMIDE 40 MG/4 ML VIAL IV SCH (21:00)
[2024-10-15] MEDS: ATORVASTATIN 40 MG TAB PO SCH (21:12)
[2024-10-15] MEDS: ACETAMINOPHEN 325 MG TABLET PO PRN (21:15)
[2024-10-16 07:29] LABS: Absolute Eosinophils 0.1 K/uL (0-0.5); Absolute Lymphocytes (CBC) 1.9 K/uL (0.7-4.9); Absolute Monocytes 0.2 K/uL (0.1-1.3); Absolute Neutrophil 1.9 K/uL (1.8-8.0); Eosinophils % 1.6 % (0-4.4); Hematocrit 32.5 % (36.0-45.0); Hemoglobin 11.2 g/dL (12.0-15.0); MCH 30.8 pg (27.0-35.0); MCHC 34.5 g/dL (32.0-36.0); MCV 89.1 fL (80-100); MPV 8.5 fL (7.6-11.3); Monocytes % 5.5 % (3.3-12.3); Neutrophils % 46.9 % (41.7-73.7); Nucleated Red Blood Cells % 0.1 % (0-0); Platelets 240 thou/uL (152-406); RBC Red Blood Cell Count 3.64 M/uL (3.86-4.86); Red Cell Distribution Width 14.9 % (12.1-15.2)
[2024-10-16 07:49] LABS: Anion Gap 8.6 mEq/L (5.0-15.0); Magnesium 1.9 mg/dL (1.6-2.4); Phosphorus 3.5 mg/dL (2.5-4.9); Potassium 3.6 mEq/L (3.5-5.1)
[2024-10-16 07:52] LABS: Troponin High Sensitivity 76.7 pg/mL (<58.9)
[2024-10-16] MEDS: ENOXAPARIN 40 MG/0.4 ML SQ SCH (09:01)
[2024-10-16] MEDS: ASPIRIN EC 81 MG TAB PO SCH (09:01)
[2024-10-16] MEDS: FUROSEMIDE 40 MG/4 ML VIAL IV SCH (09:01)
--- NOTE | 2024-10-16 11:10 | P.CNS ---
Date of Consult: 10/16/24 Chief Complaint: Congestive heart failure exacerbation History of Present Illness: Patient with PMH of CM, presented with worsening SOB, HERRON and BLE, denies chest pain, no palpitations, no syncope. Allergies No Known Allergies Allergy (Unverified 04/25/21 09:20) Home medications list reviewed: Yes Home Medications: Furosemide [Lasix*] 40 mg PO BIDL #60 tab 04/28/21 Valsartan [Diovan*] 160 mg PO BID #60 tab 04/28/21 Apixaban [Eliquis] 5 mg PO DAILY 08/12/24 Atorvastatin Calcium [Lipitor*] 20 mg PO DAILY 08/12/24 Potassium Chloride [Klor-Con M20] 40 mg PO DAILY 08/12/24 Sacubitril/Valsartan [Entresto 49 mg-51 mg Tablet] 1 tab PO BID 08/12/24 Spironolactone [Aldactone*] 25 mg PO DAILY 08/12/24 carvediloL [Coreg*] 25 mg PO BID 6AM 6PM #60 tab 09/13/24 - Past Medical/Surgical History Diabetic: No -: HTN -: Stroke 2023 -: 2016 - Social History Smoking Status: Current every day smoker Alcohol use: No CD- Drugs: No Caffeine use: Yes Place of Residence: Home Review of Systems 10-point ROS is otherwise unremarkable Physical Examination Temp Pulse Resp BP Pulse Ox 98.0 F 78 18 147/89 H 98 10/16/24 07:59 10/16/24 07:59 10/16/24 07:59 10/16/24 07:59 10/16/24 07:59 General: Alert, In no apparent distress HEENT: Atraumatic, PERRLA, Mucous membr. moist/pink, EOMI, Sclerae nonicteric Neck: Supple, 2+ carotid pulse no bruit, No LAD, Without JVD or thyroid abnorm ality Respiratory: Clear to auscultation bilaterally, Normal air movement Cardiovascular: Regular rate/rhythm, Normal S1 S2 Gastrointestinal: Normal bowel sounds, No tenderness Musculoskeletal: No tenderness Integumentary: No rashes Neurological: Normal gait, Normal speech, Normal tone, Normal affect Lymphatics: No axilla or inguinal lymphadenopathy Laboratory Data (last 24 hrs) 10/15/24 10/15/24 12:33 12:33 WBC 5.00 Hgb 11.8 L Hct 34.9 L Plt Count 261 Sodium 139 Potassium 3.5 BUN 11 Creatinine 0.93 Glucose 109 H - Problems (1) Acute on chronic combined systolic and diastolic heart failure Current Visit: No Status: Acute Plan: patient feels better after IV diuresis resume her home medications including coreg, entresto, spironlactone and lasix at discharge add Farxiga 10 mg daily at discharge she can follow up with us or her mandarin speaking nanny (2) Hypertension Current Visit: No Status: Acute Plan: continue medications as above. Qualifiers: Hypertension type: unspecified Qualified Code(s): I10 - Essential (primary) hypertension (3) Type 2 FL (myocardial infarction) Current Visit: No Status: Acute Plan: chronic troponin leak secondary to heart failure. No further cardiac work up needed.
--- NOTE | 2024-10-16 11:58 | EKG ---
Test Date: 2024-10-15 Test Time: 12:22:59 Medical Record Retrieval Specialist: MARIAN MEASUREMENT RESULTS: Intervals: Rate: 93 ID: [id number] QRSD: 106 QT: 386 QTc: 479 [place]: P: 60 ID: [id number] QRS: 93 T: -10 INTERPRETIVE STATEMENTS: Normal sinus rhythm Rightward axis Septal infarct, age undetermined T wave abnormality, consider lateral ischemia Abnormal ECG Compared to ECG 09/11/2024 23:29:01 Right-axis deviation now present Myocardial infarct finding now present T-wave abnormality now present Left bundle-branch block no longer present ST (T wave) deviation no longer present Prolonged QT interval no longer present Possible ischemia still present Electronically Signed On 10-16-24 11:56:33 CDT by Baudilio Corea
[2024-10-16 12:39] VITALS: BP 116/88; TEMP 98.3
--- NOTE | 2024-10-16 14:39 | P.DS ---
Admission Date: 10/15/24 Discharge Date: 10/16/24 Disposition: ROUTINE DISCHARGE Discharge Condition: GOOD Reason for Admission: Congestive heart failure exacerbation Brief History of Present Illness: Tiffanie Pedroza is a 34 year old female with pmhx heart failure reduced EF (10%), cardiomyopathy, stroke (August 2023), hypertension who presents to the ED for chief complaint of shortness of breath from retaining too much fluid. She takes 40 mg Lasix at home and realized she was feeling overloaded deciding to take 80 mg prior to arrival. She states she diuresis better with IV Lasix which is why she came to the emergency room. Lasix 40 mg IV given in the ED. Troponin is elevated requiring admission for further evaluation. Laboratory evaluation significant for BNP 10,527 and troponin 74.9. Chest x-ray reports "Mild interstitial pulmonary edema. The heart is significantly enlarged. No displaced fractures identified. Marked cardiomegaly." Tiffanie will be admitted to hospitalist service for acute on chronic combined systolic and diastolic heart failure. Hospital Course: Patient was admitted to the hospital for CHF exacerbation. She has a known history of cardiomyopathy EF of around 10%. She came in with shortness of breath and was diuresed with IV Lasix. Her symptoms rapidly improved/resolved. Her troponins were mildly elevated but trended flat and are secondary to demand ischemia from her CHF. She is breathing well on room air at this time and stable for discharge with outpatient follow-up. She was seen by cardiology who recommended continuing her home medications with the addition of Farxiga 10 mg daily. She should continue to follow-up outpatient with her pipe bender. Vital Signs/Physical Exam: Temp Pulse Resp BP Pulse Ox 98.3 F 83 18 116/88 96 10/16/24 12:00 10/16/24 12:00 10/16/24 12:00 10/16/24 12:10/16/24 12:00 General: Alert, In no apparent distress, Oriented x3 HEENT: Atraumatic, PERRLA Neck: Supple, JVD not distended Respiratory: Clear to auscultation bilaterally, Normal air movement Cardiovascular: Regular rate/rhythm, Normal S1 S2 Gastrointestinal: Normal bowel sounds, No tenderness Musculoskeletal: No tenderness Integumentary: No rashes Neurological: Normal speech, Normal affect Laboratory Data at Discharge: WBC 4.20 thou/uL (4.3-10.9) L 10/16/24 07:19 Hgb 11.2 g/dL (12.0-15.0) L 10/16/24 07:19 Hct 32.5 % (36.0-45.0) L 10/16/24 07:19 Plt Count 240 thou/uL (152-406) 10/16/24 07:19 Sodium 139 mEq/L (136-145) 10/16/24 07:19 Potassium 3.6 mEq/L (3.5-5.1) 10/16/24 07:19 BUN 12 mg/dL (7-18) 10/16/24 07:19 Creatinine 0.92 mg/dL (0.55-1.02) 10/16/24 07:19 Glucose 98 mg/dL (74-106) 10/16/24 07:19 Phosphorus 3.5 mg/dL (2.5-4.9) 10/16/24 07:19 Magnesium 1.9 mg/dL (1.6-2.4) 10/16/24 07:19 Home Medications: Furosemide [Lasix*] 40 mg PO BIDL #60 tab 04/28/21 Valsartan [Diovan*] 160 mg PO BID #60 tab 04/28/21 Apixaban [Eliquis] 5 mg PO DAILY 08/12/24 Atorvastatin Calcium [Lipitor*] 20 mg PO DAILY 08/12/24 Potassium Chloride [Klor-Con M20] 40 mg PO DAILY 08/12/24 Sacubitril/Valsartan [Entresto 49 mg-51 mg Tablet] 1 tab PO BID 08/12/24 Spironolactone [Aldactone*] 25 mg PO DAILY 08/12/24 carvediloL [Coreg*] 25 mg PO BID 6AM 6PM #60 tab 09/13/24 Dapagliflozin Propanediol [Farxiga] 10 mg PO DAILY #30 tab 10/16/24 New Medications: Dapagliflozin Propanediol [Farxiga] 10 mg PO DAILY #30 tab Physician Discharge Instructions: Patient was admitted to the hospital for CHF exacerbation. She has a known history of cardiomyopathy EF of around 10%. She came in with shortness of breath and was diuresed with IV Lasix. Her symptoms rapidly improved/resolved. Her troponins were mildly elevated but trended flat and are secondary to demand ischemia from her CHF. She is breathing well on room air at this time and stable for discharge with outpatient follow-up. She was seen by cardiology who recommended continuing her home medications with the addition of Farxiga 10 mg daily. She should continue to follow-up outpatient with her pipe bender. Diet: AHA Activity: Ad mary Followup: Baudilio Corea MD [ACTIVE - CAN ADMIT] - 1-2 Weeks TOÑA MENDEZ [Primary Care Provider] - 1-2 Weeks Time spent managing pt's care (in minutes): 46
== END 2024-10-16 12:58 | disposition home or self-care (01) ==
LOC: ER 11:55 → ERHOLD 15:27 → 2ND 16:23
PROVIDERS: ADMIT Hospitalist; ATTEND Hospitalist
DX: I50.43 Acute on chronic combined systolic (congestive) and diastolic (congestive) heart failure (principal); I21.A1 Myocardial infarction type 2; R79.89 Other specified abnormal findings of blood chemistry; O90.3 Peripartum cardiomyopathy; I10 Essential (primary) hypertension; E78.5 Hyperlipidemia, unspecified; Z86.73 Personal history of transient ischemic attack (TIA), and cerebral infarction without residual deficits; F17.210 Nicotine dependence, cigarettes, uncomplicated; J81.1 Chronic pulmonary edema
CPT/HCPCS: 93005; 85025 ×2; 80048 ×2; 36415; 83735; 84100; 84484 ×3; 83880; 71045; 96374; 99285; J1938 ×2; J1650; G0378

== ENCOUNTER 2025-01-26 14:18 | Emergency (ER) | payer OTHER ==
[2025-01-26] MEDS ORDERED: ACETAMINOPHEN 500 MG TAB ONE (15:30)
[2025-01-26] MEDS ORDERED: LIDOCAINE 2% MPF 5 ML VIAL ONE (15:30)
[2025-01-26] MEDS ORDERED: LIDOCAINE 2% INJ, 20 mL 0 ML ONE (15:33)
[2025-01-26] MEDS ORDERED: LIDOCAINE 2% W/EPI 1:200,000 MPF 20 ML VIAL IM ONE (15:42)
--- NOTE | 2025-01-26 16:48 | ER ---
Nurse's Notes [facility] Name: Tiffanie Pedroza Age: 34 yrs Sex: Female : 1990 Arrival Date: 01/26/2025 Time: 14:18 Bed 12 Private MD: Diagnosis: Cutaneous abscess of back [any part, except buttock]-right flank Presentation: 01/26 14:23 Chief complaint: Patient states: abscess to right mid back that started about a week me1 ago. Pain level 8/10. Patient is 14 weeks . Coronavirus screen: Vaccine status: Patient reports receiving the 2nd dose of the covid vaccine. Ebola Screen: No symptoms or risks identified at this time. Initial Sepsis Screen: Does the patient meet any 2 criteria? No. Patient's initial sepsis screen is negative. Does the patient have a suspected source of infection? No. Patient's initial sepsis screen is negative. Risk Assessment: Do you want to hurt yourself or someone else? Patient reports no desire to harm self or others. Onset of symptoms is unknown. 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 - Infectious Disease History:: Denies. - Social history:: Smoking status: Patient denies any tobacco usage or history of. Screenin:15 [facility] ED Fall Risk Assessment (Adult) History of falling in the last 3 months, cm10 including since admission No falls in past 3 months (0 pts) Confusion or Disorientation No (0 pts) Intoxicated or Sedated No (0 pts) Impaired Gait No (0 pts) Mobility Assist Device Used No (0 pt) Altered Elimination No (0 pt) Score/Fall Risk Level 0 - 2 = Low Risk Oriented to surroundings, Maintained a safe environment, Hourly rounding (assess needs \T\ fall precautionary measures) done. Abuse screen: Denies threats or abuse. Denies injuries from another. Nutritional screening: No deficits noted. Tuberculosis screening: No symptoms or risk factors identified. Assessment: 15:40 General: Appears in no apparent distress. uncomfortable, Behavior is calm, cooperative. cm10 Pain: Complains of pain in right flank. Neuro: No deficits noted. Level of Consciousness is awake, alert, obeys commands, Oriented to person, place, time, situation, Appropriate for age. Respiratory: No deficits noted. Airway is patent Respiratory effort is even, unlabored, Respiratory pattern is regular, symmetrical. Derm: Abscess located on right flank. 17:11 Reassessment: heart tones unable to be obtained at this time. Pt states that she cm10 saw her OB last week and obtained FHTs in the 160s. Pt follows up Wednesday with OB. Pt denies any vaginal bleeding or cramping at this time. provider made aware that unable to obtain at this time and okay to discharge. Vital Signs: 14:23 BP 128 / 72; Pulse 73; Resp 17; Temp 98.2; Pulse Ox 98% ; Weight 113.4 kg; Height 5 ft. me1 5 in. ; Pain 8/10; 14:23 Body Mass Index 41.60 (113.40 kg, 165.1 cm) me1 14:23 Pain Scale: Adult me1 ED Course: 14:20 Patient arrived in ED. rg4 14:24 Victor Hugo Valdez PA-C is PHCP. cp 14:24 Patricio John MD is Attending Physician. cp 14:25 Triage completed. me1 14:25 Arm band placed on Patient placed in waiting room. me1 15:40 Nhi Morrow, RN is Primary Nurse. cm10 17:15 Patient has correct armband on for positive identification. Provided Education on: cm10 Follow-up instructions. 17:16 No provider procedures requiring assistance completed. Patient did not have IV access cm10 during this emergency room visit. Administered Medications: 15:40 Drug: Acetaminophen PO 1000 mg PO once Route: PO; cm10 17:10 Follow up: Response: No adverse reaction cm10 17:11 Drug: Lidocaine Infiltration (2 %) 20 ml 5 ml Infiltration once; to bedside with cm10 epinephrine Volume: 5 ml; Route: Infiltration; 17:11 Drug: Clindamycin PO 300 mg PO once Route: PO; cm10 17:17 Follow up: Response: Medication administered at discharge. cm10 Medication: 17:15 VIS not applicable for this client. cm10 Outcome: 16:47 Discharge ordered by MD. cp 17:16 Discharged to home ambulatory, cm10 17:16 Condition: good 17:16 Discharge instructions given to patient, Instructed on discharge instructions, follow up and referral plans. medication usage, Demonstrated understanding of instructions, follow-up care, medications, wound care, Prescriptions given X 1, 17:17 Patient left the ED. cm10 Signatures: Victor Hugo Valdez, PA-C PANinfa Blue cp rg4 Nhi Morrow RN RN cm10 Jennifer Sandoval RN RN me1
--- NOTE | 2025-01-26 16:48 | EDPHYS ---
Physician Documentation [facility] Name: Tiffanie Pedroza Age: 34 yrs Sex: Female : 1990 Arrival Date: 01/26/2025 Time: 14:18 Bed 12 Private MD: ED Physician Patricio John HPI: 01/26 14:29 This 34 yrs old Black Female presents to ER via Ambulatory with complaints of Abscess. cp 14:29 The patient presents with an abscess of the right mid back. Description: draining, cp swollen. 14:29 Onset: The symptoms/episode began/occurred 1 week(s) ago. cp 14:29 Possible cause(s): unknown. Associated signs and symptoms: Pertinent positives: cp discharge, drainage, patient currently , Pertinent negatives: fever. 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 - Infectious Disease History:: Denies. - Social history:: Smoking status: Patient denies any tobacco usage or history of. ROS: 14:35 Skin: Positive for abscess, of the right flank, cp 14:35 Eyes: Negative for injury, pain, redness, and discharge, cp 14:35 Constitutional: Negative for body aches, chills, fever, poor PO intake, 14:35 Abdomen/GI: Negative for abdominal pain, vomiting, diarrhea, constipation, 14:35 : Negative for urinary symptoms, vaginal bleeding, 14:35 All other systems are negative, Exam: 14:40 Constitutional: The patient appears in no acute distress, alert, awake, non-toxic, well cp developed, well nourished, obese, uncomfortable, 14:40 Head/Face: Normocephalic, atraumatic. cp 14:40 Eyes: Periorbital structures: appear normal, Conjunctiva: normal, no exudate, no injection, Sclera: no appreciated abnormality, Lids and lashes: appear normal, bilaterally, 14:40 ENT: External ear(s): are unremarkable, Mouth: is normal, Posterior pharynx: Airway: no evidence of obstruction, patent, 14:40 Chest/axilla: Inspection: normal, 14:40 Cardiovascular: Rate: normal, 14:40 Respiratory: the patient does not display signs of respiratory distress, 14:40 Abdomen/GI: Inspection: obese 14:40 Back: silver dollar size abscess noted right flank with drainage, mild erythema, tenderness to palpation, Vital Signs: 14:23 BP 128 / 72; Pulse 73; Resp 17; Temp 98.2; Pulse Ox 98% ; Weight 113.4 kg; Height 5 ft. me1 5 in. ; Pain 8/10; 14:23 Body Mass Index 41.60 (113.40 kg, 165.1 cm) me1 14:23 Pain Scale: Adult wa1 Procedures: 16:45 I \T\ D: Incision and drainage was performed for an abscess of the right flank Prepped cp with Betadine, Anesthetized with ml's 2% Lidocaine with epinephrine. 7 ml's 2% Lidocaine with epinephrine. Incised with #11 blade. Drained moderate amount purulent fluid. Packed with iodoform gauze, Dressing: sterile 4x4 gauze, the patient tolerated the procedure well. MDM: 16:47 Medical Screening Exam initiated 16:47 Data reviewed: vital signs, nurses notes, and as a result, I will discharge patient. 16:47 Differential diagnosis: abscess, cellulitis, insect bite. I considered the following cp discharge prescriptions or medication management in the emergency department Medications were administered in the Emergency Department. See MAR. Care significantly affected by the following chronic conditions: Hypertension, Congestive Heart Failure, Obesity. Counseling: I had a detailed discussion with the patient and/or guardian regarding the historical points, exam findings, and any diagnostic results supporting the discharge/admit diagnosis, to return to the emergency department if symptoms worsen or persist or if there are any questions or concerns that arise at home. Response to treatment: the patient's symptoms have mildly improved after treatment, and as a result, I will discharge patient. 01/26 14:37 Order name: I\T\D Setup; Complete Time: 16:06 cp Administered Medications: 15:40 Drug: Acetaminophen PO 1000 mg PO once Route: PO; cm10 17:10 Follow up: Response: No adverse reaction cm10 17:11 Drug: Lidocaine Infiltration (2 %) 20 ml 5 ml Infiltration once; to bedside with cm10 epinephrine Volume: 5 ml; Route: Infiltration; 17:11 Drug: Clindamycin PO 300 mg PO once Route: PO; cm10 17:17 Follow up: Response: Medication administered at discharge. cm10 Disposition Summary: 01/26/25 16:47 Discharge Ordered Notes: Location: Home cp Problem: new cp Symptoms: have improved cp Condition: Stable cp Diagnosis - Cutaneous abscess of back [any part, except buttock] - right flank cp Followup: cp - With: Private Physician - When: 48 Hours - Reason: Wound Recheck Discharge Instructions: - Discharge Summary Sheet cp - Skin Abscess cp - Incision and Drainage cp - Incision and Drainage, Care After cp Forms: - Medication Reconciliation Form cp - Antibiotic Education cp - Prescription Opioid Use cp - Patient Portal Instructions cp - Leadership Thank You Letter cp Prescriptions: - Clindamycin HCl 300 mg Oral Capsule - take 1 capsule ORAL route every 6 hours for 10 days; 40 capsule; Refills: 0, cp Product Selection Permitted Signatures: Victor Hugo Valdez PA-C PA-C cp Martinez, Clarissa, RN RN cm10 Jennifer Sandoval RN RN me1 Corrections: (The following items were deleted from the chart) 17:11 15:18 FHT's ordered. cp cm10
[2025-01-26 17:47] VITALS: BP 128/72; TEMP 98.2; O2SAT 98
== END 2025-01-26 17:17 | disposition home or self-care (01) ==
LOC: ER 14:18
PROC: 0H96XZZ Drainage of Back Skin, External Approach (ICD-10-PCS; principal; 2025-01-26)
DX: L02.212 Cutaneous abscess of back [any part, except buttock and flank] (principal)
CPT/HCPCS: 99283; 10060; J2003

== ENCOUNTER 2025-03-11 10:03 | Emergency (ER) | payer OTHER ==
[2025-03-11] MEDS ORDERED: ONDANSETRON 4 MG/2 ML VIAL ONE (10:37)
[2025-03-11] MEDS ORDERED: NA CHLORIDE 0.9% 1,000 ML ONE (10:38)
[2025-03-11] MEDS ORDERED: LOPERAMIDE HCL 2 MG CAPSULE ONE (10:38)
[2025-03-11 10:43] LABS: Absolute Lymphocytes (CBC) 0.1 K/uL (0.7-4.9); Hematocrit 36.7 % (36.0-45.0); Hemoglobin 12.8 g/dL (12.0-15.0); MCH 32.8 pg (27.0-35.0); MCHC 34.8 g/dL (32.0-36.0); MCV 94.1 fL (80-100); MPV 8.1 fL (7.6-11.3); Nucleated RBC Absolute Count 0.0 (0-0); Nucleated Red Blood Cells % 0.0 % (0-0); RBC Red Blood Cell Count 3.90 M/uL (3.86-4.86); White Blood Count 7.20 thou/uL (4.3-10.9)
[2025-03-11 10:55] LABS: Anion Gap 12.6 mEq/L (5.0-15.0); BUN Blood Urea Nitrogen 12.0 mg/dL (7-18); Glucose Level 117.0 mg/dL (74-106); Potassium 3.6 mEq/L (3.5-5.1)
[2025-03-11 10:59] LABS: Influenza A Ag Negative; Influenza B Ag Negative; SARS-CoV-2 Antigen Rapid Res Negative (Negative)
[2025-03-11 11:30] LABS: Blood Morphology Comment NOT SEEN (NOT SEEN); White Blood Cell Scan OK (OK)
--- NOTE | 2025-03-11 12:05 | RAD REPORT ---
EXAM: OB Limited HISTORY: ABD CRAMPING, COMPARISON: None TECHNIQUE: Multiple grayscale and color Doppler images were obtained in a transabdominal pelvic ultra sound. Spectral analysis of the Doppler waveforms of the ovaries were performed. FINDINGS: UTERUS: Single IUP identified with positive heart tones. The heart rate measures 151 bpm. The f emur length measures 3.4 cm which is consistent with 20 weeks 3 day. The fetus is in breech position. The placenta is anterior. No previa. The cervix is closed measuring 3.9 cm. Amniotic fluid volume is subjectively normal. RIGHT OVARY: Not visualized, possibly obscured by bowel gas. LEFT OVARY: Not visualized, possibly obscured by bowel gas. IMPRESSION: Single live IUP with positive heart tones measuring 20 weeks 3 day. Closed cervix.
--- NOTE | 2025-03-11 12:08 | EDPHYS ---
Physician Documentation [facility] Name: Tiffanie Pedroza Age: 34 yrs Sex: Female : 1990 Arrival Date: 03/11/2025 Time: 10:03 Bed 8 Private MD: DESIRE Physician Victor Hugo Wang HPI: 03/11 10:21 This 34 yrs old Black Female presents to ER via Unassigned with complaints of sb4 Nausea/Vomiting/Diarrhea, Abdominal Pain - 20 WKS . 10:21 G2, P1 20-wk 34-year-old female presents today with complaints of nausea, sb4 vomiting, diarrhea that began within the middle the night. She thinks that the chicken and rice she ate may have been bad. Reports some mild abdominal cramping. Has a history of a CVA and is considered a high risk so wanted to be evaluated. Denies any fever or chills. Denies any pelvic pain or vaginal bleeding. 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 - Infectious Disease History:: Denies. - Social history:: Smoking status: Patient/guardian denies using tobacco, the patient reports quitting approximately 2 years ago. ROS: 10:21 Constitutional: Negative for fever, chills, and weight loss, sb4 10:21 Abdomen/GI: Positive for nausea, vomiting, and diarrhea, 10:21 All other systems are negative, Exam: 10:21 Constitutional: This is a well developed, well nourished patient who is awake, alert, sb4 and in no acute distress. Head/Face: Normocephalic, atraumatic. Eyes: Extra-ocular motions intact. Periorbital areas with no swelling, redness, or edema. ENT: Mucous membranes moist. Cardiovascular: Regular rate and rhythm with a normal S1 and S2. Respiratory: No increased work of breathing, no retractions or nasal flaring. Abdomen/GI: Soft, non-tender, no distension. Skin: Warm, dry with normal turgor. Normal color with no rashes, no lesions, and no evidence of cellulitis. Vital Signs: 10:28 BP 111 / 76; Pulse 91; Resp 18; Pulse Ox 99% on R/A; Weight 106.59 kg; Height 5 ft. 5 iw in. ; Pain 6/10; 10:45 BP 105 / 51; Pulse 83; Resp 18; Temp 98.8; Pulse Ox 100% on R/A; nh2 12:30 BP 134 / 83; Pulse 81; Resp 16; Pulse Ox 96% ; cm10 10:28 Body Mass Index 39.11 (106.59 kg, 165.1 cm) iw 10:28 Pain Scale: Adult iw MDM: 10:11 Medical Screening Exam initiated sb4 10:22 Differential diagnosis: gastritis, viral gastroenteritis, vomiting of , sb4 reflux, viral syndrome. 12:07 Data reviewed: vital signs, nurses notes, lab test result(s), radiologic studies, sb4 ultrasound, and as a result, I will discharge patient. Counseling: I had a detailed discussion with the patient and/or guardian regarding the historical points, exam findings, and any diagnostic results supporting the discharge/admit diagnosis, lab results, radiology results, the need for outpatient follow up, for definitive care, to return to the emergency department if symptoms worsen or persist or if there are any questions or concerns that arise at home. 03/11 10:18 Order name: CBC with Diff; Complete Time: 11:33 sb4 03/11 10:18 Order name: BMP; Complete Time: 10:59 sb4 03/11 10:18 Order name: COVID-19 Ag + Flu A+B Ag; Complete Time: 10:59 sb4 03/11 10:46 Order name: CBC Smear Scan; Complete Time: 11:33 EDMS 03/11 10:18 Order name: US OB Limited; Complete Time: 12:06 sb4 03/11 10:18 Order name: IV Start; Complete Time: 10:47 sb4 03/11 11:16 Order name: PO challenge; Complete Time: 11:24 sb4 Administered Medications: 10:44 Drug: NS 0.9% IV 1000 ml IV at 1000 ml once; to be given as a bolus over 60 minutes nh2 Route: IV; Rate: 1000 ml; Site: right antecubital; 11:44 Follow up: Response: No adverse reaction; IV Status: Completed infusion; IV Intake: cm10 500ml 10:44 Drug: Ondansetron IVP 4 mg IVP once; over 2 minutes Route: IVP; Site: right antecubital;nh2 11:04 Follow up: Response: No adverse reaction; Nausea is decreased nh2 10:44 Drug: Loperamide PO 2 mg PO once Route: PO; nh2 11:04 Follow up: Response: No adverse reaction nh2 Disposition Summary: 03/11/25 12:07 Discharge Ordered Notes: Location: Home sb4 Problem: new sb4 Symptoms: have improved sb4 Condition: Stable sb4 Diagnosis - Viral gastroenteritis sb4 - 20 weeks gestation of sb4 Followup: sb4 - With: Private Physician - When: 2 - 3 days - Reason: Recheck today's complaints, Re-evaluation by your physician Discharge Instructions: - Discharge Summary Sheet sb4 - Abdominal Pain During sb4 - Viral Gastroenteritis, Adult, [id number] sb4 Forms: - Patient Portal Instructions sb4 - Leadership Thank You Letter sb4 Signatures: Dispatcher [employer] Lizzette Sin, Gracia Rahman RN, PAVinicio PAVinicio sb4 Scott Leach Jr, RN RN nh2 Nhi Morrow RN cm10
--- NOTE | 2025-03-11 12:08 | ER ---
Nurse's Notes [facility] Name: Tiffanie Pedroza Age: 34 yrs Sex: Female : 1990 Arrival Date: 03/11/2025 Time: 10:03 Bed 8 Private MD: Diagnosis: Viral gastroenteritis;20 weeks gestation of Presentation: 03/11 10:24 Chief complaint: Patient states: vomiting, diarrhea, lower abd pain since last night, iw can't keep anything down, is 20 weeks . Coronavirus screen: At this time, the client does not indicate any symptoms associated with coronavirus-19. Ebola Screen: No symptoms or risks identified at this time. Initial Sepsis Screen: Does the patient meet any 2 criteria? No. Patient's initial sepsis screen is negative. Does the patient have a suspected source of infection? No. Patient's initial sepsis screen is negative. Risk Assessment: Do you want to hurt yourself or someone else? Patient reports no desire to harm self or others. Onset of symptoms was March 11, 2025. 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 - Infectious Disease History:: Denies. - Social history:: Smoking status: Patient/guardian denies using tobacco, the patient reports quitting approximately 2 years ago. Screenin:46 [facility] ED Fall Risk Assessment (Adult) History of falling in the last 3 months, nh2 including since admission No falls in past 3 months (0 pts) Confusion or Disorientation No (0 pts) Intoxicated or Sedated No (0 pts) Impaired Gait No (0 pts) Mobility Assist Device Used No (0 pt) Altered Elimination No (0 pt) Score/Fall Risk Level 0 - 2 = Low Risk Oriented to surroundings, Maintained a safe environment, Educated pt \T\ family on fall prevention, incl call for assistance when getting out of bed, Assessed \T\ reinforced patient's understanding of fall precautions. Abuse screen: Denies threats or abuse. Denies injuries from another. Nutritional screening: No deficits noted. Tuberculosis screening: No symptoms or risk factors identified. Assessment: 10:25 General: Appears uncomfortable, Behavior is calm, cooperative, appropriate for age, nh2 Denies fever, feeling ill, fatigue, chills. Pain: Denies pain. 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 Neuro: Denies headache. Cardiovascular: Denies chest pain, Patient's skin is warm and dry. Respiratory: Airway is patent Trachea midline Respiratory effort is even, unlabored, Respiratory pattern is regular, symmetrical, Denies cough, shortness of breath. GI: Abdomen is round non-distended, Bowel sounds present X 4 quads. Abd is soft and non tender X 4 quads. Reports diarrhea, nausea, vomiting. : No signs and/or symptoms were reported regarding the genitourinary system. EENT: No signs and/or symptoms were reported regarding the EENT system. Derm: Skin is intact, Skin is normal. Musculoskeletal: Circulation, motion, and sensation intact. Range of motion: intact in all extremities. 11:05 Reassessment: Patient and/or family updated on plan of care and expected duration. Pain nh2 level reassessed. Patient is alert, oriented x 3, equal unlabored respirations, skin warm/dry/pink. Patient denies pain at this time. 11:25 Reassessment: Pt tolerated PO challenge. cm10 12:31 Reassessment: Patient appears in no apparent distress at this time. Patient and/or cm10 family updated on plan of care and expected duration. Pain level reassessed. Patient is alert, oriented x 3, equal unlabored respirations, skin warm/dry/pink. Patient states feeling better. Patient states symptoms have improved. Vital Signs: 10:28 BP 111 / 76; Pulse 91; Resp 18; Pulse Ox 99% on R/A; Weight 106.59 kg; Height 5 ft. 5 iw in. ; Pain 6/10; 10:45 BP 105 / 51; Pulse 83; Resp 18; Temp 98.8; Pulse Ox 100% on R/A; nh2 12:30 BP 134 / 83; Pulse 81; Resp 16; Pulse Ox 96% ; cm10 10:28 Body Mass Index 39.11 (106.59 kg, 165.1 cm) iw 10:28 Pain Scale: Adult iw ED Course: 10:08 Patient arrived in ED. cj3 10:09 Gracia Oconnor PA-C is PHCP. sb4 10:09 Victor Hugo Wang MD is Attending Physician. sb4 10:20 Inserted saline lock: 20 gauge in right antecubital area, using aseptic technique. nh2 Blood collected. Flushed with 10 mL NS. 10:23 Scott Leach Jr, RN is Primary Nurse. nh2 10:25 Triage completed. iw 10:25 Arm band placed on. iw 10:46 Patient has correct armband on for positive identification. Bed in low position. Call nh2 light in reach. Side rails up X 1. Provided Education on: using call light for assistance. 10:47 No provider procedures requiring assistance completed. nh2 11:46 US OB Limited In Process Unspecified. EDMS 12:31 IV discontinued, intact, bleeding controlled, No redness/swelling at site. Pressure cm10 dressing applied. Administered Medications: 10:44 Drug: NS 0.9% IV 1000 ml IV at 1000 ml once; to be given as a bolus over 60 minutes nh2 Route: IV; Rate: 1000 ml; Site: right antecubital; 11:44 Follow up: Response: No adverse reaction; IV Status: Completed infusion; IV Intake: cm10 500ml 10:44 Drug: Ondansetron IVP 4 mg IVP once; over 2 minutes Route: IVP; Site: right antecubital;nh2 11:04 Follow up: Response: No adverse reaction; Nausea is decreased nh2 10:44 Drug: Loperamide PO 2 mg PO once Route: PO; nh2 11:04 Follow up: Response: No adverse reaction nh2 Medication: 10:47 VIS not applicable for this client. nh2 Intake: 11:44 IV: 500ml; Total: 500ml. cm10 Outcome: 12:07 Discharge ordered by . sb4 12:31 Discharged to home ambulatory, cm10 12:31 Condition: good 12:31 Discharge instructions given to patient, Instructed on discharge instructions, follow up and referral plans. Demonstrated understanding of instructions, follow-up care, 12:31 Patient left the ED. cm10 Signatures: Dispatcher [employer] Lizzette Sin RN RN iw Brown, Sophia, PAVinicio PAVinicio [id number] Nhi Morrow RN RN cm10 Scott Leach Jr, RN RN [facility] Larissa Singh 3
[2025-03-11 12:47] VITALS: TEMP 98.8
[2025-03-11 12:48] VITALS: BP 134/83; O2SAT 96
== END 2025-03-11 12:31 | disposition home or self-care (01) ==
LOC: ER 10:03
DX: O99.612 Diseases of the digestive system complicating pregnancy, second trimester (principal); A08.4 Viral intestinal infection, unspecified; Z3A.20 20 weeks gestation of pregnancy; Z11.52 Encounter for screening for COVID-19; Z86.73 Personal history of transient ischemic attack (TIA), and cerebral infarction without residual deficits
CPT/HCPCS: 96361; 85025; 80048; 36415; 76815; 96374; 99284; 87428; J2405; J7030